=== PATIENT | male | born 1985 | race Caucasian/White ===

== ENCOUNTER 2018-10-16 18:52 | Emergency (ER) | payer SELFPAY ==
--- NOTE | 2018-10-16 19:23 | ER Document Report ---
ED Medical Screen (RME) - General Chief Complaint: Syncope Stated Complaint: SYNCOPE Time Seen by Provider: 10/16/18 19:13 Primary Care Provider: OLGA ARAUJO MD [Primary Care Provider] - Follow up as needed Mode of Arrival: Ambulatory Information source: Patient Notes: This 33-year-old male presents emergency department with reports that he has had a syncopal episode every day for the past 6 days except for today. He reports he has been increased thirst increased urination feeling very shaky. Reports he has been told he was prediabetic. Patient is very obese. Patient reports that when he wakes up he is gasping for air having to hard time breathing. Reports extreme shortness of breath. No recent trips no recent trauma. Brother reports that his lips will turn blue when he passes out. He reports syncopal episode will last 2 to 3 minutes and it is witnessed. He reports he is not standing up he is sitting down when it happens. I have greeted and performed a rapid initial assessment of this patient. A comprehensive ED assessment and evaluation of the patient, analysis of test results and completion of the medical decision making process will be conducted by additional ED providers. Dictation of this chart was performed using voice recognition software; therefore, there may be some unintended grammatical errors. TRAVEL OUTSIDE OF THE [place] IN LAST 30 DAYS: No - Related Data Allergies/Adverse Reactions: erythromycin base [Erythromycin Base] Adverse Reaction (Verified 01/04/14 10:10) fever and vomiting Past Medical History - Social History Chew tobacco use (# tins/day): No Frequency of alcohol use: None Drug Abuse: None - Past Medical History Cardiac Medical History: Reports: Hx Hypertension - does not take medications Endocrine Medical History: Reports: Hx Diabetes Mellitus Type 2 - pre-DM Renal/ Medical History: Denies: Hx Peritoneal Dialysis Past Surgical History: Reports: Hx Orthopedic Surgery - right ankle - Immunizations Hx Diphtheria, Pertussis, Tetanus Vaccination: Yes Physical Exam - Vital signs Vitals: Temp Pulse Resp BP Pulse Ox 98.9 F 134 H 30 H 183/94 H 98 10/16/18 18:58 10/16/18 18:58 10/16/18 18:58 10/16/18 18:58 10/16/18 18:58 Course - Vital Signs Vital signs: Temp Pulse Resp BP Pulse Ox 98.9 F 134 H 30 H 183/94 H 98 10/16/18 18:58 10/16/18 18:58 10/16/18 18:58 10/16/18 18:58 10/16/18 18:58 Doctor's Discharge - Discharge Referrals: OLGA ARAUJO MD [Primary Care Provider] - Follow up as needed
--- NOTE | 2018-10-16 20:19 | RADIOLOGY REPORT (SQ) ---
EXAM DESCRIPTION: CLINICAL HISTORY: 33 years Male, sob COMPARISON: None. FINDINGS: Cardiomediastinal silhouette is not enlarged. No suspicious lung pleural or bone abnormalities. IMPRESSION: Negative chest x-ray
[2018-10-16] MEDS ORDERED: NORMAL SALINE 1000 ML 1,000 ML IV ONE (20:31)
--- NOTE | 2018-10-16 20:31 | ER Document Report ---
ED General - General Chief Complaint: Syncope Stated Complaint: SYNCOPE Time Seen by Provider: 10/16/18 19:13 Primary Care Provider: OLGA ARAUJO MD [NO LOCAL MD] - Follow up as needed Mode of Arrival: Ambulatory TRAVEL OUTSIDE OF THE [place] IN LAST 30 DAYS: No - HPI Patient complains to provider of: Syncope Notes: Morbidly obese 33-year-old male presents with episode of syncope at home today. It occurred while patient was rising from a seated position. Patient suffers from obstructive sleep apnea, obese hypoventilation syndrome. Patient is constantly short of breath. Patient also endorses a weird sensation that he is cold every day. Denies chest pain, cough, nausea, vomiting, fever, chills, trauma. Patient states he does change his job and has not been able to see his family doctor secondary insurance changes. - Related Data Allergies/Adverse Reactions: erythromycin base [Erythromycin Base] Adverse Reaction (Verified 01/04/14 10:10) fever and vomiting Past Medical History - General Information source: Patient - Social History Smoking Status: Never Smoker Chew tobacco use (# tins/day): No Frequency of alcohol use: None Drug Abuse: None Family History: Reviewed & Not Pertinent Patient has suicidal ideation: No Patient has homicidal ideation: No - Past Medical History Cardiac Medical History: Reports: Hx Hypertension - does not take medications Endocrine Medical History: Reports: Hx Diabetes Mellitus Type 2 - pre-DM Renal/ Medical History: Denies: Hx Peritoneal Dialysis Past Surgical History: Reports: Hx Orthopedic Surgery - right ankle - Immunizations Hx Diphtheria, Pertussis, Tetanus Vaccination: Yes Review of Systems - Review of Systems Notes: REVIEW OF SYSTEMS: CONSTITUTIONAL: -fevers, -chills EENT: -eye pain, -difficulty swallowing, -nasal congestion CARDIOVASCULAR: -chest pain, -syncope. RESPIRATORY: -cough, -SOB GASTROINTESTINAL: -abdominal pain, -nausea, -vomiting, -diarrhea GENITOURINARY: -dysuria, -hematuria MUSCULOSKELETAL: -back pain, -neck pain SKIN: -rash or skin lesions. HEMATOLOGIC: -easy bruising or bleeding. LYMPHATIC: -swollen, enlarged glands. NEUROLOGICAL: -altered mental status or loss of consciousness, -headache, - neurologic symptoms PSYCHIATRIC: -anxiety, -depression. ALL OTHER SYSTEMS REVIEWED AND NEGATIVE. Physical Exam - Vital signs Vitals: Temp Pulse Resp BP Pulse Ox 98.9 F 134 H 30 H 183/94 H 98 10/16/18 18:58 10/16/18 18:58 10/16/18 18:58 10/16/18 18:58 10/16/18 18:58 - Notes Notes: PHYSICAL EXAMINATION: GENERAL: Well-appearing, well-nourished and in no acute distress. HEAD: Atraumatic, normocephalic. EYES: Pupils equal round and reactive to light, extraocular movements intact, sclera anicteric, conjunctiva are normal. ENT: nares patent, oropharynx clear without exudates. Moist mucous membranes. NECK: Normal range of motion, supple without lymphadenopathy LUNGS: Breath sounds clear to auscultation bilaterally and equal. No wheezes rales or rhonchi. HEART: Regular rate and rhythm without murmurs ABDOMEN: Soft, nontender, normoactive bowel sounds. No guarding, no rebound. No masses appreciated. EXTREMITIES: Normal range of motion, no pitting or edema. No cyanosis. NEUROLOGICAL: Cranial nerves grossly intact. Normal speech, normal gait. Normal sensory and motor exams. PSYCH: Normal mood, normal affect. SKIN: Warm, Dry, normal turgor, no rashes or lesions noted. Course - Re-evaluation Re-evalutation: 10/16/18 20:41 Morbidly obese 33-year-old male presents with episode of syncope. Patient associated prodromal he got hot and sweaty as he stood up. Then passed out. 10/16/18 22:51 Patient appears to vagovagal syncopal event. Patient's EKG has no ischemic changes, extensive lab work shows no signs of infection, preserved kidney function, negative troponin. Patient has CAT scan chest performed shows no pulmonary embolus or other acute process in the chest. Patient be discharged home improved follow-up PCP. Have lengthy conversation about patient's weight being over 400 pounds at the age of 33 encourage weight loss. Given strict return precautions if anything should change please return. - Vital Signs Vital signs: Temp Pulse Resp BP Pulse Ox 99.7 F 134 H 21 H 183/94 H 99 10/16/18 21:00 10/16/18 18:58 10/16/18 21:00 10/16/18 18:58 10/16/18 21:00 - Laboratory Result Diagrams: 10/16/18 20:23 10/16/18 20:23 Laboratory results interpreted by me: 10/16/18 10/16/18 10/16/18 19:20 20:23 20:23 Seg Neutrophils % 92.6 H Lymphocytes % 6.4 L Monocytes % 0.6 L Absolute Lymphocytes 0.4 L Absolute Monocytes 0.0 L Sodium 136.4 L Glucose 192 H POC Glucose 163 H Alkaline Phosphatase 178 H NT-Pro-B Natriuret Pep Albumin 3.4 L 10/16/18 20:23 Seg Neutrophils % Lymphocytes % Monocytes % Absolute Lymphocytes Absolute Monocytes Sodium Glucose POC Glucose Alkaline Phosphatase NT-Pro-B Natriuret Pep 202 H Albumin - EKG Interpretation by Me EKG shows normal: Sinus rhythm Rate: Tachycardia Additional EKG results interpreted by me: 10/16/18 20:41 Sinus tachycardia 143 bpm, no ST elevations or depressions, no pathologic T wave inversions. Normal QRS, normal QTC Discharge - Discharge Clinical Impression: Weakness Condition: Stable Disposition: HOME, SELF-CARE Instructions: Syncopal Episode ([facility]) Referrals: OLGA ARAUJO MD [NO LOCAL MD] - Follow up as needed
[2018-10-16 20:40] LABS: ABSOLUTE LYMPHOCYTES (AUTO) 0.4 10^3/uL (0.5-4.7); ABSOLUTE NEUT (AUTO) 6.2 10^3/uL (1.7-8.2); BASOPHILS % (AUTO) 0.1 % (0-2); EOSINOPHILS % (AUTO) 0.3 % (0-6); HEMATOCRIT 42.2 % (37.9-51.0); HEMOGLOBIN 14.2 g/dL (13.5-17.0); LYMPHOCYTES % (AUTO) 6.4 % (13-45); MEAN CORPUSCULAR HEMOGLOBIN 27.7 pg (27.0-33.4); MEAN CORPUSCULAR HGB CONC 33.8 g/dL (32.0-36.0); MEAN CORPUSCULAR VOLUME 82 fl (80-97); MONOCYTES % (AUTO) 0.6 % (3-13); PLATELET COUNT 225 10^3/uL (150-450); RED BLOOD COUNT 5.14 10^6/uL (4.35-5.55); RED CELL DISTRIBUTION WIDTH 13.9 % (11.5-14.0); SEGMENTED NEUTROPHILS % (AUTO) 92.6 % (42-78); TOTAL CELLS COUNTED % (AUTO) 100 %; WHITE BLOOD COUNT 6.7 10^3/uL (4.0-10.5)
[2018-10-16 20:46] LABS: INTERNATIONAL RATION (INR) 1.17; PROTHROMBIN TIME 14.9 SEC (11.4-15.4)
[2018-10-16 20:47] LABS: PARTIAL THROMBOPLASTIN TIME 25.7 SEC (23.5-35.8)
[2018-10-16 20:55] LABS: ALBUMIN 3.4 g/dL (3.5-5.0); ALKALINE PHOSPHATASE 178 U/L (38-126); ANION GAP 12 (5-19); ASPARTATE AMINO TRANSFERASE 58 U/L (17-59); BILIRUBIN,DIRECT 0.3 mg/dL (0.0-0.4); BILIRUBIN,TOTAL 0.6 mg/dL (0.2-1.3); BLOOD UREA NITROGEN 10 mg/dL (7-20); CALCIUM 8.8 mg/dL (8.4-10.2); CARBON DIOXIDE 25 mmol/L (22-30); CHLORIDE 99 mmol/L (98-107); GLUCOSE 192 mg/dL (75-110); POTASSIUM 3.6 mmol/L (3.6-5.0); TOTAL PROTEIN 7.3 g/dL (6.3-8.2)
[2018-10-16 21:25] LABS: NT PRO BNP 202 pg/mL (<125)
[2018-10-16 21:28] LABS: TROPONIN I < 0.012 ng/mL
--- NOTE | 2018-10-16 22:12 | RADIOLOGY REPORT (SQ) ---
EXAM DESCRIPTION: CT CHEST ANGIOGRAPHY WITHOUT THEN WITH IV CONTRAST COMPLETED DATE/TME: 10/16/2018 20:38 CLINICAL HISTORY: 33 years, Male, PE COMPARISON: None. TECHNIQUE: 681 Images stored on PACS. All CT scanners at this facility use dose modulation, iterative reconstruction, and/or weight based dosing when appropriate to reduce radiation dose to as low as reasonably achievable (ALARA). Axial CTA images with coronal and sagittal MIPS [facility]: Dose Right [facility]: CareDose [facility]: Dose Right [facility]: Teradose 4D [facility]: [employer] LIMITATIONS: None. FINDINGS: Contrast bolus is suboptimal. No large or central pulmonary embolus. Negative for thoracic aortic aneurysm or dissection. Heart and pericardium are unremarkable. Limited evaluation of upper abdomen shows fatty infiltrative change to the liver. Splenomegaly at 16 cm. Osseous structures are grossly intact. No pneumothorax. Visualized airways are patent. Lungs are clear IMPRESSION: No acute intrathoracic process. Fatty infiltrative change to the liver. Splenomegaly TECHNICAL DOCUMENTATION: Quality ID # 436: Final reports with documentation of one or more dose reduction techniques (e.g., Automated exposure control, adjustment of the mA and/or kV according to patient size, use of iterative reconstruction technique) copyright 2010 [employer]- All Rights Reserved
[2018-10-16 23:54] VITALS: BP 137/76
--- NOTE | 2018-10-17 08:03 | EKG REPORT ---
SEVERITY:- ABNORMAL ECG - SINUS TACHYCARDIA RIGHT AXIS DEVIATION BORDERLINE PROLONGED QT INTERVAL : Confirmed by: Sanjay Marquis MD 17-Oct-2018 08:02:46
== END 2018-10-16 23:56 | disposition home or self-care (01) ==
LOC: ER 18:52
DX: R53.1 Weakness (principal); R55 Syncope and collapse; E66.01 Morbid (severe) obesity due to excess calories; Z88.3 Allergy status to other anti-infective agents
CPT/HCPCS: 93005; 99284; 96360; 36415; 82962; 85025; 85610; 85730; 80053; 84484; 83880; 71046; 71275; 93010; J7030

== ENCOUNTER 2018-10-22 07:34 | Emergency (ER) | payer SELFPAY ==
[2018-10-22 08:02] VITALS: BP 144/86
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
== END 2018-10-22 09:19 | disposition home or self-care (01) ==
LOC: ER 07:34
DX: S30.0XXA Contusion of lower back and pelvis, initial encounter (principal); M25.552 Pain in left hip; W50.0XXA Accidental hit or strike by another person, initial encounter; E11.9 Type 2 diabetes mellitus without complications; I10 Essential (primary) hypertension
CPT/HCPCS: 99283

== ENCOUNTER 2018-10-23 20:28 | Inpatient (IN) | payer SELFPAY ==
[2018-10-23] MEDS ORDERED: ACETAMINOPHEN 325 MG TABLET PO ONE (20:37)
[2018-10-23] MEDS ORDERED: OXYCODONE-ACETAMINOPHEN 5-325 MG TABLET PO ONE (20:59)
[2018-10-23] MEDS ORDERED: NORMAL SALINE 1000 ML 1,000 ML IV ONE (20:59)
[2018-10-23] MEDS ORDERED: ONDANSETRON HCL INJ/PF 4 MG/2 ML SDV IV ONE (20:59)
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
[2018-10-23 22:27] LABS: HEMATOCRIT 37.4 % (37.9-51.0); HEMOGLOBIN 12.6 g/dL (13.5-17.0); MEAN CORPUSCULAR HEMOGLOBIN 27.8 pg (27.0-33.4); MEAN CORPUSCULAR HGB CONC 33.8 g/dL (32.0-36.0); MEAN CORPUSCULAR VOLUME 82 fl (80-97); PLATELET COUNT 274 10^3/uL (150-450); RED BLOOD COUNT 4.54 10^6/uL (4.35-5.55); RED CELL DISTRIBUTION WIDTH 14.6 % (11.5-14.0); WHITE BLOOD COUNT 21.9 10^3/uL (4.0-10.5)
[2018-10-23 22:47] LABS: ABSOLUTE MONOCYTES # (MANUAL) 0.2 10^3/uL (0.1-1.4); BASOPHILS % (MANUAL) 0 % (0-2); EOSINOPHILS % (MANUAL) 0 % (0-6); LYMPHOCYTES % (MANUAL) 9 % (13-45); MONOCYTES % (MANUAL) 1 % (3-13); SEGMENTED NEUTROPHILS % (MAN) 90 % (42-78); TOTAL CELLS COUNTED 100
[2018-10-23 22:48] LABS: ANISOCYTOSIS SLIGHT; PLATELET COMMENT ADEQUATE; POLYCHROMASIA SLIGHT
[2018-10-23 23:20] LABS: ALBUMIN 2.9 g/dL (3.5-5.0); ALKALINE PHOSPHATASE 122 U/L (38-126); ANION GAP 10 (5-19); ASPARTATE AMINO TRANSFERASE 38 U/L (17-59); BILIRUBIN,DIRECT 0.4 mg/dL (0.0-0.4); BILIRUBIN,TOTAL 1.5 mg/dL (0.2-1.3); BLOOD UREA NITROGEN 13 mg/dL (7-20); CALCIUM 8.1 mg/dL (8.4-10.2); CARBON DIOXIDE 21 mmol/L (22-30); CHLORIDE 101 mmol/L (98-107); GLUCOSE 195 mg/dL (75-110); POTASSIUM 3.6 mmol/L (3.6-5.0); TOTAL PROTEIN 7.2 g/dL (6.3-8.2)
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
--- NOTE | 2018-10-24 01:45 | RADIOLOGY REPORT (SQ) ---
EXAM DESCRIPTION: CT ABDOMEN PELVIS WITH IV CONTRAST COMPLETED DATE/TME: 10/23/2018 21:10 CLINICAL HISTORY: 33 years, Male, rectal pain,testicles swollen COMPARISON: None. TECHNIQUE: Axial images of the abdomen and pelvis were performed utilizing intravenous contrast, with sagittal and coronal reformatted images. Images stored on PACS. All CT scanners at this facility use dose modulation, iterative reconstruction, and/or weight based dosing when appropriate to reduce radiation dose to as low as reasonably achievable (ALARA). [facility]: Dose Right [facility]: CareDose [facility]: Dose Right [facility]: Teradose 4D [facility]: [employer] LIMITATIONS: None. FINDINGS: There is inflammation/edema involving the soft tissues of the medial buttock bilaterally. There is a considerable amount of gas within these soft tissues, compatible with gas-forming infection. There are probable small areas of loculated fluid in the region of the inferior prostate gland and in the region of the base of the penis, suspicious for abscesses. This finding is seen well on axial images 95-105. There is a possible hydrocele in the scrotum. There is no evidence of intra-abdominal abscess. There is fatty infiltration of the liver. There is mild bilateral inguinal adenopathy. The appendix appears normal. There is no significant radiographic abnormality of the spleen, pancreas, adrenal glands or kidneys. IMPRESSION: Gas-forming infection in the medial buttock bilaterally. Probable abscess formation in the region of the inferior prostate gland and in the region of the base of the penis. Other findings as described. TECHNICAL DOCUMENTATION: Quality ID # 436: Final reports with documentation of one or more dose reduction techniques (e.g., Automated exposure control, adjustment of the mA and/or kV according to patient size, use of iterative reconstruction technique) copyright 2011 [employer]- All Rights Reserved
[2018-10-24] MEDS ORDERED: PIPERACILLIN/TAZOBACTAM 3.375 GM VIAL IV ONE (02:26)
[2018-10-24] MEDS ORDERED: VANCOMYCIN HCL INJ 1000 MG VIAL IV ONE (02:26)
[2018-10-24] MEDS ORDERED: ONDANSETRON HCL INJ/PF 4 MG/2 ML SDV IV PRN ×2 (02:49→11:30)
[2018-10-24] MEDS ORDERED: DEXTROSE 50%-WATER 25 GM/50 ML DISP.SYRIN IV PRN ×4 (02:55)
[2018-10-24] MEDS ORDERED: GLUCAGON,HUMAN RECOMB 1 MG INJ IM PRN ×2 (02:55)
[2018-10-24] MEDS ORDERED: PIPERACILLIN/TAZOBACTAM 3.375 GM VIAL IV PRN (02:55)
[2018-10-24] MEDS ORDERED: DEXTROSE 40% GEL 15 GM TUBE PO PRN ×4 (02:55)
--- NOTE | 2018-10-24 03:09 | PDOC H&P ---
History of Present Illness Patient complains of: Perianal pain and swelling History of Present Illness: JESSICA THOMAS is a 33 year old male with a 2-day history of perianal pain and swelling. The pain worsened significantly today and began spreading. The patient reports erythema and induration, worse around the anus and extending radially to the right. Patient reports malaise, but denies fevers or chills. He denies any purulent drainage. Nothing makes the pain better. Movement and palpation make it worse. He denies chest pain, shortness of breath, headache, orthostasis, dizziness, blurry vision, hearing difficulty. Past Medical History Cardiac Medical History: Reports: Hypertension - does not take medications Endocrine Medical History: Reports: Diabetes Mellitus Type 2 Past Surgical History Past Surgical History: Reports: Orthopedic Surgery - right ankle Social History Smoking Status: Never Smoker Frequency of Alcohol Use: None Hx Recreational Drug Use: No Hx Prescription Drug Abuse: No Family History Family History: Reviewed & Not Pertinent Parental Family History Reviewed: Yes Children Family History Reviewed: Yes Sibling(s) Family History Reviewed.: Yes Medication/Allergy Home Medications: Lisinopril/Hydrochlorothiazide [Lisinopril-Hctz 20-25 mg Tab] 1 each PO DAILY #30 tablet 01/04/14 Diclofenac Sodium [Voltaren] 75 mg PO BID PRN #20 tablet. 10/22/18 Allergies/Adverse Reactions: erythromycin base [Erythromycin Base] Adverse Reaction (Verified 10/23/18 20:30) fever and vomiting Review of Systems Constitutional: ABSENT: anorexia, chills, fatigue, fever(s), headache(s) Eyes: ABSENT: visual disturbances Ears: ABSENT: hearing changes Nose, Mouth, and Throat: ABSENT: sore throat Cardiovascular: ABSENT: chest pain Respiratory: ABSENT: cough, dyspnea Gastrointestinal: ABSENT: abdominal pain Integumentary: PRESENT: erythema, other - Perirectal pain, swelling, erythema Neurological: ABSENT: confusion, convulsions, dizziness Psychiatric: ABSENT: anxiety, depression Endocrine: ABSENT: cold intolerance, heat intolerance Hematologic/Lymphatic: ABSENT: easy bleeding, easy bruising Physical Exam Vital Signs: Temp Pulse Resp BP Pulse Ox 102.2 F H 133 H 21 H 176/94 H 97 10/23/18 20:36 10/23/18 20:36 10/24/18 00:27 10/24/18 00:54 10/24/18 00:54 Intake & Output 10/22/18 10/23/18 10/24/18 06:59 06:59 06:59 Intake Total 1000 Balance 1000 Weight 192.2 kg General appearance: PRESENT: morbidly obese Head exam: PRESENT: atraumatic, normocephalic Eye exam: PRESENT: EOMI, PERRLA. ABSENT: scleral icterus Mouth exam: PRESENT: moist, neck supple Neck exam: ABSENT: meningismus, tenderness, thyromegaly, tracheal deviation Respiratory exam: PRESENT: clear to auscultation gino, unlabored. ABSENT: chest wall tenderness, tachypnea, wheezes Cardiovascular exam: PRESENT: RRR Pulses: PRESENT: normal radial pulses Vascular exam: PRESENT: normal capillary refill. ABSENT: pallor GI/Abdominal exam: PRESENT: soft. ABSENT: distended, firm, tenderness Rectal exam: PRESENT: tenderness - On rectal exam, other - Large amount of erythema and induration extending from the anus, radially to the right. Gentrourinary exam: PRESENT: scrotal swelling Extremities exam: ABSENT: clubbing Musculoskeletal exam: ABSENT: deformity Neurological exam: PRESENT: alert, awake, oriented to person, oriented to place, oriented to time, oriented to situation, CN II-XII grossly intact Psychiatric exam: ABSENT: agitated, anxious, depressed Focused psych exam: ABSENT: delusional Skin exam: PRESENT: erythema. ABSENT: cyanosis, jaundice Results Laboratory Results: 10/23/18 22:09 10/23/18 22:49 10/23/18 10/23/18 10/23/18 22:09 22:09 22:09 WBC 21.9 H RBC 4.54 Hgb 12.6 L Hct 37.4 L MCV 82 MCH 27.8 MCHC 33.8 RDW 14.6 H Plt Count 274 Seg Neutrophils % Not Reportable Lymphocytes % Not Reportable Monocytes % Not Reportable Eosinophils % Not Reportable Basophils % Not Reportable Absolute Neutrophils Not Reportable Absolute Lymphocytes Not Reportable Absolute Monocytes Not Reportable Absolute Eosinophils Not Reportable Absolute Basophils Not Reportable Sodium Cancelled Potassium Cancelled Chloride Cancelled Carbon Dioxide Cancelled Anion Gap Cancelled BUN Cancelled Creatinine Cancelled Est GFR ( Amer) Cancelled Est GFR (Non-Af Amer) Cancelled Glucose Cancelled Lactic Acid Cancelled Calcium Cancelled Total Bilirubin Cancelled AST Cancelled Alkaline Phosphatase Cancelled Total Protein Cancelled Albumin Cancelled 10/23/18 10/23/18 22:09 22:49 WBC RBC Hgb Hct MCV MCH MCHC RDW Plt Count Seg Neutrophils % Lymphocytes % Monocytes % Eosinophils % Basophils % Absolute Neutrophils Absolute Lymphocytes Absolute Monocytes Absolute Eosinophils Absolute Basophils Sodium 132.1 L Potassium 3.6 Chloride 101 Carbon Dioxide 21 L Anion Gap 10 BUN 13 Creatinine 0.82 Est GFR ( Amer) > 60 Est GFR (Non-Af Amer) > 60 Glucose 195 H Lactic Acid 3.2 H Calcium 8.1 L Total Bilirubin 1.5 H AST 38 Alkaline Phosphatase 122 Total Protein 7.2 Albumin 2.9 L Impressions: Abdomen/Pelvis CT 10/23/18 21:10 IMPRESSION: Gas-forming infection in the medial buttock bilaterally. Probable abscess formation in the region of the inferior prostate gland and in the region of the base of the penis. Other findings as described. TECHNICAL DOCUMENTATION: Quality ID # [id number]: Final reports with documentation of one or more dose reduction techniques (e.g., Automated exposure control, adjustment of the mA and/or kV according to patient size, use of iterative reconstruction technique) copyright 2011 [employer]- All Rights Reserved Assessment & Plan - Diagnosis (1) Perirectal abscess Is this a current diagnosis for this admission?: Yes - Plan Summary Plan Summary: This is a 33-year-old male with a large perirectal abscess. There is pain on rectal examination. The patient has a large amount of induration in the perirectal tissues. I have reviewed the patient's CT scan, and there is a large amount of thickening and stranding in the perirectal area with subcutaneous gas present. On examination, his perirectal abscess is readily evident. I have recommended surgical intervention for the patient. I will make him n.p.o. (he drank water immediately prior to my arrival in the emergency department). The patient has not received any intravenous fluids. 2 L normal saline bolus now. Antibiotics have been ordered, but not given. I have instructed the nursing staff to please give the antibiotics. I will consult medicine to assist with control of the patient's diabetes. I will plan for surgical intervention as soon as is feasible. Risks/benefits discussed, informed consent obtained, and all questions answered.
[2018-10-24] MEDS: NORMAL SALINE 1000 ML 1,000 ML IV PRN ×3 (03:24→10:25)
--- NOTE | 2018-10-24 03:24 | PDOC CONSULTATION ---
Consultation Consult Date: 10/24/18 Provider Consulted: DALIA DEAN History of Present Illness History of Present Illness: JESSICA THOMAS is a 33 year old male who was admitted by the surgical service for a perirectal abscess. Hospitalist service was consulted for medical man agement. He has a history of hypertension but is not on medication because does not have a doctor right now. He said he also used to take metformin for diabetes but he also does not take that now because he has no doctor to prescribe it. His blood pressures were elevated in the ER, primarily his systolic, and his blood sugar was a little bit elevated as well, near 200. Past Medical History Cardiac Medical History: Reports: Hypertension - does not take medications Endocrine Medical History: Reports: Diabetes Mellitus Type 2 Past Surgical History Past Surgical History: Reports: Orthopedic Surgery - right ankle Social History Smoking Status: Never Smoker Frequency of Alcohol Use: None Hx Recreational Drug Use: No Hx Prescription Drug Abuse: No Family History Family History: Reviewed & Not Pertinent Parental Family History Reviewed: Yes - Hypertension, diabetes Children Family History Reviewed: NA Sibling(s) Family History Reviewed.: NA Medication/Allergy Home Medications: Lisinopril/Hydrochlorothiazide [Lisinopril-Hctz 20-25 mg Tab] 1 each PO DAILY #30 tablet 01/04/14 Diclofenac Sodium [Voltaren] 75 mg PO BID PRN #20 tablet. 10/22/18 Allergies/Adverse Reactions: erythromycin base [Erythromycin Base] Adverse Reaction (Verified 10/23/18 20:30) fever and vomiting Review of Systems All systems: reviewed and no additional remarkable complaints except as stated - All systems reviewed and were negative except as noted above Physical Exam Vital Signs: Temp Pulse Resp BP Pulse Ox 102.2 F H 133 H 21 H 176/94 H 97 10/23/18 20:36 10/23/18 20:36 10/24/18 00:27 10/24/18 00:54 10/24/18 00:54 Intake & Output 10/22/18 10/23/18 10/24/18 06:59 06:59 06:59 Intake Total 1000 Balance 1000 Weight 192.2 kg General appearance: PRESENT: no acute distress, cooperative, disheveled, morbidly obese Head exam: PRESENT: atraumatic, normocephalic Eye exam: PRESENT: EOMI, PERRLA. ABSENT: conjunctival injection, nystagmus, scleral icterus Ear exam: PRESENT: normal external ear exam Mouth exam: PRESENT: moist, neck supple Throat exam: ABSENT: post pharyngeal erythema Neck exam: PRESENT: full ROM. ABSENT: carotid bruit, JVD, lymphadenopathy, meningismus, tenderness, thyromegaly Respiratory exam: PRESENT: clear to auscultation gino, symmetrical, unlabored. ABSENT: accessory muscle use, chest wall tenderness, crackles, prolonged expiratory phas, rhonchi, tachypnea, wheezes Cardiovascular exam: PRESENT: RRR, +S1, +S2 Pulses: PRESENT: normal carotid pulses Vascular exam: PRESENT: normal capillary refill GI/Abdominal exam: PRESENT: normal bowel sounds, soft. ABSENT: distended, guarding, rebound, tenderness Extremities exam: ABSENT: clubbing, pedal edema Musculoskeletal exam: PRESENT: normal inspection. ABSENT: deformity Neurological exam: PRESENT: alert, awake, oriented to person, oriented to place, oriented to time, oriented to situation, CN II-XII grossly intact. ABSENT: motor sensory deficit Psychiatric exam: PRESENT: appropriate affect, normal mood Results Laboratory Results: 10/23/18 22:09 10/23/18 22:49 10/23/18 10/23/18 10/23/18 22:09 22:09 22:09 WBC 21.9 H RBC 4.54 Hgb 12.6 L Hct 37.4 L MCV 82 MCH 27.8 MCHC 33.8 RDW 14.6 H Plt Count 274 Seg Neutrophils % Not Reportable Lymphocytes % Not Reportable Monocytes % Not Reportable Eosinophils % Not Reportable Basophils % Not Reportable Absolute Neutrophils Not Reportable Absolute Lymphocytes Not Reportable Absolute Monocytes Not Reportable Absolute Eosinophils Not Reportable Absolute Basophils Not Reportable Sodium Cancelled Potassium Cancelled Chloride Cancelled Carbon Dioxide Cancelled Anion Gap Cancelled BUN Cancelled Creatinine Cancelled Est GFR ( Amer) Cancelled Est GFR (Non-Af Amer) Cancelled Glucose Cancelled Lactic Acid Cancelled Calcium Cancelled Total Bilirubin Cancelled AST Cancelled Alkaline Phosphatase Cancelled Total Protein Cancelled Albumin Cancelled 10/23/18 10/23/18 22:09 22:49 WBC RBC Hgb Hct MCV MCH MCHC RDW Plt Count Seg Neutrophils % Lymphocytes % Monocytes % Eosinophils % Basophils % Absolute Neutrophils Absolute Lymphocytes Absolute Monocytes Absolute Eosinophils Absolute Basophils Sodium 132.1 L Potassium 3.6 Chloride 101 Carbon Dioxide 21 L Anion Gap 10 BUN 13 Creatinine 0.82 Est GFR ( Amer) > 60 Est GFR (Non-Af Amer) > 60 Glucose 195 H Lactic Acid 3.2 H Calcium 8.1 L Total Bilirubin 1.5 H AST 38 Alkaline Phosphatase 122 Total Protein 7.2 Albumin 2.9 L Impressions: Abdomen/Pelvis CT 10/23/18 21:10 IMPRESSION: Gas-forming infection in the medial buttock bilaterally. Probable abscess formation in the region of the inferior prostate gland and in the region of the base of the penis. Other findings as described. TECHNICAL DOCUMENTATION: Quality ID # [id number]: Final reports with documentation of one or more dose reduction techniques (e.g., Automated exposure control, adjustment of the mA and/or kV according to patient size, use of iterative reconstruction technique) copyright 2011 [employer]- All Rights Reserved Assessment and Plan - Diagnosis (1) Diabetes mellitus Qualifiers: Diabetes mellitus type: type 2 Diabetes mellitus long term acute care registered nurse insulin use: without long term acute care registered nurse use Diabetes mellitus complication status: with hyperglycemia Qualified Code(s): E11.65 - Type 2 diabetes mellitus with hyperglycemia Is this a current diagnosis for this admission?: Yes Plan: We will put him on a sliding scale and he can resume metformin whenever he is ready to leave the hospital. (2) Hypertension Qualifiers: Hypertension type: essential hypertension Qualified Code(s): I10 - Essential (primary) hypertension Is this a current diagnosis for this admission?: Yes Plan: He does not remember what blood pressure medicine he used to take, but will put him on some as needed hydralazine for now. (3) Perirectal abscess Is this a current diagnosis for this admission?: Yes Plan: Management per surgery (4) Morbid obesity with BMI of 60.0-69.9, adult Is this a current diagnosis for this admission?: Yes Plan: Strongly encouraged lifestyle modification - Time Time Spent with patient: 35 or more minutes
[2018-10-24] MEDS: PIPERACILLIN SODIUM/TAZOBACTAM 3.375 GM in NORMAL SALINE 100 ML IV SCH ×4 (03:25→20:37)
[2018-10-24] MEDS ORDERED: MIDAZOLAM 2 MG/2 ML INJ ONE (04:58)
[2018-10-24] MEDS ORDERED: FENTANYL CITRATE INJ/PF 100 MCG/2 ML AMPUL ONE (04:58)
[2018-10-24] MEDS ORDERED: PROPOFOL INJ 200 MG/20 ML VIAL IV ONE ×2 (04:58→05:41)
--- NOTE | 2018-10-24 06:48 | Operative Report ---
Nonrecallable Operative Report DATE OF SURGERY: 10/24/18 PREOPERATIVE DIAGNOSIS: Perirectal abscess POSTOPERATIVE DIAGNOSIS: 1. Large perirectal abscess. 2. Necrotizing soft tissue infection involving the skin, fatty tissue, and musculature of the perirectal area. OPERATION: 1. Incision and drainage of a large perirectal abscess. 2. Sharp, excisional debridement of skin, fatty soft tissue, and muscle of the perirectal area SURGEON: DERRICK JASON ANESTHESIA: LMAC - with spinal TISSUE REMOVED OR ALTERED: tissue for culture COMPLICATIONS: none apparent ESTIMATED BLOOD LOSS: 30cc PROCEDURE: Drains/implants: Kerlix soaked in Betadine. Procedure in detail: After informed consent was obtained, the patient was brought into the operating room and laid in the lithotomy position. The area of the perineum and perirectal area were prepped and draped in a normal sterile fashion. An incision was created over the area of maximal induration. Dark, thick purulent material was identified. There was also gas found within the subcutaneous tissues. Dissection was carried down through the soft tissues, into a large cavity. There was necrotic appearing tissue lateral, to the left of the sphincter complex. A large portion of this fatty tissue and muscle was debrided sharply, due to necrosis. Once all obviously necrotic tissue was removed, the cavitywas explored and found to track anteriorly and to the right. A counterincision was made to the right of the midline. The wound was then irrigated. The wound was then packed with a Kerlix soaked in Betadine. A dressing was placed, and the procedure was concluded. All sponge, instrument, and needle counts were correct x2. Condition: Fair.
[2018-10-24] MEDS ORDERED: INSULIN LISPRO 100 UNIT/ML 3 ML VIAL SUBCUT SCH (08:00)
[2018-10-24] MEDS: INSULIN LISPRO 100 UNIT/ML 3 ML VIAL SUBCUT SCH ×4 (08:41→22:08)
[2018-10-24] MEDS ORDERED: METOCLOPRAMIDE HCL INJ/PF 10 MG/2 ML SDV ONE (10:02)
[2018-10-24] MEDS ORDERED: ONDANSETRON HCL INJ/PF 4 MG/2 ML SDV ONE (10:02)
[2018-10-24] MEDS: LOSARTAN POTASSIUM 50 MG TABLET PO SCH (10:25)
[2018-10-24] MEDS: MORPHINE SULFATE 10 MG/ML INJ IV PRN (11:05)
--- NOTE | 2018-10-24 12:20 | PDOC PROGRESS REPORT ---
Subjective Progress Note for:: 10/24/18 Subjective:: Feels better. Portion of packing fell out when patient was out of bed. Reason For Visit: PERIRECTAL ABSCESS Physical Exam Vital Signs: Temp Pulse Resp BP Pulse Ox 98.4 F 96 20 142/72 H 96 10/24/18 08:28 10/24/18 08:28 10/24/18 08:28 10/24/18 08:28 10/24/18 08:28 Intake & Output 10/23/18 10/24/18 10/25/18 06:59 06:59 06:59 Intake Total 3100 1125 Balance 3100 1125 Weight 192.2 kg 192.2 kg General appearance: PRESENT: no acute distress, cooperative Respiratory exam: PRESENT: clear to auscultation gino Cardiovascular exam: PRESENT: RRR Rectal exam: PRESENT: other - Surgical wound appears clean. Half of the packing had fallen out. The exposed wound appears very clean with no necrotic tissue no foul-smelling drainage. The surrounding skin appears healthy. New Kerlex packing was placed. Results Laboratory Results: 10/23/18 22:09 10/23/18 22:49 10/23/18 10/23/18 10/23/18 22:09 22:09 22:09 WBC 21.9 H RBC 4.54 Hgb 12.6 L Hct 37.4 L MCV 82 MCH 27.8 MCHC 33.8 RDW 14.6 H Plt Count 274 Seg Neutrophils % Not Reportable Lymphocytes % Not Reportable Monocytes % Not Reportable Eosinophils % Not Reportable Basophils % Not Reportable Absolute Neutrophils Not Reportable Absolute Lymphocytes Not Reportable Absolute Monocytes Not Reportable Absolute Eosinophils Not Reportable Absolute Basophils Not Reportable Sodium Cancelled Potassium Cancelled Chloride Cancelled Carbon Dioxide Cancelled Anion Gap Cancelled BUN Cancelled Creatinine Cancelled Est GFR ( Amer) Cancelled Est GFR (Non-Af Amer) Cancelled Glucose Cancelled Lactic Acid Cancelled Calcium Cancelled Total Bilirubin Cancelled AST Cancelled Alkaline Phosphatase Cancelled Total Protein Cancelled Albumin Cancelled 10/23/18 10/23/18 10/24/18 22:09 22:49 02:44 WBC RBC Hgb Hct MCV MCH MCHC RDW Plt Count Seg Neutrophils % Lymphocytes % Monocytes % Eosinophils % Basophils % Absolute Neutrophils Absolute Lymphocytes Absolute Monocytes Absolute Eosinophils Absolute Basophils Sodium 132.1 L Potassium 3.6 Chloride 101 Carbon Dioxide 21 L Anion Gap 10 BUN 13 Creatinine 0.82 Est GFR ( Amer) > 60 Est GFR (Non-Af Amer) > 60 Glucose 195 H Lactic Acid 3.2 H 1.1 Calcium 8.1 L Total Bilirubin 1.5 H AST 38 Alkaline Phosphatase 122 Total Protein 7.2 Albumin 2.9 L Impressions: Abdomen/Pelvis CT 10/23/18 21:10 IMPRESSION: Gas-forming infection in the medial buttock bilaterally. Probable abscess formation in the region of the inferior prostate gland and in the region of the base of the penis. Other findings as described. TECHNICAL DOCUMENTATION: Quality ID # [id number]: Final reports with documentation of one or more dose reduction techniques (e.g., Automated exposure control, adjustment of the mA and/or kV according to patient size, use of iterative reconstruction technique) copyright 2011 [employer]- All Rights Reserved Assessment & Plan - Diagnosis (1) Perirectal abscess Is this a current diagnosis for this admission?: Yes Plan: Status post extensive debridement. Patient looks good postoperatively.
[2018-10-24] MEDS: HYDROCODONE/ACETAMINOPHEN 10-325 MG TABLET PO PRN (13:04)
[2018-10-24] MEDS ORDERED: LIDOCAINE 2% INJ-PF (20 MG/ML) 2 ML AMPUL ONE (14:12)
[2018-10-24] MEDS: KETOROLAC TROMETHAMINE INJ/PF 30 MG/1 ML SDV IV SCH ×2 (14:12→22:06)
[2018-10-24] MEDS ORDERED: SUCCINYLCHOLINE CHLORIDE INJ 200 MG/10 ML VIAL ONE (14:12)
[2018-10-25] MEDS: PIPERACILLIN SODIUM/TAZOBACTAM 3.375 GM in NORMAL SALINE 100 ML IV SCH ×4 (02:10→22:02)
[2018-10-25 04:32] LABS: ABSOLUTE BASOPHILS # (AUTO) 0.1 10^3/uL (0.0-0.2); ABSOLUTE MONOCYTES (AUTO) 0.8 10^3/uL (0.1-1.4); BASOPHILS % (AUTO) 0.3 % (0-2); EOSINOPHILS % (AUTO) 0.3 % (0-6); HEMATOCRIT 30.8 % (37.9-51.0); LYMPHOCYTES % (AUTO) 11.9 % (13-45); MEAN CORPUSCULAR HGB CONC 32.8 g/dL (32.0-36.0); MEAN CORPUSCULAR VOLUME 82 fl (80-97); MONOCYTES % (AUTO) 4.5 % (3-13); PLATELET COUNT 249 10^3/uL (150-450); RED BLOOD COUNT 3.75 10^6/uL (4.35-5.55); RED CELL DISTRIBUTION WIDTH 14.3 % (11.5-14.0); TOTAL CELLS COUNTED % (AUTO) 100 %; WHITE BLOOD COUNT 16.9 10^3/uL (4.0-10.5)
[2018-10-25 04:41] LABS: HEMOGLOBIN 10.1 g/dL (13.5-17.0)
[2018-10-25 04:47] LABS: ANION GAP 8 (5-19); BLOOD UREA NITROGEN 14 mg/dL (7-20); CALCIUM 7.2 mg/dL (8.4-10.2); CARBON DIOXIDE 26 mmol/L (22-30); CHLORIDE 102 mmol/L (98-107); GLUCOSE 128 mg/dL (75-110); POTASSIUM 3.7 mmol/L (3.6-5.0)
[2018-10-25] MEDS: KETOROLAC TROMETHAMINE INJ/PF 30 MG/1 ML SDV IV SCH ×3 (06:35→22:02)
[2018-10-25] MEDS: INSULIN LISPRO 100 UNIT/ML 3 ML VIAL SUBCUT SCH ×4 (07:43→22:03)
[2018-10-25] MEDS: LOSARTAN POTASSIUM 50 MG TABLET PO SCH (09:54)
--- NOTE | 2018-10-25 09:55 | PDOC PROGRESS REPORT ---
Subjective Progress Note for:: 10/25/18 Subjective:: Pains I&D site left perirectal area Reason For Visit: PERIRECTAL ABSCESS Physical Exam Vital Signs: Temp Pulse Resp BP Pulse Ox 97.8 F 91 18 157/71 H 98 10/25/18 07:41 10/25/18 07:41 10/25/18 07:41 10/25/18 07:41 10/25/18 07:41 Intake & Output 10/24/18 10/25/18 10/26/18 06:59 06:59 06:59 Intake Total 3100 4025 100 Balance 3100 4025 100 Weight 192.2 kg 191.6 kg Exam: Packing removed with foul smelling kerlix. No drainage Results Laboratory Results: 10/25/18 03:42 10/25/18 03:42 10/25/18 10/25/18 03:42 03:42 WBC 16.9 H RBC 3.75 L Hgb 10.1 L D Hct 30.8 L MCV 82 MCH 27.0 MCHC 32.8 RDW 14.3 H Plt Count 249 Seg Neutrophils % 83.0 H Lymphocytes % 11.9 L Monocytes % 4.5 Eosinophils % 0.3 Basophils % 0.3 Absolute Neutrophils 14.0 H Absolute Lymphocytes 2.0 Absolute Monocytes 0.8 Absolute Eosinophils 0.0 Absolute Basophils 0.1 Sodium 135.7 L Potassium 3.7 Chloride 102 Carbon Dioxide 26 Anion Gap 8 BUN 14 Creatinine 0.82 Est GFR ( Amer) > 60 Est GFR (Non-Af Amer) > 60 Glucose 128 H Calcium 7.2 L Impressions: Abdomen/Pelvis CT 10/23/18 21:10 IMPRESSION: Gas-forming infection in the medial buttock bilaterally. Probable abscess formation in the region of the inferior prostate gland and in the region of the base of the penis. Other findings as described. TECHNICAL DOCUMENTATION: Quality ID # [id number]: Final reports with documentation of one or more dose reduction techniques (e.g., Automated exposure control, adjustment of the mA and/or kV according to patient size, use of iterative reconstruction technique) copyright 2010 [employer]- All Rights Reserved Assessment & Plan - Diagnosis (1) Diabetes mellitus Qualifiers: Diabetes mellitus type: type 2 Diabetes mellitus long-term insulin use: without long-term use Diabetes mellitus complication status: with hyperglycemia Qualified Code(s): E11.65 - Type 2 diabetes mellitus with hyperglycemia Is this a current diagnosis for this admission?: Yes (2) Morbid obesity with BMI of 60.0-69.9, adult Is this a current diagnosis for this admission?: Yes (3) Perirectal abscess Is this a current diagnosis for this admission?: Yes - Time Time Spent with patient: 15-24 minutes - Inpatient Certification Medical Necessity: Need for IV Antibiotics - Plan Summary Plan Summary: Start Hot Sitz baths Continue IV antibiotics Resume diet but keep NPO from [employer] for possible repacking in the OR Check WBC in AM . If goes up will do re-evaluation of I&D site in the OR tomorrow.
--- NOTE | 2018-10-25 17:28 | PDOC PROGRESS REPORT ---
Subjective Progress Note for:: 10/25/18 Subjective:: This is a 33-year-old male with a past medical history of hypertension with noncompliance to medications who was admitted under surgery for perirectal abscess. Hospice service is consulted for his hypertension. He underwent an initial I&D yesterday. No acute event overnight. He denies acute complaints. He still has testicular swelling and drainage from the site of incision. He is going for repeat debridement tomorrow. He was started on losartan yesterday. Also offered HIV testing as part of current guidelines but patient refused. Reason For Visit: PERIRECTAL ABSCESS Physical Exam Vital Signs: Temp Pulse Resp BP Pulse Ox 98.7 F 84 16 149/78 H 95 10/25/18 12:00 10/25/18 12:00 10/25/18 12:00 10/25/18 12:00 10/25/18 12:00 Intake & Output 10/24/18 10/25/18 10/26/18 06:59 06:59 06:59 Intake Total 3100 4025 200 Balance 3100 4025 200 Weight 423 lb 11.655 oz 422 lb 6.491 oz General appearance: PRESENT: no acute distress, morbidly obese Head exam: PRESENT: atraumatic, normocephalic Eye exam: PRESENT: conjunctiva pink, EOMI, PERRLA. ABSENT: scleral icterus Ear exam: PRESENT: normal external ear exam Mouth exam: PRESENT: moist, tongue midline Neck exam: ABSENT: carotid bruit, JVD, lymphadenopathy, thyromegaly Respiratory exam: PRESENT: clear to auscultation gino. ABSENT: rales, rhonchi, wheezes Cardiovascular exam: PRESENT: RRR. ABSENT: diastolic murmur, rubs, systolic murmur Pulses: PRESENT: normal dorsalis pedis pul GI/Abdominal exam: PRESENT: normal bowel sounds, soft. ABSENT: distended, guarding, mass, organolmegaly, rebound, tenderness Rectal exam: PRESENT: deferred Extremities exam: PRESENT: full ROM. ABSENT: calf tenderness, clubbing, pedal edema Neurological exam: PRESENT: alert, awake, oriented to person, oriented to place, oriented to time, oriented to situation, CN II-XII grossly intact. ABSENT: motor sensory deficit Results Laboratory Results: 10/25/18 03:42 10/25/18 03:42 10/25/18 10/25/18 03:42 03:42 WBC 16.9 H RBC 3.75 L Hgb 10.1 L D Hct 30.8 L MCV 82 MCH 27.0 MCHC 32.8 RDW 14.3 H Plt Count 249 Seg Neutrophils % 83.0 H Lymphocytes % 11.9 L Monocytes % 4.5 Eosinophils % 0.3 Basophils % 0.3 Absolute Neutrophils 14.0 H Absolute Lymphocytes 2.0 Absolute Monocytes 0.8 Absolute Eosinophils 0.0 Absolute Basophils 0.1 Sodium 135.7 L Potassium 3.7 Chloride 102 Carbon Dioxide 26 Anion Gap 8 BUN 14 Creatinine 0.82 Est GFR ( Amer) > 60 Est GFR (Non-Af Amer) > 60 Glucose 128 H Calcium 7.2 L Impressions: Abdomen/Pelvis CT 10/23/18 21:10 IMPRESSION: Gas-forming infection in the medial buttock bilaterally. Probable abscess formation in the region of the inferior prostate gland and in the region of the base of the penis. Other findings as described. TECHNICAL DOCUMENTATION: Quality ID # 436: Final reports with documentation of one or more dose reduction techniques (e.g., Automated exposure control, adjustment of the mA and/or kV according to patient size, use of iterative reconstruction technique) copyright 2011 [employer]- All Rights Reserved Assessment and Plan - Diagnosis (1) Perirectal abscess Is this a current diagnosis for this admission?: Yes (2) Diabetes mellitus Qualifiers: Diabetes mellitus type: type 2 Diabetes mellitus [facility] insulin use: without superintendent container terminal use Diabetes mellitus complication status: with hyperglycemia Qualified Code(s): E11.65 - Type 2 diabetes mellitus with hyperglycemia Is this a current diagnosis for this admission?: Yes Plan: Hba1c came back at 10. Sugars are running in the 100s. Plan to initiate metformin first when he is close to discharge. (3) Hypertension Qualifiers: Hypertension type: essential hypertension Qualified Code(s): I10 - Essential (primary) hypertension Is this a current diagnosis for this admission?: Yes Plan: Blood pressure is not at goal yet. Will increase losartan to 100 mg daily. (4) Morbid obesity with BMI of 60.0-69.9, adult Is this a current diagnosis for this admission?: Yes Plan: Counseled on weight loss. - Time Time Spent with patient: 25-34 minutes
[2018-10-26] MEDS: PIPERACILLIN SODIUM/TAZOBACTAM 3.375 GM in NORMAL SALINE 100 ML IV SCH ×4 (02:32→21:53)
[2018-10-26] MEDS: NORMAL SALINE 1000 ML 1,000 ML IV PRN (02:32)
[2018-10-26 04:42] LABS: ABSOLUTE LYMPHOCYTES (AUTO) 1.9 10^3/uL (0.5-4.7); ABSOLUTE MONOCYTES (AUTO) 0.9 10^3/uL (0.1-1.4); ABSOLUTE NEUT (AUTO) 11.2 10^3/uL (1.7-8.2); BASOPHILS % (AUTO) 0.3 % (0-2); EOSINOPHILS % (AUTO) 0.3 % (0-6); HEMATOCRIT 29.3 % (37.9-51.0); HEMOGLOBIN 9.7 g/dL (13.5-17.0); LYMPHOCYTES % (AUTO) 13.5 % (13-45); MEAN CORPUSCULAR HEMOGLOBIN 27.3 pg (27.0-33.4); MEAN CORPUSCULAR HGB CONC 33.3 g/dL (32.0-36.0); MEAN CORPUSCULAR VOLUME 82 fl (80-97); MONOCYTES % (AUTO) 6.6 % (3-13); PLATELET COUNT 324 10^3/uL (150-450); RED BLOOD COUNT 3.57 10^6/uL (4.35-5.55); RED CELL DISTRIBUTION WIDTH 14.1 % (11.5-14.0); SEGMENTED NEUTROPHILS % (AUTO) 79.3 % (42-78); TOTAL CELLS COUNTED % (AUTO) 100 %; WHITE BLOOD COUNT 14.1 10^3/uL (4.0-10.5)
[2018-10-26] MEDS: KETOROLAC TROMETHAMINE INJ/PF 30 MG/1 ML SDV IV SCH ×3 (06:29→21:53)
[2018-10-26] MEDS: INSULIN LISPRO 100 UNIT/ML 3 ML VIAL SUBCUT SCH ×4 (07:41→21:52)
[2018-10-26] MEDS: HYDRALAZINE HCL INJ/PF 20 MG/1 ML SDV IV PRN ×2 (08:15→17:34)
[2018-10-26] MEDS ORDERED: MIDAZOLAM 2 MG/2 ML INJ ONE (08:55)
[2018-10-26] MEDS ORDERED: FENTANYL CITRATE INJ/PF 100 MCG/2 ML AMPUL ONE (08:55)
[2018-10-26] MEDS ORDERED: PROPOFOL INJ 200 MG/20 ML VIAL IV ONE (08:56)
[2018-10-26] MEDS ORDERED: PROMETHAZINE HCL INJ 25 MG/1 ML VIAL IV PRN ×2 (10:29)
[2018-10-26] MEDS ORDERED: MORPHINE SULFATE 10 MG/ML INJ IV PRN (10:29)
[2018-10-26] MEDS ORDERED: MEPERIDINE HCL/PF INJ 25 MG/1 ML DISP.SYRIN IV PRN (10:29)
[2018-10-26] MEDS ORDERED: ONDANSETRON HCL INJ/PF 4 MG/2 ML SDV IV PRN (10:29)
[2018-10-26] MEDS ORDERED: DIPHENHYDRAMINE HCL 50 MG/ML VIAL IV PRN (10:29)
[2018-10-26] MEDS ORDERED: FENTANYL CITRATE INJ/PF 100 MCG/2 ML AMPUL IV PRN ×3 (10:29)
[2018-10-26] MEDS ORDERED: OXYCODONE-ACETAMINOPHEN 5-325 MG TABLET PO PRN ×2 (10:29)
[2018-10-26] MEDS: LOSARTAN POTASSIUM 50 MG TABLET PO SCH (12:49)
--- NOTE | 2018-10-26 13:54 | PDOC PROGRESS REPORT ---
Subjective Progress Note for:: 10/26/18 Subjective:: This is a 33-year-old male with a past medical history of hypertension with noncompliance to medications who was admitted under surgery for perirectal abscess. Hospice service is consulted for his hypertension. 10/25: He underwent an initial I&D yesterday. No acute event overnight. He denies acute complaints. He still has testicular swelling and drainage from the site of incision. He is going for repeat debridement tomorrow. He was started on losartan yesterday. Also offered HIV testing as part of current guidelines but patient refused. 10/26: No acute event overnight. He denies acute complaints. He is going for repeat I&D today. Blood pressures are better after increasing losartan. Sugars are at goal. Reason For Visit: PERIRECTAL ABSCESS Physical Exam Vital Signs: Temp Pulse Resp BP Pulse Ox 99.1 F 81 24 H 168/72 H 99 10/26/18 12:00 10/26/18 12:00 10/26/18 12:00 10/26/18 12:00 10/26/18 12:00 Intake & Output 10/25/18 10/26/18 10/27/18 06:59 06:59 06:59 Intake Total 5025 500 4100 Output Total 3010 Balance 5025 500 1090 Weight 422 lb 6.491 oz 431 lb 0.059 oz General appearance: PRESENT: no acute distress, morbidly obese Head exam: PRESENT: atraumatic, normocephalic Eye exam: PRESENT: conjunctiva pink, EOMI, PERRLA. ABSENT: scleral icterus Ear exam: PRESENT: normal external ear exam Mouth exam: PRESENT: moist, tongue midline Neck exam: ABSENT: carotid bruit, JVD, lymphadenopathy, thyromegaly Respiratory exam: PRESENT: clear to auscultation gino. ABSENT: rales, rhonchi, wheezes Cardiovascular exam: PRESENT: RRR. ABSENT: diastolic murmur, rubs, systolic murmur Pulses: PRESENT: normal dorsalis pedis pul GI/Abdominal exam: PRESENT: normal bowel sounds, soft. ABSENT: distended, guarding, mass, organolmegaly, rebound, tenderness Rectal exam: PRESENT: deferred Extremities exam: PRESENT: full ROM. ABSENT: calf tenderness, clubbing, pedal edema Neurological exam: PRESENT: alert, awake, oriented to person, oriented to place, oriented to time, oriented to situation, CN II-XII grossly intact. ABSENT: motor sensory deficit Results Laboratory Results: 10/26/18 04:00 10/25/18 03:42 10/26/18 04:00 WBC 14.1 H RBC 3.57 L Hgb 9.7 L Hct 29.3 L MCV 82 MCH 27.3 MCHC 33.3 RDW 14.1 H Plt Count 324 Seg Neutrophils % 79.3 H Lymphocytes % 13.5 Monocytes % 6.6 Eosinophils % 0.3 Basophils % 0.3 Absolute Neutrophils 11.2 H Absolute Lymphocytes 1.9 Absolute Monocytes 0.9 Absolute Eosinophils 0.0 Absolute Basophils 0.0 Impressions: Abdomen/Pelvis CT 10/23/18 21:10 IMPRESSION: Gas-forming infection in the medial buttock bilaterally. Probable abscess formation in the region of the inferior prostate gland and in the region of the base of the penis. Other findings as described. TECHNICAL DOCUMENTATION: Quality ID # 436: Final reports with documentation of one or more dose reduction techniques (e.g., Automated exposure control, adjustment of the mA and/or kV according to patient size, use of iterative reconstruction technique) copyright 2011 [employer]- All Rights Reserved Assessment and Plan - Diagnosis (1) Perirectal abscess Is this a current diagnosis for this admission?: Yes Plan: He is going for repeat I&D today. Continue Zosyn. Blood culture ig growing gram neg rods 1/2. Culture from abscess is poymicrobial. (2) Diabetes mellitus Qualifiers: Diabetes mellitus type: type 2 Diabetes mellitus [facility] insulin use: without animal daycare provider use Diabetes mellitus complication status: with hyperglycemia Qualified Code(s): E11.65 - Type 2 diabetes mellitus with hyperglycemia Is this a current diagnosis for this admission?: Yes Plan: Hba1c came back at 10. Sugars are running in the 100s. Plan to initiate metformin first when he is close to discharge. (3) Hypertension Qualifiers: Hypertension type: essential hypertension Qualified Code(s): I10 - Essential (primary) hypertension Is this a current diagnosis for this admission?: Yes Plan: 10/25: Blood pressure is not at goal yet. Will increase losartan to 100 mg daily. 10/26: Blood pressures are better after increasing losartan. (4) Morbid obesity with BMI of 60.0-69.9, adult Is this a current diagnosis for this admission?: Yes Plan: Counseled on weight loss. - Time Time Spent with patient: 25-34 minutes
[2018-10-26] MEDS: HYDROCODONE/ACETAMINOPHEN 10-325 MG TABLET PO PRN (17:41)
--- NOTE | 2018-10-26 23:14 | Operative Report ---
Operative Report DATE OF SURGERY: 10/26/18 PREOPERATIVE DIAGNOSIS: Necrotic tissue at the prvious Debridement site at the left perirectal area POSTOPERATIVE DIAGNOSIS: same OPERATION: Debridement of necrotic tissue at the left perirectal area SURGEON: VLADIMIR ASENCIO ANESTHESIA: Spinal COMPLICATIONS: none ESTIMATED BLOOD LOSS: 30 ccs INTRAOPERATIVE FINDINGS: Necrotic tissue around the surrounding abscess cavity site and on the deep part including fascia and muscle PROCEDURE: After adequate spinal anesthesia patient was placed on the right side down decubitus position in the left perianal and perineal areas were then prepped and draped in the usual sterile fashion. An appropriate timeout was then called. With the use of scalpel and scissors the necrotic tissue around the surface of the abscess cavity was then debrided. There was some more necrotic tissue on the deep part towards the fascia area and muscle that was also sharply debrided. There was some good back bleeding noted after the debridement. The cavity was then pulse lavaged using about 3 L of saline. The cavity was subsequently packed with Kerlix soaked in Betadine. It was then dressed with 4 x 4 and ABD. Patient tolerated procedure well. Estimated blood loss was about 30 cc. Patient was then brought to the recovery room in satisfactory condition.
[2018-10-27] MEDS: LOPERAMIDE HCL 2 MG CAPSULE PO PRN (01:16)
[2018-10-27] MEDS: PIPERACILLIN SODIUM/TAZOBACTAM 3.375 GM in NORMAL SALINE 100 ML IV SCH ×4 (02:36→21:46)
[2018-10-27] MEDS: KETOROLAC TROMETHAMINE INJ/PF 30 MG/1 ML SDV IV SCH ×3 (06:33→21:45)
[2018-10-27] MEDS: INSULIN LISPRO 100 UNIT/ML 3 ML VIAL SUBCUT SCH ×4 (08:41→21:37)
[2018-10-27 09:18] LABS: ABSOLUTE EOSINOPHILS # (AUTO) 0.1 10^3/uL (0.0-0.6); ABSOLUTE LYMPHOCYTES (AUTO) 1.7 10^3/uL (0.5-4.7); ABSOLUTE MONOCYTES (AUTO) 0.6 10^3/uL (0.1-1.4); ABSOLUTE NEUT (AUTO) 8.5 10^3/uL (1.7-8.2); BASOPHILS % (AUTO) 0.4 % (0-2); EOSINOPHILS % (AUTO) 0.7 % (0-6); HEMATOCRIT 28.7 % (37.9-51.0); HEMOGLOBIN 9.7 g/dL (13.5-17.0); LYMPHOCYTES % (AUTO) 15.6 % (13-45); MEAN CORPUSCULAR HEMOGLOBIN 27.7 pg (27.0-33.4); MEAN CORPUSCULAR HGB CONC 33.8 g/dL (32.0-36.0); MEAN CORPUSCULAR VOLUME 82 fl (80-97); MONOCYTES % (AUTO) 5.9 % (3-13); PLATELET COUNT 385 10^3/uL (150-450); RED BLOOD COUNT 3.49 10^6/uL (4.35-5.55); RED CELL DISTRIBUTION WIDTH 14.2 % (11.5-14.0); SEGMENTED NEUTROPHILS % (AUTO) 77.4 % (42-78); TOTAL CELLS COUNTED % (AUTO) 100 %
[2018-10-27] MEDS: HYDROCODONE/ACETAMINOPHEN 10-325 MG TABLET PO PRN (09:24)
[2018-10-27] MEDS: LOSARTAN POTASSIUM 50 MG TABLET PO SCH (09:25)
[2018-10-27 09:33] LABS: ANION GAP 9 (5-19); BLOOD UREA NITROGEN 7 mg/dL (7-20); CALCIUM 7.6 mg/dL (8.4-10.2); CARBON DIOXIDE 24 mmol/L (22-30); CHLORIDE 102 mmol/L (98-107); GLUCOSE 167 mg/dL (75-110); POTASSIUM 3.9 mmol/L (3.6-5.0)
[2018-10-27] MEDS ORDERED: AMLODIPINE BESYLATE 5 MG TABLET PO SCH (10:00)
--- NOTE | 2018-10-27 12:34 | PDOC PROGRESS REPORT ---
Subjective Progress Note for:: 10/27/18 Subjective:: no c/o Reason For Visit: PERIRECTAL ABSCESS Physical Exam Vital Signs: Temp Pulse Resp BP Pulse Ox 98.3 F 80 17 183/90 H 98 10/27/18 11:44 10/27/18 11:44 10/27/18 11:44 10/27/18 11:44 10/27/18 11:44 Intake & Output 10/26/18 10/27/18 10/28/18 06:59 06:59 06:59 Intake Total 500 6140 100 Output Total 3710 Balance 500 2430 100 Weight 195.5 kg 195.5 kg General appearance: PRESENT: no acute distress Rectal exam: PRESENT: other - left buttock surgical wound granulating with a superficial layer of dusky tissue, minimal odor; right buttock area with small opening granulating Gentrourinary exam: PRESENT: erythema - of the scrotum, scrotal swelling Results Laboratory Results: 10/27/18 08:56 10/27/18 08:56 10/27/18 10/27/18 08:56 08:56 WBC 11.0 H RBC 3.49 L Hgb 9.7 L Hct 28.7 L MCV 82 MCH 27.7 MCHC 33.8 RDW 14.2 H Plt Count 385 Seg Neutrophils % 77.4 Lymphocytes % 15.6 Monocytes % 5.9 Eosinophils % 0.7 Basophils % 0.4 Absolute Neutrophils 8.5 H Absolute Lymphocytes 1.7 Absolute Monocytes 0.6 Absolute Eosinophils 0.1 Absolute Basophils 0.0 Sodium 134.9 L Potassium 3.9 Chloride 102 Carbon Dioxide 24 Anion Gap 9 BUN 7 Creatinine 0.74 Est GFR ( Amer) > 60 Est GFR (Non-Af Amer) > 60 Glucose 167 H Calcium 7.6 L Impressions: Abdomen/Pelvis CT 10/23/18 21:10 IMPRESSION: Gas-forming infection in the medial buttock bilaterally. Probable abscess formation in the region of the inferior prostate gland and in the region of the base of the penis. Other findings as described. TECHNICAL DOCUMENTATION: Quality ID # 436: Final reports with documentation of one or more dose reduction techniques (e.g., Automated exposure control, adjustment of the mA and/or kV according to patient size, use of iterative reconstruction technique) copyright 2011 [employer]- All Rights Reserved Assessment & Plan - Plan Summary Plan Summary: A/ POD #4 and 2 after I&D left perirectal abscess Debrided area granulating with a few superficial islands of dusky tissue WBC 11 Cx preliminary: multiple organisms, mostly gram negatives and positives as well as gram positive rods, and Streptococcus P/ continue wound dressing change with NS wet-to-dry will observe progress of wound tomorrow and possibly plan additional debridment in 2-3 days once the ischemic tissue has demarcated Insert Phelps Nystatin cream to scrotum Nystatin po 400 mg x 1, then daily 200 mg
--- NOTE | 2018-10-27 12:49 | PDOC PROGRESS REPORT ---
Subjective Progress Note for:: 10/27/18 Subjective:: This is a 33-year-old male with a past medical history of hypertension with noncompliance to medications who was admitted under surgery for perirectal abscess. Hospice service is consulted for his hypertension. 10/25: He underwent an initial I&D yesterday. No acute event overnight. He denies acute complaints. He still has testicular swelling and drainage from the site of incision. He is going for repeat debridement tomorrow. He was started on losartan yesterday. Also offered HIV testing as part of current guidelines but patient refused. 10/26: He denies acute complaints. He is going for repeat I&D today. Blood pressures are better after increasing losartan. Sugars are at goal. 10/27: No acute event overnight. He denies acute complaints. He may need further debridement in 2-3 days per surgery. Blood pressures running high on losartan. Will add amlodipine. Sugars at goal. Reason For Visit: PERIRECTAL ABSCESS Physical Exam Vital Signs: Temp Pulse Resp BP Pulse Ox 98.3 F 80 17 183/90 H 98 10/27/18 11:44 10/27/18 11:44 10/27/18 11:44 10/27/18 11:44 10/27/18 11:44 Intake & Output 10/26/18 10/27/18 10/28/18 06:59 06:59 06:59 Intake Total 500 6140 100 Output Total 3710 Balance 500 2430 100 Weight 431 lb 0.059 oz 431 lb 0.059 oz General appearance: PRESENT: no acute distress, morbidly obese Head exam: PRESENT: atraumatic, normocephalic Eye exam: PRESENT: conjunctiva pink, EOMI, PERRLA. ABSENT: scleral icterus Mouth exam: PRESENT: moist, tongue midline Neck exam: ABSENT: carotid bruit, JVD, lymphadenopathy, thyromegaly Respiratory exam: PRESENT: clear to auscultation gino. ABSENT: rales, rhonchi, wheezes Cardiovascular exam: PRESENT: RRR. ABSENT: diastolic murmur, rubs, systolic murmur Pulses: PRESENT: normal dorsalis pedis pul GI/Abdominal exam: PRESENT: normal bowel sounds, soft. ABSENT: distended, guarding, mass, organolmegaly, rebound, tenderness Rectal exam: PRESENT: deferred Neurological exam: PRESENT: alert, awake, oriented to person, oriented to place, oriented to time, oriented to situation, CN II-XII grossly intact. ABSENT: motor sensory deficit Results Laboratory Results: 10/27/18 08:56 10/27/18 08:56 10/27/18 10/27/18 08:56 08:56 WBC 11.0 H RBC 3.49 L Hgb 9.7 L Hct 28.7 L MCV 82 MCH 27.7 MCHC 33.8 RDW 14.2 H Plt Count 385 Seg Neutrophils % 77.4 Lymphocytes % 15.6 Monocytes % 5.9 Eosinophils % 0.7 Basophils % 0.4 Absolute Neutrophils 8.5 H Absolute Lymphocytes 1.7 Absolute Monocytes 0.6 Absolute Eosinophils 0.1 Absolute Basophils 0.0 Sodium 134.9 L Potassium 3.9 Chloride 102 Carbon Dioxide 24 Anion Gap 9 BUN 7 Creatinine 0.74 Est GFR ( Amer) > 60 Est GFR (Non-Af Amer) > 60 Glucose 167 H Calcium 7.6 L Impressions: Abdomen/Pelvis CT 10/23/18 21:10 IMPRESSION: Gas-forming infection in the medial buttock bilaterally. Probable abscess formation in the region of the inferior prostate gland and in the region of the base of the penis. Other findings as described. TECHNICAL DOCUMENTATION: Quality ID # 436: Final reports with documentation of one or more dose reduction techniques (e.g., Automated exposure control, adjustment of the mA and/or kV according to patient size, use of iterative reconstruction technique) copyright 2011 [employer]- All Rights Reserved Assessment and Plan - Diagnosis (1) Perirectal abscess Is this a current diagnosis for this admission?: Yes Plan: He is going for repeat I&D today. Continue Zosyn. Blood culture is growing gram neg rods 1/. Culture from abscess is poy microbial. 10/27: He may need further debridement in 2-3 days per surgery. (2) Diabetes mellitus Qualifiers: Diabetes mellitus type: type 2 Diabetes mellitus [employer] insulin use: without detention use Diabetes mellitus complication status: with hyperglycemia Qualified Code(s): E11.65 - Type 2 diabetes mellitus with hyperglycemia Is this a current diagnosis for this admission?: Yes Plan: Hba1c came back at 10. Sugars are running in the 100s. Plan to initiate metformin when he is close to discharge. (3) Hypertension Qualifiers: Hypertension type: essential hypertension Qualified Code(s): I10 - Essential (primary) hypertension Is this a current diagnosis for this admission?: Yes Plan: 10/25: Blood pressure is not at goal yet. Will increase losartan to 100 mg daily. 10/26: Blood pressures are better after increasing losartan. 10/27: Blood pressures running high on losartan. Will add amlodipine. (4) Morbid obesity with BMI of 60.0-69.9, adult Is this a current diagnosis for this admission?: Yes Plan: Counseled on weight loss. - Time Time Spent with patient: 25-34 minutes
[2018-10-27] MEDS ORDERED: FLUCONAZOLE 400 MG/NS RTU 400 MG/200 ML RTUPB IV ONE (14:00)
[2018-10-27] MEDS: NYSTATIN CREAM 15 GM TP SCH (18:05)
[2018-10-28] MEDS: PIPERACILLIN SODIUM/TAZOBACTAM 3.375 GM in NORMAL SALINE 100 ML IV SCH ×4 (02:06→21:47)
[2018-10-28] MEDS: KETOROLAC TROMETHAMINE INJ/PF 30 MG/1 ML SDV IV SCH (05:40)
[2018-10-28] MEDS: INSULIN LISPRO 100 UNIT/ML 3 ML VIAL SUBCUT SCH ×4 (08:10→22:58)
[2018-10-28] MEDS: HYDROCODONE/ACETAMINOPHEN 10-325 MG TABLET PO PRN (08:17)
[2018-10-28] MEDS: LOSARTAN POTASSIUM 50 MG TABLET PO SCH (09:11)
[2018-10-28] MEDS: AMLODIPINE BESYLATE 5 MG TABLET PO SCH (09:12)
[2018-10-28] MEDS: NYSTATIN CREAM 15 GM TP SCH ×2 (09:12→21:45)
[2018-10-28] MEDS: FLUCONAZOLE 200 MG/NS RTU 200 MG/100 ML RTUPB IV SCH (09:44)
--- NOTE | 2018-10-28 11:46 | PDOC PROGRESS REPORT ---
Subjective Progress Note for:: 10/28/18 Subjective:: This is a 33-year-old male with a past medical history of hypertension with noncompliance to medications who was admitted under surgery for perirectal abscess. Hospitalist service is consulted for his hypertension and DM. 10/25: He underwent an initial I&D yesterday. No acute event overnight. He denies acute complaints. He still has testicular swelling and drainage from the site of incision. He is going for repeat debridement tomorrow. He was started on losartan yesterday. Also offered HIV testing as part of current guidelines but patient refused. 10/26: He denies acute complaints. He is going for repeat I&D today. Blood pressures are better after increasing losartan. Sugars are at goal. 10/27: He denies acute complaints. He may need further debridement in 2-3 days per surgery. Blood pressures running high on losartan. Will add amlodipine. Sugars at goal. 10/28: No acute event overnight. Denies abdominal pain. Primary service planning to repeat debridement tomorrow. Blood pressures not at goal yet after adding amlodipine yesterday. Continue losartan 100 mg daily. Will increase amlodipine to 10 mg daily. Blood sugars remain at goal. Recommend restarting him on metformin 1000 mg bid upon discharge as he does say he was on metformin before but stopped taking it. Reason For Visit: PERIRECTAL ABSCESS Physical Exam Vital Signs: Temp Pulse Resp BP Pulse Ox 98.3 F 80 16 146/76 H 98 10/28/18 08:00 10/28/18 08:00 10/28/18 08:00 10/28/18 08:00 10/28/18 08:00 Intake & Output 10/27/18 10/28/18 10/29/18 06:59 06:59 06:59 Intake Total 6140 1080 Output Total 3710 1300 Balance 2430 -220 Weight 431 lb 0.059 oz General appearance: PRESENT: no acute distress, morbidly obese Head exam: PRESENT: atraumatic, normocephalic Eye exam: PRESENT: conjunctiva pink, EOMI, PERRLA. ABSENT: scleral icterus Ear exam: PRESENT: normal external ear exam Mouth exam: PRESENT: moist, tongue midline Neck exam: ABSENT: carotid bruit, JVD, lymphadenopathy, thyromegaly Respiratory exam: PRESENT: clear to auscultation gino. ABSENT: rales, rhonchi, wheezes Cardiovascular exam: PRESENT: RRR. ABSENT: diastolic murmur, rubs, systolic murmur Pulses: PRESENT: normal dorsalis pedis pul GI/Abdominal exam: PRESENT: normal bowel sounds, soft. ABSENT: distended, guarding, mass, organolmegaly, rebound, tenderness Rectal exam: PRESENT: deferred Neurological exam: PRESENT: alert, awake, oriented to person, oriented to place, oriented to time, oriented to situation, CN II-XII grossly intact. ABSENT: motor sensory deficit Results Laboratory Results: 10/27/18 08:56 10/27/18 08:56 Impressions: Abdomen/Pelvis CT 10/23/18 21:10 IMPRESSION: Gas-forming infection in the medial buttock bilaterally. Probable abscess formation in the region of the inferior prostate gland and in the region of the base of the penis. Other findings as described. TECHNICAL DOCUMENTATION: Quality ID # [id number]: Final reports with documentation of one or more dose reduction techniques (e.g., Automated exposure control, adjustment of the mA and/or kV according to patient size, use of iterative reconstruction technique) copyright 2011 [employer]- All Rights Reserved Assessment and Plan - Diagnosis (1) Perirectal abscess Is this a current diagnosis for this admission?: Yes Plan: He is going for repeat I&D today. Continue Zosyn. Blood culture is growing gram neg rods 1/2. Culture from abscess is poymi crobial. 10/27: He may need further debridement in 2-3 days per surgery. 10/28: Primary service planning to repeat debridement tomorrow. (2) Diabetes mellitus Qualifiers: Diabetes mellitus type: type 2 Diabetes mellitus nursing home insulin use: without termination clerk use Diabetes mellitus complication status: with hyperglycemia Qualified Code(s): E11.65 - Type 2 diabetes mellitus with hyperglycemia Is this a current diagnosis for this admission?: Yes Plan: Hba1c came back at 10. 10/27: Blood sugars remain at goal. Recommend restarting him on metformin 1000 mg bid upon discharge as he does say he was on metformin before but stopped taking it. (3) Hypertension Qualifiers: Hypertension type: essential hypertension Qualified Code(s): I10 - Essential (primary) hypertension Is this a current diagnosis for this admission?: Yes Plan: 10/25: Blood pressure is not at goal yet. Will increase losartan to 100 mg daily. 10/26: Blood pressures are better after increasing losartan. 10/27: Blood pressures running high on losartan. Will add amlodipine. 10/28: Blood pressures not at goal yet after adding amlodipine yesterday. Continue losartan 100 mg daily. Will increase amlodipine to 10 mg daily. (4) Morbid obesity with BMI of 60.0-69.9, adult Is this a current diagnosis for this admission?: Yes Plan: Counseled on weight loss. - Time Time Spent with patient: 25-34 minutes
--- NOTE | 2018-10-28 13:09 | PDOC PROGRESS REPORT ---
Subjective Progress Note for:: 10/28/18 Subjective:: no c/o Reason For Visit: PERIRECTAL ABSCESS Physical Exam Vital Signs: Temp Pulse Resp BP Pulse Ox 97.9 F 75 18 191/99 H 99 10/28/18 12:00 10/28/18 12:00 10/28/18 12:00 10/28/18 12:00 10/28/18 12:00 Intake & Output 10/27/18 10/28/18 10/29/18 06:59 06:59 06:59 Intake Total 6140 1080 Output Total 3710 1300 Balance 2430 -220 Weight 195.5 kg General appearance: PRESENT: no acute distress Respiratory exam: PRESENT: clear to auscultation gino Cardiovascular exam: PRESENT: RRR GI/Abdominal exam: PRESENT: soft, other - massively obese Rectal exam: PRESENT: other - left gluteus: surgical wound with bed granulating and areas of necrosis and purulent/fibrinous drainage witrh odor; Right gluteus; surgical wound with rick iof necrosis Gentrourinary exam: PRESENT: scrotal swelling - erythematous, indwelling catheter Results Laboratory Results: 10/27/18 08:56 10/27/18 08:56 10/23/18 22:49 Blood Blood Culture - Final Propionibacterium Species 10/24/18 05:52 Perirectal Gram Stain - Final 10/24/18 05:52 Perirectal Wound Culture - Final Escherichia Coli Enterococcus Faecalis(Group D) Group B Beta Streptococcus Impressions: Abdomen/Pelvis CT 10/23/18 21:10 IMPRESSION: Gas-forming infection in the medial buttock bilaterally. Probable abscess formation in the region of the inferior prostate gland and in the region of the base of the penis. Other findings as described. TECHNICAL DOCUMENTATION: Quality ID # [id number]: Final reports with documentation of one or more dose reduction techniques (e.g., Automated exposure control, adjustment of the mA and/or kV according to patient size, use of iterative reconstruction technique) copyright 2011 [employer]- All Rights Reserved Assessment & Plan - Diagnosis (1) Diabetes mellitus Qualifiers: Diabetes mellitus type: type 2 Diabetes mellitus medical terminologist insulin use: without usp use Diabetes mellitus complication status: with hyperglycemia Qualified Code(s): E11.65 - Type 2 diabetes mellitus with hyperglycemia Is this a current diagnosis for this admission?: Yes (2) Hypertension Qualifiers: Hypertension type: essential hypertension Qualified Code(s): I10 - Essential (primary) hypertension Is this a current diagnosis for this admission?: Yes (3) Perirectal abscess Is this a current diagnosis for this admission?: Yes - Plan Summary Plan Summary: A/ POD#4 and 2 after debridment of left and rigfht perirectal abscess Both perirectal surgical wounds have odor and drainage with areas of superficial necrosis Normal WBC 11 Wound cx are goring mutliple organisms sensitive to current ABX regimen HTN not well controlled on current regimen P/ Plan debridment right and left gluteus perirectal abscess in AM NPO after MN hold Lovenox Consult hospitalist for HTN management
[2018-10-28] MEDS ORDERED: DEXTROSE 50%-WATER 25 GM/50 ML DISP.SYRIN IV PRN ×2 (13:14)
[2018-10-28] MEDS ORDERED: GLUCAGON,HUMAN RECOMB 1 MG INJ SUBCUT PRN (13:14)
[2018-10-28] MEDS ORDERED: DEXTROSE 40% GEL 15 GM TUBE PO PRN ×2 (13:14)
[2018-10-28] MEDS: HYDRALAZINE HCL INJ/PF 20 MG/1 ML SDV IV PRN ×3 (13:24→20:44)
[2018-10-28] MEDS ORDERED: HYDRALAZINE HCL INJ/PF 20 MG/1 ML SDV ONE (16:23)
[2018-10-28] MEDS: MORPHINE SULFATE 10 MG/ML INJ IV PRN (17:30)
[2018-10-28] MEDS: HYDROCHLOROTHIAZIDE 25 MG TABLET PO SCH (19:37)
[2018-10-29] MEDS: MORPHINE SULFATE 10 MG/ML INJ IV PRN ×2 (01:42→20:29)
[2018-10-29] MEDS: HYDRALAZINE HCL INJ/PF 20 MG/1 ML SDV IV PRN ×2 (01:43→16:43)
[2018-10-29] MEDS: PIPERACILLIN SODIUM/TAZOBACTAM 3.375 GM in NORMAL SALINE 100 ML IV SCH ×4 (02:40→20:21)
[2018-10-29] MEDS: INSULIN LISPRO 100 UNIT/ML 3 ML VIAL SUBCUT SCH ×4 (08:50→22:21)
[2018-10-29] MEDS: LOSARTAN POTASSIUM 50 MG TABLET PO SCH (09:58)
[2018-10-29] MEDS: HYDROCHLOROTHIAZIDE 25 MG TABLET PO SCH (09:59)
[2018-10-29] MEDS: NYSTATIN CREAM 15 GM TP SCH ×2 (09:59→17:19)
[2018-10-29] MEDS: AMLODIPINE BESYLATE 5 MG TABLET PO SCH (09:59)
[2018-10-29] MEDS: FLUCONAZOLE 200 MG/NS RTU 200 MG/100 ML RTUPB IV SCH (10:40)
--- NOTE | 2018-10-29 11:52 | PDOC PROGRESS REPORT ---
Subjective Progress Note for:: 10/29/18 Reason For Visit: PERIRECTAL ABSCESS Physical Exam Vital Signs: Temp Pulse Resp BP Pulse Ox 97.9 F 99 18 185/89 H 97 10/29/18 01:36 10/29/18 01:36 10/29/18 01:36 10/29/18 01:36 10/29/18 01:36 Intake & Output 10/28/18 10/29/18 10/30/18 06:59 06:59 06:59 Intake Total 1080 7020 Output Total 1300 5925 Balance -220 1095 Weight 193.4 kg Results Laboratory Results: 10/27/18 08:56 10/27/18 08:56 10/23/18 22:09 Blood Blood Culture - Final NO GROWTH IN 5 DAYS 10/23/18 22:49 Blood Blood Culture - Final Propionibacterium Species 10/24/18 05:52 Perirectal Gram Stain - Final 10/24/18 05:52 Perirectal Wound Culture - Final Escherichia Coli Enterococcus Faecalis(Group D) Group B Beta Streptococcus Impressions: Abdomen/Pelvis CT 10/23/18 21:10 IMPRESSION: Gas-forming infection in the medial buttock bilaterally. Probable abscess formation in the region of the inferior prostate gland and in the region of the base of the penis. Other findings as described. TECHNICAL DOCUMENTATION: Quality ID # [id number]: Final reports with documentation of one or more dose reduction techniques (e.g., Automated exposure control, adjustment of the mA and/or kV according to patient size, use of iterative reconstruction technique) copyright 2011 [employer]- All Rights Reserved Assessment & Plan - Diagnosis (1) Perirectal abscess Is this a current diagnosis for this admission?: Yes - Plan Summary Plan Summary: This is a 33-year-old male with a perirectal abscess, extending into a necrotizing soft tissue infection of the perirectal tissues. The patient underwent reexamination with debridement several days ago. The patient is due for another examination with possible debridement today. I have discussed this with the patient. The goal is to remove all nonviable/marginal tissue, to accelerate wound healing and alleviate the infection. The patient and his mother were present for the discussion. They are in agreement with the treatment plan. Risks/benefits discussed, informed consent obtained, and all questions answered. Continue antibiotics. Continue antifungals for severe yeast infection of the groin/perineum. Lovenox for DVT prophylaxis Aggressive blood sugar control.
[2018-10-29] MEDS ORDERED: CLONIDINE HCL 0.2 MG TABLET PO ONE ×2 (13:00→15:00)
[2018-10-29] MEDS ORDERED: MIDAZOLAM 2 MG/2 ML INJ ONE (13:17)
[2018-10-29] MEDS ORDERED: FENTANYL CITRATE INJ/PF 100 MCG/2 ML AMPUL ONE (13:17)
[2018-10-29] MEDS ORDERED: PROPOFOL INJ 200 MG/20 ML VIAL IV ONE ×3 (13:18→15:01)
[2018-10-29] MEDS ORDERED: BUPIVACAINE HCL 0.25 % INJ/PF (2.5 MG/1 ML) 30 ML VIAL ONE (13:58)
[2018-10-29] MEDS ORDERED: LIDOCAINE 1% INJ-PF (10 MG/ML) 30 ML SDV ONE (13:58)
[2018-10-29] MEDS ORDERED: MEPERIDINE HCL/PF INJ 25 MG/1 ML DISP.SYRIN IV PRN (14:00)
[2018-10-29] MEDS ORDERED: PROMETHAZINE HCL INJ 25 MG/1 ML VIAL IV PRN ×2 (14:00)
[2018-10-29] MEDS ORDERED: DIPHENHYDRAMINE HCL 50 MG/ML VIAL IV PRN (14:00)
[2018-10-29] MEDS ORDERED: OXYCODONE-ACETAMINOPHEN 5-325 MG TABLET PO PRN ×2 (14:00)
[2018-10-29] MEDS ORDERED: FENTANYL CITRATE INJ/PF 100 MCG/2 ML AMPUL IV PRN ×3 (14:00)
[2018-10-29] MEDS ORDERED: MORPHINE SULFATE 10 MG/ML INJ IV PRN (14:00)
[2018-10-29] MEDS: HYDROMORPHONE HCL INJ/PF 2 MG/ML AMPULE ONE ×2 (14:50→14:55)
[2018-10-29] MEDS: FENTANYL CITRATE INJ/PF 100 MCG/2 ML AMPUL ONE ×2 (15:00→15:05)
--- NOTE | 2018-10-29 15:08 | Operative Report ---
Nonrecallable Operative Report DATE OF SURGERY: 10/29/18 PREOPERATIVE DIAGNOSIS: Necrotizing soft tissue infection in the perirectal area POSTOPERATIVE DIAGNOSIS: 1. Persistence of necrotizing soft tissue infection of the perirectal area, requiring further debridement. 2. More necrotic tissue found posteriorly, toward the sacrum OPERATION: Sharp, excisional debridement of skin, fatty tissue, and muscle in the perirectal area. SURGEON: DERRICK JASON ANESTHESIA: LMAC TISSUE REMOVED OR ALTERED: No specimens taken. COMPLICATIONS: None apparent ESTIMATED BLOOD LOSS: 30 cc PROCEDURE: Drains/implants: Kerlix soaked in Betadine. Procedure in detail: After informed consent was obtained, the patient was brought to the operating room and laid in the right lateral decubitus position. The wound was cleaned. The area was prepped and draped in a normal sterile fashion. Inspection was undertaken. There was a large amount of necrotic tissue laterally and posteriorly. This was excised away sharply using curved Felix scissors. A large cavity full of purulent material was found posteriorly, toward the sacrum. A counterincision was made over this large cavity. Again, sharp excisional debridement was used to remove skin, fatty tissue, and muscle in this area. Once all of the necrotic tissue had been excised, hemostasis was achieved using electrocautery. The wound was then packed with Kerlix soaked in Betadine. The estimated size of debridement was 25 cm. All sponge, instrument, and needle counts were correct x2. Condition: Fair.
--- NOTE | 2018-10-29 15:56 | Progress Note Acknowledgement ---
Progress Note Acknowledgement Progess Note Acknowledgement: I, the undersigned member of the medical staff with appropriate privileges and with supervisory authority over [ PAC], a dependent practice allied health professional, acknowledge that I have reviewed the progress notes entered on this patient, and in my professional judgment believe that the assessment made and/or any care evidenced was appropriate
[2018-10-29] MEDS ORDERED: METFORMIN HCL 500 MG TABLET PO SCH (16:00)
--- NOTE | 2018-10-29 16:03 | PDOC PROGRESS REPORT ---
Subjective Progress Note for:: 10/29/18 Subjective:: 10/29/2018 patient went to the OR today where sharp excisional debridement of skin fatty tissue and muscle in the perirectal area was performed. A large cavity full of purulent material was found posteriorly toward the sacrum was drained. Patient is on Diflucan's as well as Zosyn and also nystatin cream Reason For Visit: PERIRECTAL ABSCESS Physical Exam Vital Signs: Temp Pulse Resp BP Pulse Ox 98 F 90 18 179/73 H 93 10/29/18 15:50 10/29/18 15:50 10/29/18 15:50 10/29/18 15:50 10/29/18 15:50 Intake & Output 10/28/18 10/29/18 10/30/18 06:59 06:59 06:59 Intake Total 1080 7020 Output Total 1300 5925 Balance -220 1095 Weight 193.4 kg General appearance: PRESENT: mild distress Respiratory exam: PRESENT: clear to auscultation gino. ABSENT: rales, rhonchi, wheezes Cardiovascular exam: PRESENT: RRR. ABSENT: diastolic murmur, rubs, systolic murmur Rectal exam: PRESENT: deferred - General surgery Neurological exam: PRESENT: alert, awake, oriented to person, oriented to place, oriented to time, oriented to situation, CN II-XII grossly intact. ABSENT: motor sensory deficit Psychiatric exam: PRESENT: appropriate affect, normal mood. ABSENT: homicidal ideation, suicidal ideation Results Laboratory Results: 10/27/18 08:56 10/27/18 08:56 10/23/18 22:09 Blood Blood Culture - Final NO GROWTH IN 5 DAYS 10/23/18 22:49 Blood Blood Culture - Final Propionibacterium Species 10/24/18 05:52 Perirectal Gram Stain - Final 10/24/18 05:52 Perirectal Wound Culture - Final Escherichia Coli Enterococcus Faecalis(Group D) Group B Beta Streptococcus Impressions: Abdomen/Pelvis CT 10/23/18 21:10 IMPRESSION: Gas-forming infection in the medial buttock bilaterally. Probable abscess formation in the region of the inferior prostate gland and in the region of the base of the penis. Other findings as described. TECHNICAL DOCUMENTATION: Quality ID # [id number]: Final reports with documentation of one or more dose reduction techniques (e.g., Automated exposure control, adjustment of the mA and/or kV according to patient size, use of iterative reconstruction technique) copyright 2010 [id number]- All Rights Reserved Assessment and Plan - Diagnosis (1) Diabetes mellitus Qualifiers: Diabetes mellitus type: type 2 Diabetes mellitus intermediate insulin use: without intermediate use Diabetes mellitus complication status: with hyperglycemia Qualified Code(s): E11.65 - Type 2 diabetes mellitus with hyperglycemia Is this a current diagnosis for this admission?: Yes Plan: Hba1c came back at 10. 10/27: Blood sugars remain at goal. Recommend restarting him on metformin 1000 mg bid upon discharge as he does say he was on metformin before but stopped taking it. 10/29/2018 patient's hemoglobin A1c is 10 h and his metformin will be increased to thousand twice daily on metformin (2) Hypertension Qualifiers: Hypertension type: essential hypertension Qualified Code(s): I10 - Essential (primary) hypertension Is this a current diagnosis for this admission?: Yes Plan: 10/25: Blood pressure is not at goal yet. Will increase losartan to 100 mg daily. 10/26: Blood pressures are better after increasing losartan. 10/27: Blood pressures running high on losartan. Will add amlodipine. 10/28: Blood pressures not at goal yet after adding amlodipine yesterday. Continue losartan 100 mg daily. Will increase amlodipine to 10 mg daily. 10/29/2018 amlodipine increased to 10 daily losartan 100 mg daily Catapres was added today as needed (3) Morbid obesity with BMI of 60.0-69.9, adult Is this a current diagnosis for this admission?: Yes Plan: Counseled on weight loss. 10/29/2018 better control of his diabetes and his diet (4) Perirectal abscess Is this a current diagnosis for this admission?: Yes Plan: He is going for repeat I&D today. Continue Zosyn. Blood culture is growing gram neg rods 1/2. Culture from abscess is poymicrobial. 10/27: He may need further debridement in 2-3 days per surgery. 10/28: Primary service planning to repeat debridement tomorrow. 10/29/2018 event was performed again today by general surgery remains on Zosyn, Diflucan's, nystatin - Time Time Spent with patient: 25-34 minutes
[2018-10-29] MEDS: METFORMIN HCL 500 MG TABLET PO SCH (16:25)
[2018-10-29] MEDS: HYDROCODONE/ACETAMINOPHEN 10-325 MG TABLET PO PRN (17:19)
[2018-10-29] MEDS: NORMAL SALINE 1000 ML 1,000 ML IV PRN (18:04)
[2018-10-30] MEDS: MORPHINE SULFATE 10 MG/ML INJ IV PRN ×2 (00:44→16:23)
[2018-10-30] MEDS: PIPERACILLIN SODIUM/TAZOBACTAM 3.375 GM in NORMAL SALINE 100 ML IV SCH ×4 (02:22→20:44)
[2018-10-30] MEDS: NORMAL SALINE 1000 ML 1,000 ML IV PRN ×2 (08:11→22:45)
[2018-10-30] MEDS: METFORMIN HCL 500 MG TABLET PO SCH ×2 (08:11→16:23)
[2018-10-30] MEDS: INSULIN LISPRO 100 UNIT/ML 3 ML VIAL SUBCUT SCH ×4 (09:06→22:28)
[2018-10-30] MEDS: AMLODIPINE BESYLATE 5 MG TABLET PO SCH (09:13)
[2018-10-30] MEDS: LOSARTAN POTASSIUM 50 MG TABLET PO SCH (09:13)
[2018-10-30] MEDS: HYDROCHLOROTHIAZIDE 25 MG TABLET PO SCH (09:13)
[2018-10-30] MEDS: NYSTATIN CREAM 15 GM TP SCH ×2 (09:14→17:14)
[2018-10-30] MEDS ORDERED: ENOXAPARIN SODIUM INJ 40 MG/0.4 ML DISP.SYRIN SUBCUT SCH (10:00)
[2018-10-30] MEDS: HYDROCODONE/ACETAMINOPHEN 10-325 MG TABLET PO PRN ×3 (10:08→20:06)
[2018-10-30] MEDS: FLUCONAZOLE 200 MG/NS RTU 200 MG/100 ML RTUPB IV SCH (10:11)
--- NOTE | 2018-10-30 10:12 | PDOC PROGRESS REPORT ---
Subjective Progress Note for:: 10/30/18 Subjective:: no c/o Reason For Visit: PERIRECTAL ABSCESS Physical Exam Vital Signs: Temp Pulse Resp BP Pulse Ox 98.0 F 88 17 186/74 H 97 10/30/18 08:21 10/30/18 08:21 10/30/18 08:21 10/30/18 08:21 10/30/18 08:21 Intake & Output 10/29/18 10/30/18 10/31/18 06:59 06:59 06:59 Intake Total 7020 2791 Output Total 5968 3554 Balance 1095 -759 Weight 193.4 kg 200.4 kg General appearance: PRESENT: no acute distress Rectal exam: PRESENT: other - large surgical defect of left medial buttock, deep necrotic tissue,. no odor Results Laboratory Results: 10/27/18 08:56 10/27/18 08:56 Impressions: Abdomen/Pelvis CT 10/23/18 21:10 IMPRESSION: Gas-forming infection in the medial buttock bilaterally. Probable abscess formation in the region of the inferior prostate gland and in the region of the base of the penis. Other findings as described. TECHNICAL DOCUMENTATION: Quality ID # [id number]: Final reports with documentation of one or more dose reduction techniques (e.g., Automated exposure control, adjustment of the mA and/or kV according to patient size, use of iterative reconstruction technique) copyright 2011 [employer]- All Rights Reserved Assessment & Plan - Diagnosis (1) Diabetes mellitus Qualifiers: Diabetes mellitus type: type 2 Diabetes mellitus retirement insulin use: without retirement use Diabetes mellitus complication status: with hyperglycemia Qualified Code(s): E11.65 - Type 2 diabetes mellitus with hyperglycemia Is this a current diagnosis for this admission?: Yes (2) Hypertension Qualifiers: Hypertension type: essential hypertension Qualified Code(s): I10 - Essential (primary) hypertension Is this a current diagnosis for this admission?: Yes (3) Perirectal abscess Is this a current diagnosis for this admission?: Yes - Plan Summary Plan Summary: A/ pod # 6, 4, 1 after left gluteal abscess debridment Still area o necrotic tissue deep on the left gluteus P/ To OR tomorrow for debridment left buttock NPO IVF Continue IV abx
[2018-10-30] MEDS ORDERED: GLUCAGON,HUMAN RECOMB 1 MG INJ SUBCUT PRN (10:14)
[2018-10-30] MEDS ORDERED: DEXTROSE 50%-WATER 25 GM/50 ML DISP.SYRIN IV PRN ×2 (10:14)
[2018-10-30] MEDS ORDERED: DEXTROSE 40% GEL 15 GM TUBE PO PRN ×2 (10:14)
--- NOTE | 2018-10-30 11:20 | PDOC PROGRESS REPORT ---
Subjective Progress Note for:: 10/30/18 Subjective:: 10/29/2018 patient went to the OR today where sharp excisional debridement of skin fatty tissue and muscle in the perirectal area was performed. A large cavity full of purulent material was found posteriorly toward the sacrum was drained. Patient is on Diflucan's as well as Zosyn and also nystatin cream 10/30/2018 patient blood pressures are fluctuating ever they are tending to run elevated most of the time increase patient's blood pressure medication. Patient remains afebrile O2 sats 97% on room air. General surgery seeing the patient daily concerning abscess Reason For Visit: PERIRECTAL ABSCESS Physical Exam Vital Signs: Temp Pulse Resp BP Pulse Ox 98.0 F 88 17 186/74 H 97 10/30/18 08:21 10/30/18 08:21 10/30/18 08:21 10/30/18 08:21 10/30/18 08:21 Intake & Output 10/29/18 10/30/18 10/31/18 06:59 06:59 06:59 Intake Total 7020 2791 340 Output Total 5946 3550 Balance 1095 -759 340 Weight 193.4 kg 200.4 kg General appearance: PRESENT: no acute distress, well-developed, well-nourished Head exam: PRESENT: atraumatic, normocephalic Respiratory exam: PRESENT: clear to auscultation gino. ABSENT: rales, rhonchi, wheezes Cardiovascular exam: PRESENT: RRR. ABSENT: diastolic murmur, rubs, systolic murmur Rectal exam: PRESENT: other - Deferred to general surgery's care Neurological exam: PRESENT: alert, awake, oriented to person, oriented to place, oriented to time, oriented to situation, CN II-XII grossly intact. ABSENT: motor sensory deficit Psychiatric exam: PRESENT: appropriate affect, normal mood, other - Patient in good spirits. ABSENT: homicidal ideation, suicidal ideation Results Laboratory Results: 10/27/18 08:56 10/27/18 08:56 Impressions: Abdomen/Pelvis CT 10/23/18 21:10 IMPRESSION: Gas-forming infection in the medial buttock bilaterally. Probable abscess formation in the region of the inferior prostate gland and in the region of the base of the penis. Other findings as described. TECHNICAL DOCUMENTATION: Quality ID # [id number]: Final reports with documentation of one or more dose reduction techniques (e.g., Automated exposure control, adjustment of the mA and/or kV according to patient size, use of iterative reconstruction technique) copyright 2010 [employer]- All Rights Reserved Assessment and Plan - Diagnosis (1) Diabetes mellitus Qualifiers: Diabetes mellitus type: type 2 Diabetes mellitus group home insulin use: without predatory animal exterminator use Diabetes mellitus complication status: with hyperglycemia Qualified Code(s): E11.65 - Type 2 diabetes mellitus with hyperglycemia Is this a current diagnosis for this admission?: Yes Plan: Hba1c came back at 10. 10/27: Blood sugars remain at goal. Recommend restarting him on metformin 1000 mg bid upon discharge as he does say he was on metformin before but stopped taking it. 10/29/2018 patient's hemoglobin A1c is 10 h and his metformin will be increased to thousand twice daily on metformin 10/30/2018 blood sugars running around 140-to 150 patient also being covered on a sliding scale (2) Hypertension Qualifiers: Hypertension type: essential hypertension Qualified Code(s): I10 - Essential (primary) hypertension Is this a current diagnosis for this admission?: Yes Plan: 10/25: Blood pressure is not at goal yet. Will increase losartan to 100 mg daily. 10/26: Blood pressures are better after increasing losartan. 10/27: Blood pressures running high on losartan. Will add amlodipine. 10/28: Blood pressures not at goal yet after adding amlodipine yesterday. Continue losartan 100 mg daily. Will increase amlodipine to 10 mg daily. 10/29/2018 amlodipine increased to 10 daily losartan 100 mg daily Catapres was added today as needed 10/30/2018 patient's blood pressure still running high however this is day 2 on the increase of Norvasc, some of this could be related to pain, and patient not having been on medication prior to hospitalization, due to noncompliance (3) Morbid obesity with BMI of 60.0-69.9, adult Is this a current diagnosis for this admission?: Yes Plan: Counseled on weight loss. 10/29/2018 better control of his diabetes and his diet 10/30/2018 patient's weight on admission was 192 kg, patient's weight today is 200 kg, will consult dietary (4) Perirectal abscess Is this a current diagnosis for this admission?: Yes Plan: He is going for repeat I&D today. Continue Zosyn. Blood culture is growing gram neg rods 03/13. Culture from abscess is poymicrobial. 10/27: He may need further debridement in 2-3 days per surgery. 10/28: Primary service planning to repeat debridement tomorrow. 10/29/2018 event was performed again today by general surgery remains on Zosyn, Diflucan's, nystatin 10/30/2018. Patient is being seen daily by general surgery, continued debridement, continue antibiotics - Time Time Spent with patient: 25-34 minutes
[2018-10-30] MEDS: HYDRALAZINE HCL INJ/PF 20 MG/1 ML SDV IV PRN ×2 (12:42→16:47)
[2018-10-31] MEDS: MORPHINE SULFATE 10 MG/ML INJ IV PRN ×2 (00:14→23:42)
[2018-10-31] MEDS: NORMAL SALINE 1000 ML 1,000 ML IV PRN ×2 (04:45→11:21)
[2018-10-31] MEDS: METFORMIN HCL 500 MG TABLET PO SCH ×2 (08:21→16:23)
[2018-10-31] MEDS: INSULIN LISPRO 100 UNIT/ML 3 ML VIAL SUBCUT SCH ×4 (08:21→21:06)
[2018-10-31] MEDS: AMLODIPINE BESYLATE 5 MG TABLET PO SCH (08:59)
[2018-10-31] MEDS: LOSARTAN POTASSIUM 50 MG TABLET PO SCH (08:59)
[2018-10-31] MEDS: HYDROCHLOROTHIAZIDE 25 MG TABLET PO SCH (08:59)
[2018-10-31] MEDS: FLUCONAZOLE 200 MG/NS RTU 200 MG/100 ML RTUPB IV SCH (09:01)
[2018-10-31] MEDS: NYSTATIN CREAM 15 GM TP SCH ×2 (09:01→17:58)
--- NOTE | 2018-10-31 09:36 | PDOC PROGRESS REPORT ---
Subjective Progress Note for:: 10/31/18 Subjective:: no c/o Reason For Visit: PERIRECTAL ABSCESS Physical Exam Vital Signs: Temp Pulse Resp BP Pulse Ox 98.1 F 75 12 182/79 H 97 10/31/18 08:32 10/31/18 08:32 10/31/18 08:32 10/31/18 08:32 10/31/18 08:32 Intake & Output 10/30/18 10/31/18 11/01/18 06:59 06:59 06:59 Intake Total 2791 2240 Output Total 3550 3500 Balance -759 -1260 Weight 200.4 kg 194.7 kg Rectal exam: PRESENT: other - debrided area with odor and drainage, granualting, area deep by the anus and rectum Results Laboratory Results: 10/27/18 08:56 10/27/18 08:56 Impressions: Abdomen/Pelvis CT 10/23/18 21:10 IMPRESSION: Gas-forming infection in the medial buttock bilaterally. Probable abscess formation in the region of the inferior prostate gland and in the region of the base of the penis. Other findings as described. TECHNICAL DOCUMENTATION: Quality ID # [id number]: Final reports with documentation of one or more dose reduction techniques (e.g., Automated exposure control, adjustment of the mA and/or kV according to patient size, use of iterative reconstruction technique) copyright 2011 [employer]- All Rights Reserved Assessment & Plan - Diagnosis (1) Diabetes mellitus Qualifiers: Diabetes mellitus type: type 2 Diabetes mellitus termite treater helper insulin use: without termite treater helper use Diabetes mellitus complication status: with hyperglycemia Qualified Code(s): E11.65 - Type 2 diabetes mellitus with hyperglycemia Is this a current diagnosis for this admission?: Yes (2) Hypertension Qualifiers: Hypertension type: essential hypertension Qualified Code(s): I10 - Essential (primary) hypertension Is this a current diagnosis for this admission?: Yes (3) Perirectal abscess Is this a current diagnosis for this admission?: Yes - Plan Summary Plan Summary: A/ Morbid obesity POD # 7,5,2, after debridment of perirectal abscess Presence of necrotic tissue with odor and drainage from deep portion of wound by anus and rectum P/ Continue NPO Plan debridment of deep portion of abscess cavity today. Will change dressing change with Dakin's solution wet-to-dry BID
[2018-10-31 10:04] LABS: ABSOLUTE BASOPHILS # (AUTO) 0.1 10^3/uL (0.0-0.2); ABSOLUTE EOSINOPHILS # (AUTO) 0.1 10^3/uL (0.0-0.6); ABSOLUTE LYMPHOCYTES (AUTO) 2.1 10^3/uL (0.5-4.7); ABSOLUTE MONOCYTES (AUTO) 0.5 10^3/uL (0.1-1.4); ABSOLUTE NEUT (AUTO) 5.4 10^3/uL (1.7-8.2); BASOPHILS % (AUTO) 1.2 % (0-2); EOSINOPHILS % (AUTO) 1.3 % (0-6); HEMATOCRIT 32.6 % (37.9-51.0); HEMOGLOBIN 10.8 g/dL (13.5-17.0); LYMPHOCYTES % (AUTO) 25.8 % (13-45); MEAN CORPUSCULAR HEMOGLOBIN 27.3 pg (27.0-33.4); MEAN CORPUSCULAR HGB CONC 33.1 g/dL (32.0-36.0); MEAN CORPUSCULAR VOLUME 83 fl (80-97); PLATELET COUNT 460 10^3/uL (150-450); RED BLOOD COUNT 3.95 10^6/uL (4.35-5.55); RED CELL DISTRIBUTION WIDTH 14.4 % (11.5-14.0); SEGMENTED NEUTROPHILS % (AUTO) 65.7 % (42-78); TOTAL CELLS COUNTED % (AUTO) 100 %; WHITE BLOOD COUNT 8.2 10^3/uL (4.0-10.5)
[2018-10-31] MEDS: SODIUM HYPOCHLORITE 0.25% SOLN 473 ML BOTTLE TP SCH ×2 (10:11→17:37)
[2018-10-31 10:16] LABS: ANION GAP 10 (5-19); BLOOD UREA NITROGEN 13 mg/dL (7-20); CARBON DIOXIDE 24 mmol/L (22-30); CHLORIDE 101 mmol/L (98-107); GLUCOSE 142 mg/dL (75-110); POTASSIUM 4.7 mmol/L (3.6-5.0)
[2018-10-31] MEDS ORDERED: PROPOFOL INJ 200 MG/20 ML VIAL IV ONE ×2 (10:51→13:52)
[2018-10-31] MEDS ORDERED: MIDAZOLAM 2 MG/2 ML INJ ONE (10:51)
[2018-10-31] MEDS ORDERED: FENTANYL CITRATE INJ/PF 100 MCG/2 ML AMPUL ONE ×3 (10:51→14:10)
[2018-10-31] MEDS: HYDROCODONE/ACETAMINOPHEN 10-325 MG TABLET PO PRN ×3 (11:21→22:10)
[2018-10-31] MEDS ORDERED: ONDANSETRON HCL INJ/PF 4 MG/2 ML SDV IV PRN (13:07)
[2018-10-31] MEDS ORDERED: MORPHINE SULFATE 10 MG/ML INJ IV PRN (13:07)
[2018-10-31] MEDS ORDERED: DIPHENHYDRAMINE HCL 50 MG/ML VIAL IV PRN (13:07)
[2018-10-31] MEDS ORDERED: MEPERIDINE HCL/PF INJ 25 MG/1 ML DISP.SYRIN IV PRN (13:07)
[2018-10-31] MEDS ORDERED: OXYCODONE-ACETAMINOPHEN 5-325 MG TABLET PO PRN ×2 (13:07)
[2018-10-31] MEDS ORDERED: FENTANYL CITRATE INJ/PF 100 MCG/2 ML AMPUL IV PRN ×2 (13:07)
[2018-10-31] MEDS: PIPERACILLIN SODIUM/TAZOBACTAM 3.375 GM in NORMAL SALINE 100 ML IV SCH ×3 (13:20→23:43)
--- NOTE | 2018-10-31 13:58 | Operative Report ---
Nonrecallable Operative Report DATE OF SURGERY: 10/31/18 PREOPERATIVE DIAGNOSIS: necrotic tissue of perirectal abscess POSTOPERATIVE DIAGNOSIS: same OPERATION: Sharp debridment of necotric tissue ANESTHESIA: IV-Regional TISSUE REMOVED OR ALTERED: necrotic tissue COMPLICATIONS: none ESTIMATED BLOOD LOSS: minimal INTRAOPERATIVE FINDINGS: necrotic tissue PROCEDURE: see dictation
[2018-10-31] MEDS: FENTANYL CITRATE INJ/PF 100 MCG/2 ML AMPUL IV PRN ×2 (14:08→14:29)
--- NOTE | 2018-10-31 14:46 | PDOC PROGRESS REPORT ---
Subjective Progress Note for:: 10/31/18 Subjective:: 10/29/2018 patient went to the OR today where sharp excisional debridement of skin fatty tissue and muscle in the perirectal area was performed. A large cavity full of purulent material was found posteriorly toward the sacrum was drained. Patient is on Diflucan's as well as Zosyn and also nystatin cream 10/30/2018 patient blood pressures are fluctuating ever they are tending to run elevated most of the time increase patient's blood pressure medication. Patient remains afebrile O2 sats 97% on room air. General surgery seeing the patient daily concerning abscess 10/31/2018 patient was admitted to the hospital on the of this month, 7 days ago. At that time he was admitted surgery service for perirectal abscess. It is been found that the patient is hypertensive as well as diabetic ever he was not taking his medications for at least a year. Since admission patient has had debridement x3 patient has been on Zosyn since admission. For his diabetes he is on a sliding scale of insulin and currently metformin thousand milligrams twice daily was started 2 days ago. For his hypertension he currently is taking Cozaar 100 mg daily, Catapres was added today 0.2 mg every 8 hours. He is taking Norvasc 10 mg a day. And he is using Apresoline every 3 hours. On admission his blood pressure was 184/97, in the last 24 hours appears to be trending down slightly Reason For Visit: PERIRECTAL ABSCESS Physical Exam Vital Signs: Temp Pulse Resp BP Pulse Ox 98.5 F 87 12 171/71 H 93 10/31/18 13:44 10/31/18 14:09 10/31/18 14:09 10/31/18 14:09 10/31/18 14:09 Intake & Output 10/30/18 10/31/18 11/01/18 06:59 06:59 06:59 Intake Total 2791 2240 1090 Output Total 3550 3500 Balance -759 -1260 1090 Weight 200.4 kg 194.7 kg General appearance: PRESENT: no acute distress, well-developed, well-nourished Respiratory exam: PRESENT: clear to auscultation gino. ABSENT: rales, rhonchi, wheezes Cardiovascular exam: PRESENT: RRR. ABSENT: diastolic murmur, rubs, systolic murmur Neurological exam: PRESENT: alert, awake, oriented to person, oriented to place, oriented to time, oriented to situation, CN II-XII grossly intact. ABSENT: motor sensory deficit Psychiatric exam: PRESENT: appropriate affect, normal mood. ABSENT: homicidal ideation, suicidal ideation Results Laboratory Results: 10/31/18 09:46 10/31/18 09:46 10/31/18 10/31/18 09:46 09:46 WBC 8.2 RBC 3.95 L Hgb 10.8 L Hct 32.6 L MCV 83 MCH 27.3 MCHC 33.1 RDW 14.4 H Plt Count 460 H Seg Neutrophils % 65.7 Sodium 134.8 L Potassium 4.7 Chloride 101 Carbon Dioxide 24 Anion Gap 10 BUN 13 Creatinine 0.80 Est GFR ( Amer) > 60 Glucose 142 H Calcium 9.0 Impressions: Abdomen/Pelvis CT 10/23/18 21:10 IMPRESSION: Gas-forming infection in the medial buttock bilaterally. Probable abscess formation in the region of the inferior prostate gland and in the region of the base of the penis. Other findings as described. 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 10/27: Blood sugars remain at goal. Recommend restarting him on metformin 1000 mg bid upon discharge as he does say he was on metformin before but stopped taking it. 10/29/2018 patient's hemoglobin A1c is 10 h and his metformin will be increased to thousand twice daily on metformin 10/30/2018 blood sugars running around 140-to 150 patient also being covered on a sliding scale 10/31/2018 metformin thousand milligrams twice daily and his blood sugars are running around 130. (2) Hypertension Qualifiers: Hypertension type: essential hypertension Qualified Code(s): I10 - Essential (primary) hypertension Is this a current diagnosis for this admission?: Yes Plan: 10/25: Blood pressure is not at goal yet. Will increase losartan to 100 mg daily. 10/26: Blood pressures are better after increasing losartan. 10/27: Blood pressures running high on losartan. Will add amlodipine. 10/28: Blood pressures not at goal yet after adding amlodipine yesterday. Continue losartan 100 mg daily. Will increase amlodipine to 10 mg daily. 10/29/2018 amlodipine increased to 10 daily losartan 100 mg daily Catapres was added today as needed 10/30/2018 patient's blood pressure still running high however this is day 2 on the increase of Norvasc, some of this could be related to pain, and patient not having been on medication prior to hospitalization, due to noncompliance 10/31/2018 patient's blood pressures are starting to come down the average of about 170/70 .. (3) Morbid obesity with BMI of 60.0-69.9, adult Is this a current diagnosis for this admission?: Yes Plan: Counseled on weight loss. 10/29/2018 better control of his diabetes and his diet 10/30/2018 patient's weight on admission was 192 kg, patient's weight today is 200 kg, will consult dietary 10/31/2018 weight this morning is 194 kg which is down (4) Perirectal abscess Is this a current diagnosis for this admission?: Yes Plan: He is going for repeat I&D today. Continue Zosyn. Blood culture is growing gram neg rods 1/2. Culture from abscess is poymicrobial. 10/27: He may need further debridement in 2-3 days per surgery. 10/28: Primary service planning to repeat debridement tomorrow. 10/29/2018 event was performed again today by general surgery remains on Zosyn, Diflucan's, nystatin 10/30/2018. Patient is being seen daily by general surgery, continued debridement, continue antibiotics 10/31/2018 patient had a debridement procedure done today by general surgery. White count is down now to 8200 which is a dramatic drop from 21.9 admission - Time Time Spent with patient: 25-34 minutes
--- NOTE | 2018-10-31 15:40 | OPERATIVE REPORT E ---
Operative Report NAME: JESSICA THOMAS : 1985 AGE: 33Y DATE OF SURGERY: 10/31/2018 ROOM: 401 PREOPERATIVE DIAGNOSIS: Status post incision and drainage of large bilateral perirectal abscess. POSTOPERATIVE DIAGNOSIS: Status post incision and drainage of large bilateral perirectal abscess. OPERATION: Sharp debridement down to fat of multiple necrotic areas of left and right perirectal abscess sites. SURGEON: QUAN COLES M.D. SEWER CONNECTOR: None. ANESTHESIA: IV sedation provided by the anesthesiologist. ESTIMATED BLOOD LOSS: Minimal, less than 20 mL. COMPLICATIONS: None. FLUIDS: 1000 mL of crystalloid. URINE OUTPUT: None. DRAINS: None. INDICATION AND FINDINGS: This is a 33-year-old super obese male with a BMI of more than 60 who presented about a week ago complaining of perirectal pain and was found to have large bilateral perirectal abscesses. He has undergone already three debridements to the right and left gluteus. Today, he is postop day #7, 5, and 2. On the physical exam, the right and left buttock rectal abscess areas presented with multiple areas of fat necrosis as well as examination of the left buttock wound reveals the presence of deep area of necrotic tissue which is difficult to debride at bedside. The decision was made to take the patient to surgery today to undergo debridement of the multiple necrotic areas located in the left buttock. DESCRIPTION OF PROCEDURE: The procedure was done in the operating room. The patient was left on the hospital specialty bed. He was placed in a three-quarter position with the left buttock and right buttock exposed. The area was prepped with Betadine and draped in the usual fashion. The large wound located in the left buttock which was near the anus was spread with a Bragg retractor and the deep portion of the wound was examined. A large area of necrotic tissue was identified. This was sharply removed with scissors until good bleeding tissue was obtained. The debridement was then continued throughout the entire wound bed, more superficially, with removal of additional necrotic tissue until good bleeding tissue was obtained. A similar debridement was performed on the right buttock where a small round wound was present. This was debrided with good bleeding obtained. A biopsy of possible lymph tissue was obtained and sent to the lab for aerobic and anaerobic culture and Gram stain. Following this all the wounds were packed with Betadine-soaked Kerlix roll followed by ABDs and tape. The patient tolerated the procedure well and was transferred to the recovery room in satisfactory condition. DICTATING PHYSICIAN: QUAN COLES M.D. [id number] PHY#: [id number] ID: [id number] JOB#: [id number] ACCT: [id number] cc:QUAN COLES M.D. > [facility]
[2018-10-31] MEDS: CLONIDINE HCL 0.2 MG TABLET PO SCH ×2 (16:23→21:07)
[2018-10-31] MEDS ORDERED: ENOXAPARIN SODIUM INJ 40 MG/0.4 ML DISP.SYRIN SUBCUT SCH (22:00)
[2018-11-01] MEDS: PIPERACILLIN SODIUM/TAZOBACTAM 3.375 GM in NORMAL SALINE 100 ML IV SCH ×4 (05:04→23:02)
[2018-11-01] MEDS: CLONIDINE HCL 0.2 MG TABLET PO SCH ×3 (05:04→21:35)
[2018-11-01 07:13] LABS: HEMATOCRIT 30.4 % (37.9-51.0); HEMOGLOBIN 10.2 g/dL (13.5-17.0); MEAN CORPUSCULAR HGB CONC 33.6 g/dL (32.0-36.0); MEAN CORPUSCULAR VOLUME 83 fl (80-97); PLATELET COUNT 418 10^3/uL (150-450); RED BLOOD COUNT 3.65 10^6/uL (4.35-5.55); RED CELL DISTRIBUTION WIDTH 14.7 % (11.5-14.0); WHITE BLOOD COUNT 9.9 10^3/uL (4.0-10.5)
[2018-11-01] MEDS: METFORMIN HCL 500 MG TABLET PO SCH ×2 (07:48→16:21)
[2018-11-01] MEDS: INSULIN LISPRO 100 UNIT/ML 3 ML VIAL SUBCUT SCH ×4 (07:48→22:03)
--- NOTE | 2018-11-01 08:05 | PDOC PROGRESS REPORT ---
Subjective Progress Note for:: 11/01/18 Subjective:: Complains of some pain rectum over the incision site Reason For Visit: PERIRECTAL ABSCESS Physical Exam Vital Signs: Temp Pulse Resp BP Pulse Ox 98.3 F 93 16 158/80 H 97 10/31/18 23:44 10/31/18 23:44 10/31/18 23:44 10/31/18 23:44 11/01/18 00:21 Pulse Oximeter Continuous Start: 10/31/18 23:05 Freq: RTCONT Status: Active Protocol: Document 11/01/18 00:21 CMI (Rec: 11/01/18 00:24 CMI [id number]) Pulse Oximetry Assessment Oxygen Saturation (92-100) 97 Oxygen Delivery Method Room Air Fraction of Inspired Oxygen (FIO2) 21 Equipment Usage Initial Set Up Continuous Pulse Oximeter 24 Hour Charge Charge Now Continuous SpO2 Machine # 1 Intake & Output 10/31/18 11/01/18 11/02/18 06:59 06:59 06:59 Intake Total 2240 2490 Output Total 3500 2560 Balance -1260 -70 Weight 194.7 kg 192.1 kg General appearance: PRESENT: no acute distress Head exam: PRESENT: normocephalic Eye exam: PRESENT: EOMI Ear exam: PRESENT: normal external ear exam Mouth exam: PRESENT: moist Neck exam: PRESENT: full ROM Respiratory exam: PRESENT: clear to auscultation gino Cardiovascular exam: PRESENT: RRR Pulses: PRESENT: normal radial pulses, normal femoral pulses Vascular exam: PRESENT: normal capillary refill GI/Abdominal exam: PRESENT: soft, other - Orbitally obese Rectal exam: PRESENT: other - There is a large perirectal abscess that extends approx 5cm above the anus up onto the left buttock and extends to the base of the scrotum packed with kerlix gauze, upon removal of the gauze the wound is clean, min granulation min necrosis, Gentrourinary exam: PRESENT: indwelling catheter Extremities exam: PRESENT: full ROM Musculoskeletal exam: PRESENT: full ROM Neurological exam: PRESENT: alert, awake, oriented to person, oriented to place Psychiatric exam: PRESENT: appropriate affect Skin exam: PRESENT: dry Results Laboratory Results: 11/01/18 06:42 10/31/18 09:46 08/22/19 08/22/19 08/23/19 09:46 09:46 06:42 WBC 8.2 9.9 RBC 3.95 L 3.65 L Hgb 10.8 L 10.2 L Hct 32.6 L 30.4 L MCV 83 83 MCH 27.3 28.0 MCHC 33.1 33.6 RDW 14.4 H 14.7 H Plt Count 460 H 418 Seg Neutrophils % 65.7 Sodium 134.8 L Potassium 4.7 Chloride 101 Carbon Dioxide 24 Anion Gap 10 BUN 13 Creatinine 0.80 Est GFR ( Amer) > 60 Glucose 142 H Calcium 9.0 Impressions: Abdomen/Pelvis CT 10/23/18 21:10 IMPRESSION: Gas-forming infection in the medial buttock bilaterally. Probable abscess formation in the region of the inferior prostate gland and in the region of the base of the penis. Other findings as described. TECHNICAL DOCUMENTATION: Quality ID # 436: Final reports with documentation of one or more dose reduction techniques (e.g., Automated exposure control, adjustment of the mA and/or kV according to patient size, use of iterative reconstruction technique) copyright 2011 [employer]- All Rights Reserved Assessment & Plan - Plan Summary Plan Summary: Impression is extensive perirectal abscss up on the left buttock extending about 5-6 cm above the rectum and then past the anus to the base of the scrotum wound currently is clean will begin packing with dakins need to consider a colostomy.
[2018-11-01] MEDS: HYDROCHLOROTHIAZIDE 25 MG TABLET PO SCH (09:57)
[2018-11-01] MEDS: LOSARTAN POTASSIUM 50 MG TABLET PO SCH (09:59)
[2018-11-01] MEDS: AMLODIPINE BESYLATE 5 MG TABLET PO SCH (09:59)
[2018-11-01] MEDS: HYDROCODONE/ACETAMINOPHEN 10-325 MG TABLET PO PRN ×2 (09:59→21:36)
[2018-11-01] MEDS: FLUCONAZOLE 200 MG/NS RTU 200 MG/100 ML RTUPB IV SCH (10:07)
[2018-11-01] MEDS: SODIUM HYPOCHLORITE 0.25% SOLN 473 ML BOTTLE TP SCH ×2 (10:14→17:50)
[2018-11-01] MEDS: NYSTATIN CREAM 15 GM TP SCH ×2 (10:15→17:50)
--- NOTE | 2018-11-01 10:22 | PDOC PROGRESS REPORT ---
Subjective Progress Note for:: 11/01/18 Subjective:: 10/29/2018 patient went to the OR today where sharp excisional debridement of skin fatty tissue and muscle in the perirectal area was performed. A large cavity full of purulent material was found posteriorly toward the sacrum was drained. Patient is on Diflucan's as well as Zosyn and also nystatin cream 10/30/2018 patient blood pressures are fluctuating ever they are tending to run elevated most of the time increase patient's blood pressure medication. Patient remains afebrile O2 sats 97% on room air. General surgery seeing the patient daily concerning abscess 10/31/2018 patient was admitted to the hospital on the of this month, 7 days ago. At that time he was admitted surgery service for perirectal abscess. It is been found that the patient is hypertensive as well as diabetic ever he was not taking his medications for at least a year. Since admission patient has had debridement x3 patient has been on Zosyn since admission. For his diabetes he is on a sliding scale of insulin and currently metformin thousand milligrams twice daily was started 2 days ago. For his hypertension he currently is taking Cozaar 100 mg daily, Catapres was added today 0.2 mg every 8 hours. He is taking Norvasc 10 mg a day. And he is using Apresoline every 3 hours. On admission his blood pressure was 184/97, in the last 24 hours appears to be trending down slightly 11/01/2018 patient is being seen on a frequent basis by surgery. Patient continues to have debridements and at this point a colostomy is being considered. From the medical standpoint patient is actually very stable blood pressures now are acceptable with the systolics in the 140 and the diastolics in the 80s. Patient continues to remain afebrile. Serum glucose levels are also in the 140s, although fingersticks vary from 125-200 We will continue with IV antibiotics, day 8 for Zosyn, also continue his medicine as well as metformin. Weight is 192 kg which was his admission weight Reason For Visit: PERIRECTAL ABSCESS Physical Exam Vital Signs: Temp Pulse Resp BP Pulse Ox 98.3 F 93 16 158/80 H 97 10/31/18 23:44 10/31/18 23:44 10/31/18 23:44 10/31/18 23:44 11/01/18 00:21 Pulse Oximeter Continuous Start: 10/31/18 23:05 Freq: RTCONT Status: Active Protocol: Document 11/01/18 00:21 CMI (Rec: 11/01/18 00:24 CMI [email or web address]) Pulse Oximetry Assessment Oxygen Saturation (92-100) 97 Oxygen Delivery Method Room Air Fraction of Inspired Oxygen (FIO2) 21 Equipment Usage Initial Set Up Continuous Pulse Oximeter 24 Hour Charge Charge Now Continuous SpO2 Machine # 1 Intake & Output 10/31/18 11/01/18 11/02/18 06:59 06:59 06:59 Intake Total 2240 2490 Output Total 3500 2560 Balance -1260 -70 Weight 194.7 kg 192.1 kg General appearance: PRESENT: no acute distress, well-developed, well-nourished, other - She is sleeping as a result of recently being bathed and dressing changed Respiratory exam: PRESENT: clear to auscultation gino. ABSENT: rales, rhonchi, wheezes Cardiovascular exam: PRESENT: RRR. ABSENT: diastolic murmur, rubs, systolic murmur Rectal exam: PRESENT: deferred - General surgery Neurological exam: PRESENT: alert, awake, oriented to person, oriented to place, oriented to time, oriented to situation, CN II-XII grossly intact. ABSENT: motor sensory deficit Psychiatric exam: PRESENT: appropriate affect, normal mood. ABSENT: homicidal ideation, suicidal ideation Results Laboratory Results: 11/01/18 06:42 10/31/18 09:46 10/31/18 11/01/18 09:46 06:42 WBC 9.9 RBC 3.65 L Hgb 10.2 L Hct 30.4 L MCV 83 MCH 28.0 MCHC 33.6 RDW 14.7 H Plt Count 418 Sodium 134.8 L Potassium 4.7 Chloride 101 Carbon Dioxide 24 Anion Gap 10 BUN 13 Creatinine 0.80 Est GFR ( Amer) > 60 Glucose 142 H Calcium 9.0 Impressions: Abdomen/Pelvis CT 10/23/18 21:10 IMPRESSION: Gas-forming infection in the medial buttock bilaterally. Probable abscess formation in the region of the inferior prostate gland and in the region of the base of the penis. Other findings as described. 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 10/27: Blood sugars remain at goal. Recommend restarting him on metformin 1000 mg bid upon discharge as he does say he was on metformin before but stopped taking it. 10/29/2018 patient's hemoglobin A1c is 10 h and his metformin will be increased to thousand twice daily on metformin 10/30/2018 blood sugars running around 140-to 150 patient also being covered on a sliding scale 10/31/2018 metformin thousand milligrams twice daily and his blood sugars are running around 130. 10/31/2018 serum glucose yesterday was 142, fingersticks are running from the low 100s to the high 100s patient is being covered on a sliding scale in addition to his metformin (2) Hypertension Qualifiers: Hypertension type: essential hypertension Qualified Code(s): I10 - Essential (primary) hypertension Is this a current diagnosis for this admission?: Yes Plan: 10/25: Blood pressure is not at goal yet. Will increase losartan to 100 mg daily. 10/26: Blood pressures are better after increasing losartan. 10/27: Blood pressures running high on losartan. Will add amlodipine. 10/28: Blood pressures not at goal yet after adding amlodipine yesterday. Continue losartan 100 mg daily. Will increase amlodipine to 10 mg daily. 10/29/2018 amlodipine increased to 10 daily losartan 100 mg daily Catapres was added today as needed 10/30/2018 patient's blood pressure still running high however this is day 2 on the increase of Norvasc, some of this could be related to pain, and patient not having been on medication prior to hospitalization, due to noncompliance 10/31/2018 patient's blood pressures are starting to come down the average of about 170/70 .. 11/01/2018 blood pressures are under good control yesterday systolic averaged around 160 with a diastolic around 80. In light of what patient is going through as well as his infection this is probably about as good as we will get a get for now (3) Morbid obesity with BMI of 60.0-69.9, adult Is this a current diagnosis for this admission?: Yes Plan: Counseled on weight loss. 10/29/2018 better control of his diabetes and his diet 10/30/2018 patient's weight on admission was 192 kg, patient's weight today is 200 kg, will consult dietary 10/31/2018 weight this morning is 194 kg which is down 11/01/2018 patient is maintaining 194 kg (4) Perirectal abscess Is this a current diagnosis for this admission?: Yes Plan: He is going for repeat I&D today. Continue Zosyn. Blood culture is growing gram neg rods 03/13. Culture from abscess is poymicrobial. 10/27: He may need further debridement in 2-3 days per surgery. 10/28: Primary service planning to repeat debridement tomorrow. 10/29/2018 event was performed again today by general surgery remains on Zosyn, Diflucan's, nystatin 10/30/2018. Patient is being seen daily by general surgery, continued debridement, continue antibiotics 10/31/2018 patient had a debridement procedure done today by general surgery. White count is down now to 8200 which is a dramatic drop from 21.9 admission 11/01/2018 patient is being seen on a daily basis by general surgery, consideration now is being given to colostomy, probably secondary to the anatomical location of his abscess - Time Time Spent with patient: 25-34 minutes
[2018-11-01] MEDS: NORMAL SALINE 1000 ML 1,000 ML IV PRN (16:22)
[2018-11-01 18:20] LABS: APPEARANCE,URINE CLEAR; BILIRUBIN,URINE NEGATIVE (NEGATIVE); COLOR,URINE YELLOW; GLUCOSE, URINE NEGATIVE (NEGATIVE); KETONES,URINE NEGATIVE (NEGATIVE); LEUKOCYTE ESTERASE,URINE TRACE (NEGATIVE); NITRITE,URINE NEGATIVE (NEGATIVE); PROTEIN,URINE NEGATIVE (NEGATIVE); UROBILINOGEN,URINE NEGATIVE mg/dL (<2.0)
[2018-11-01] MEDS: LOPERAMIDE HCL 2 MG CAPSULE PO PRN (21:36)
[2018-11-01] MEDS: MORPHINE SULFATE 10 MG/ML INJ IV PRN (22:22)
[2018-11-02] MEDS: NORMAL SALINE 1000 ML 1,000 ML IV PRN ×2 (02:26→15:13)
[2018-11-02] MEDS: PIPERACILLIN SODIUM/TAZOBACTAM 3.375 GM in NORMAL SALINE 100 ML IV SCH ×3 (05:20→18:08)
[2018-11-02] MEDS: CLONIDINE HCL 0.2 MG TABLET PO SCH ×3 (05:21→22:08)
[2018-11-02] MEDS: INSULIN LISPRO 100 UNIT/ML 3 ML VIAL SUBCUT SCH ×4 (09:01→22:14)
[2018-11-02] MEDS: METFORMIN HCL 500 MG TABLET PO SCH (09:33)
[2018-11-02] MEDS ORDERED: DEXTROSE 40% GEL 15 GM TUBE PO PRN ×2 (09:42)
[2018-11-02] MEDS ORDERED: GLUCAGON,HUMAN RECOMB 1 MG INJ SUBCUT PRN (09:42)
[2018-11-02] MEDS ORDERED: DEXTROSE 50%-WATER 25 GM/50 ML DISP.SYRIN IV PRN ×2 (09:42)
--- NOTE | 2018-11-02 10:23 | PDOC PROGRESS REPORT ---
Subjective Progress Note for:: 11/02/18 Subjective:: The patient has no complaints of Reason For Visit: PERIRECTAL ABSCESS Physical Exam Vital Signs: Temp Pulse Resp BP Pulse Ox 97.7 F 62 18 137/58 H 98 11/02/18 05:23 11/02/18 05:23 11/02/18 05:23 11/02/18 05:23 11/02/18 08:00 Pulse Oximeter Continuous Start: 10/31/18 23:05 Freq: RTQ4 Status: Active Protocol: Document 11/02/18 08:00 LDA (Rec: 11/02/18 10:03 LDA [email or web address]) Pulse Oximetry Assessment Oxygen Saturation (92-100) 98 Oxygen Delivery Method Room Air Fraction of Inspired Oxygen (FIO2) 21 Equipment Usage Equipment in Use Continuous SpO2 Machine # [id number] Intake & Output 11/01/18 11/02/18 11/03/18 06:59 06:59 06:59 Intake Total 2590 3298 Output Total 2560 2250 Balance 30 1048 Weight 192.1 kg 192.2 kg General appearance: PRESENT: no acute distress Respiratory exam: PRESENT: clear to auscultation gino Cardiovascular exam: PRESENT: RRR GI/Abdominal exam: PRESENT: soft, other - obese Rectal exam: PRESENT: other - Large surgical defect present in the left buttock near the anus with a secondary surgical defect in the right buttock about 3 inches away from the anus, both edges are granulating with minimal odor and moderate drainage Results Laboratory Results: 11/01/18 06:42 10/31/18 09:46 11/01/18 17:50 Urine Color YELLOW Urine Appearance CLEAR Urine pH 6.0 Ur Specific [place] 1.010 Urine Protein NEGATIVE Urine Glucose (UA) NEGATIVE Urine Ketones NEGATIVE Urine Blood MODERATE H Urine Nitrite NEGATIVE Ur Leukocyte Esterase TRACE H Urine WBC (Auto) 11 Urine RBC (Auto) 16 Impressions: Abdomen/Pelvis CT 10/23/18 21:10 IMPRESSION: Gas-forming infection in the medial buttock bilaterally. Probable abscess formation in the region of the inferior prostate gland and in the region of the base of the penis. Other findings as described. 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 intermodal yard use Diabetes mellitus complication status: with hyperglycemia Qualified Code(s): E11.65 - Type 2 diabetes mellitus with hyperglycemia Is this a current diagnosis for this admission?: Yes (2) Hypertension Qualifiers: Hypertension type: essential hypertension Qualified Code(s): I10 - Essential (primary) hypertension Is this a current diagnosis for this admission?: Yes (3) Perirectal abscess Is this a current diagnosis for this admission?: Yes - Plan Summary Plan Summary: Assessment: Status post multiple incision and drainage and debridement of bilateral perirectal abscess The left buttock surgical defect is very close to the anus with constant contamination of the surgical field with stools The left perianal area has been debrided multiple times because of the continuous stool contamination which prevents healing of the wound This will prevent healing of the area and potentially would promote recurrence of additional perianal wound infections which may have a catastrophic results in these morbid obese patient Plan: After long discussion with the patient, plan is to perform either an ileostomy or an end colostomy tomorrow laparoscopically possible open Procedure, risk, benefits, and complication including the possibility of bowel ischemia and necrosis following the procedure and/or retraction of the ostomy because of his large body habitus have been explained to the patient he understands, he has questions were answered, and the decides to proceed. In addition, the possibility of pneumonia, postoperative pulmonary embolus, DVT, prolonged intubation and or have been discussed with the patient, he fully understands all the above as well and decides to proceed. The patient will undergo Gomez bowel prep with GoLYTELY and oral antibiotics (neomycin and metronidazole) Dulcolax 50 mg p.o. during the bowel prep N.p.o. after midnight IV fluids Check electrolytes today and tomorrow
[2018-11-02 11:06] LABS: ANION GAP 9 (5-19); BLOOD UREA NITROGEN 11 mg/dL (7-20); CALCIUM 8.9 mg/dL (8.4-10.2); CARBON DIOXIDE 27 mmol/L (22-30); CHLORIDE 99 mmol/L (98-107); GLUCOSE 186 mg/dL (75-110); POTASSIUM 4.3 mmol/L (3.6-5.0)
[2018-11-02] MEDS: HYDROCODONE/ACETAMINOPHEN 10-325 MG TABLET PO PRN (11:39)
[2018-11-02] MEDS: HYDROCHLOROTHIAZIDE 25 MG TABLET PO SCH (11:39)
[2018-11-02] MEDS: AMLODIPINE BESYLATE 5 MG TABLET PO SCH (11:40)
[2018-11-02] MEDS: LOSARTAN POTASSIUM 50 MG TABLET PO SCH (11:40)
[2018-11-02] MEDS: SODIUM HYPOCHLORITE 0.25% SOLN 473 ML BOTTLE TP SCH (11:42)
[2018-11-02] MEDS: NYSTATIN CREAM 15 GM TP SCH (11:43)
[2018-11-02] MEDS: FLUCONAZOLE 200 MG/NS RTU 200 MG/100 ML RTUPB IV SCH (12:48)
[2018-11-02 13:04] LABS: ABSOLUTE EOSINOPHILS # (AUTO) 0.1 10^3/uL (0.0-0.6); ABSOLUTE MONOCYTES (AUTO) 0.4 10^3/uL (0.1-1.4); EOSINOPHILS % (AUTO) 1.9 % (0-6); HEMOGLOBIN 9.9 g/dL (13.5-17.0); TOTAL CELLS COUNTED % (AUTO) 100 %
--- NOTE | 2018-11-02 13:05 | PDOC PROGRESS REPORT ---
Subjective Progress Note for:: 11/02/18 Subjective:: 10/29/2018 patient went to the OR today where sharp excisional debridement of skin fatty tissue and muscle in the perirectal area was performed. A large cavity full of purulent material was found posteriorly toward the sacrum was drained. Patient is on Diflucan's as well as Zosyn and also nystatin cream 10/30/2018 patient blood pressures are fluctuating ever they are tending to run elevated most of the time increase patient's blood pressure medication. Patient remains afebrile O2 sats 97% on room air. General surgery seeing the patient daily concerning abscess 10/31/2018 patient was admitted to the hospital on the of this month, 7 days ago. At that time he was admitted surgery service for perirectal abscess. It is been found that the patient is hypertensive as well as diabetic ever he was not taking his medications for at least a year. Since admission patient has had debridement x3 patient has been on Zosyn since admission. For his diabetes he is on a sliding scale of insulin and currently metformin thousand milligrams twice daily was started 2 days ago. For his hypertension he currently is taking Cozaar 100 mg daily, Catapres was added today 0.2 mg every 8 hours. He is taking Norvasc 10 mg a day. And he is using Apresoline every 3 hours. On admission his blood pressure was 184/97, in the last 24 hours appears to be trending down slightly 11/01/2018 patient is being seen on a frequent basis by surgery. Patient continues to have debridements and at this point a colostomy is being considered. From the medical standpoint patient is actually very stable blood pressures now are acceptable with the systolics in the 140 and the diastolics in the 80s. Patient continues to remain afebrile. Serum glucose levels are also in the 140s, although fingersticks vary from 125-200 We will continue with IV antibiotics, day 8 for Zosyn, also continue his medicine as well as metformin. Weight is 192 kg which was his admission weight 11/02/2018 and is scheduled for surgery tomorrow. Surgery has gone over all the risk and complications as well as the procedure either ileostomy or colostomy. Will DC metformin today and treat just with sliding scale, labs to be checked today as well. Patient is ready to have the surgery done. Day 9 of Zosyn, patient appears medically stable Reason For Visit: PERIRECTAL ABSCESS Physical Exam Vital Signs: Temp Pulse Resp BP Pulse Ox 97.5 F 52 L 15 150/49 H 97 11/02/18 11:02 11/02/18 11:02 11/02/18 10:00 11/02/18 11:02 11/02/18 11:13 Pulse Oximeter Continuous Start: 10/31/18 23:05 Freq: RTQ4 Status: Active Protocol: Document 11/02/18 11:13 LDA (Rec: 11/02/18 11:13 LDA [email or web address]) Pulse Oximetry Assessment Oxygen Saturation (92-100) 97 Oxygen Delivery Method Room Air Fraction of Inspired Oxygen (FIO2) 21 Equipment Usage Equipment in Use Continuous SpO2 Machine # [id number] Intake & Output 11/01/18 11/02/18 11/03/18 06:59 06:59 06:59 Intake Total 2590 3398 Output Total 2560 2250 Balance 30 1148 Weight 192.1 kg 192.2 kg General appearance: PRESENT: no acute distress Head exam: PRESENT: atraumatic, normocephalic Respiratory exam: PRESENT: clear to auscultation gino. ABSENT: rales, rhonchi, wheezes Cardiovascular exam: PRESENT: RRR. ABSENT: diastolic murmur, rubs, systolic murmur GI/Abdominal exam: PRESENT: soft, other - Orbitally obese Neurological exam: PRESENT: alert, awake, oriented to person, oriented to place, oriented to time, oriented to situation, CN II-XII grossly intact. ABSENT: motor sensory deficit Psychiatric exam: PRESENT: appropriate affect, normal mood, other - Competent to make decisions. ABSENT: homicidal ideation, suicidal ideation Results Laboratory Results: 11/01/18 06:42 11/02/18 10:42 11/01/18 11/02/18 17:50 10:42 Sodium 135.2 L Potassium 4.3 Chloride 99 Carbon Dioxide 27 Anion Gap 9 BUN 11 Creatinine 0.85 Est GFR ( Amer) > 60 Glucose 186 H Calcium 8.9 Urine Color YELLOW Urine Appearance CLEAR Urine pH 6.0 Ur Specific [place] 1.010 Urine Protein NEGATIVE Urine Glucose (UA) NEGATIVE Urine Ketones NEGATIVE Urine Blood MODERATE H Urine Nitrite NEGATIVE Ur Leukocyte Esterase TRACE H Urine WBC (Auto) 11 Urine RBC (Auto) 16 Impressions: Abdomen/Pelvis CT 10/23/18 21:10 IMPRESSION: Gas-forming infection in the medial buttock bilaterally. Probable abscess formation in the region of the inferior prostate gland and in the region of the base of the penis. Other findings as described. TECHNICAL DOCUMENTATION: Quality ID # 436: Final reports with documentation of one or more dose reduction techniques (e.g., Automated exposure control, adjustment of the mA and/or kV according to patient size, use of iterative reconstruction technique) copyright 2011 [employer]- All Rights Reserved Assessment and Plan - Diagnosis (1) Diabetes mellitus Qualifiers: Diabetes mellitus type: type 2 Diabetes mellitus detention insulin use: without detention use Diabetes mellitus complication status: with hyperglycemia Qualified Code(s): E11.65 - Type 2 diabetes mellitus with hyperglycemia Is this a current diagnosis for this admission?: Yes Plan: Hba1c came back at 10. 10/27: Blood sugars remain at goal. Recommend restarting him on metformin 1000 mg bid upon discharge as he does say he was on metformin before but stopped taking it. 10/29/2018 patient's hemoglobin A1c is 10 h and his metformin will be increased to thousand twice daily on metformin 10/30/2018 blood sugars running around 140-to 150 patient also being covered on a sliding scale 10/31/2018 metformin thousand milligrams twice daily and his blood sugars are running around 130. 10/31/2018 serum glucose yesterday was 142, fingersticks are running from the low 100s to the high 100s patient is being covered on a sliding scale in addition to his metformin 11/02/2018 most recent serum glucose today was 186, fingerstick glucoses are running anywhere from 123 up to 208. Patient's metformin will be DC'd today in preparation for surgery tomorrow and he will be covered with sliding scale of insulin (2) Hypertension Qualifiers: Hypertension type: essential hypertension Qualified Code(s): I10 - Essential (primary) hypertension Is this a current diagnosis for this admission?: Yes Plan: 10/25: Blood pressure is not at goal yet. Will increase losartan to 100 mg daily. 10/26: Blood pressures are better after increasing losartan. 10/27: Blood pressures running high on losartan. Will add amlodipine. 10/28: Blood pressures not at goal yet after adding amlodipine yesterday. Continue losartan 100 mg daily. Will increase amlodipine to 10 mg daily. 10/29/2018 amlodipine increased to 10 daily losartan 100 mg daily Catapres was added today as needed 10/30/2018 patient's blood pressure still running high however this is day 2 on the increase of Norvasc, some of this could be related to pain, and patient not having been on medication prior to hospitalization, due to noncompliance 10/31/2018 patient's blood pressures are starting to come down the average of about 170/70 .. 11/01/2018 blood pressures are under good control yesterday systolic averaged around 160 with a diastolic around 80. In light of what patient is going through as well as his infection this is probably about as good as we will get a get for now 11/02/2018 blood pressures appear stable but will not try to adjust them the day before surgery (3) Morbid obesity with BMI of 60.0-69.9, adult Is this a current diagnosis for this admission?: Yes Plan: Counseled on weight loss. 10/29/2018 better control of his diabetes and his diet 10/30/2018 patient's weight on admission was 192 kg, patient's weight today is 200 kg, will consult dietary 10/31/2018 weight this morning is 194 kg which is down 11/01/2018 patient is maintaining 194 kg. 11/02/2018 weight today is 192 kg (4) Perirectal abscess Is this a current diagnosis for this admission?: Yes Plan: He is going for repeat I&D today. Continue Zosyn. Blood culture is growing gram neg rods 1/2. Culture from abscess is poymicrobial. 10/27: He may need further debridement in 2-3 days per surgery. 10/28: Primary service planning to repeat debridement tomorrow. 10/29/2018 event was performed again today by general surgery remains on Zosyn, Diflucan's, nystatin 10/30/2018. Patient is being seen daily by general surgery, continued debridement, continue antibiotics 10/31/2018 patient had a debridement procedure done today by general surgery. White count is down now to 8200 which is a dramatic drop from 21.9 admission 11/01/2018 patient is being seen on a daily basis by general surgery, consideration now is being given to colostomy, probably secondary to the anatomical location of his abscess 11/02/2018 she will have surgery tomorrow either ileostomy or colostomy based on surgical opinion. Patient is in agreement for the surgery. Patient has had multiple debridements performed prior to the surgery tomorrow agraffe on admission white count was 21,900 most recent is 9.9 from yesterday - Time Time Spent with patient: 25-34 minutes
[2018-11-02 13:08] LABS: ABSOLUTE LYMPHOCYTES (AUTO) 1.9 10^3/uL (0.5-4.7); ABSOLUTE NEUT (AUTO) 4.4 10^3/uL (1.7-8.2); BASOPHILS % (AUTO) 0.7 % (0-2); HEMATOCRIT 30.2 % (37.9-51.0); LYMPHOCYTES % (AUTO) 27.6 % (13-45); MEAN CORPUSCULAR HEMOGLOBIN 27.4 pg (27.0-33.4); MEAN CORPUSCULAR HGB CONC 32.9 g/dL (32.0-36.0); MEAN CORPUSCULAR VOLUME 83 fl (80-97); MONOCYTES % (AUTO) 6.1 % (3-13); PLATELET COUNT 333 10^3/uL (150-450); RED BLOOD COUNT 3.63 10^6/uL (4.35-5.55); RED CELL DISTRIBUTION WIDTH 14.2 % (11.5-14.0); SEGMENTED NEUTROPHILS % (AUTO) 63.7 % (42-78); WHITE BLOOD COUNT 6.9 10^3/uL (4.0-10.5)
[2018-11-02 14:23] LABS: ANION GAP 9 (5-19); BLOOD UREA NITROGEN 11 mg/dL (7-20); CALCIUM 8.9 mg/dL (8.4-10.2); CARBON DIOXIDE 27 mmol/L (22-30); CHLORIDE 100 mmol/L (98-107); GLUCOSE 154 mg/dL (75-110); POTASSIUM 4.3 mmol/L (3.6-5.0)
[2018-11-02] MEDS ORDERED: BISACODYL 5 MG TABEC PO ONE (15:00)
[2018-11-02] MEDS ORDERED: METRONIDAZOLE 500 MG TABLET PO SCH (15:00)
[2018-11-02] MEDS ORDERED: NEOMYCIN SULFATE 500 MG TABLET PO ONE (15:00)
[2018-11-02] MEDS ORDERED: PEG 3350/NA SULF,BICARB,CL/KCL 4000 ML PO ONE (15:00)
[2018-11-02] MEDS: METRONIDAZOLE 500 MG TABLET PO SCH ×3 (15:56→22:06)
[2018-11-03] MEDS: PIPERACILLIN SODIUM/TAZOBACTAM 3.375 GM in NORMAL SALINE 100 ML IV SCH ×4 (02:54→17:50)
[2018-11-03] MEDS: NORMAL SALINE 1000 ML 1,000 ML IV PRN ×3 (02:55→22:15)
[2018-11-03 04:38] LABS: ABSOLUTE BASOPHILS # (AUTO) 0.1 10^3/uL (0.0-0.2); ABSOLUTE EOSINOPHILS # (AUTO) 0.1 10^3/uL (0.0-0.6); ABSOLUTE LYMPHOCYTES (AUTO) 2.4 10^3/uL (0.5-4.7); ABSOLUTE MONOCYTES (AUTO) 0.7 10^3/uL (0.1-1.4); ABSOLUTE NEUT (AUTO) 6.8 10^3/uL (1.7-8.2); BASOPHILS % (AUTO) 0.6 % (0-2); HEMATOCRIT 28.5 % (37.9-51.0); HEMOGLOBIN 9.8 g/dL (13.5-17.0); LYMPHOCYTES % (AUTO) 23.5 % (13-45); MEAN CORPUSCULAR HEMOGLOBIN 28.3 pg (27.0-33.4); MEAN CORPUSCULAR HGB CONC 34.4 g/dL (32.0-36.0); MEAN CORPUSCULAR VOLUME 82 fl (80-97); MONOCYTES % (AUTO) 6.8 % (3-13); PLATELET COUNT 333 10^3/uL (150-450); RED BLOOD COUNT 3.47 10^6/uL (4.35-5.55); RED CELL DISTRIBUTION WIDTH 14.3 % (11.5-14.0); SEGMENTED NEUTROPHILS % (AUTO) 68.1 % (42-78); TOTAL CELLS COUNTED % (AUTO) 100 %
[2018-11-03 05:01] LABS: ANION GAP 12 (5-19); BLOOD UREA NITROGEN 11 mg/dL (7-20); CALCIUM 8.8 mg/dL (8.4-10.2); CARBON DIOXIDE 25 mmol/L (22-30); CHLORIDE 100 mmol/L (98-107); GLUCOSE 144 mg/dL (75-110); POTASSIUM 4.3 mmol/L (3.6-5.0)
[2018-11-03] MEDS: CLONIDINE HCL 0.2 MG TABLET PO SCH ×3 (07:30→22:13)
[2018-11-03] MEDS ORDERED: PROPOFOL INJ 200 MG/20 ML VIAL IV ONE (07:42)
[2018-11-03] MEDS ORDERED: FENTANYL CITRATE INJ/PF 100 MCG/2 ML AMPUL ONE (07:42)
[2018-11-03] MEDS ORDERED: MORPHINE SULFATE 10 MG/ML INJ ONE ×2 (07:42→10:50)
[2018-11-03] MEDS ORDERED: MIDAZOLAM 2 MG/2 ML INJ ONE (07:42)
[2018-11-03] MEDS ORDERED: BUPIVACAINE HCL 0.5%-EPI 1:200000 INJ/PF 30 ML VIAL ONE (08:22)
[2018-11-03] MEDS: SODIUM HYPOCHLORITE 0.25% SOLN 473 ML BOTTLE TP SCH ×3 (08:35→17:51)
[2018-11-03] MEDS: NYSTATIN CREAM 15 GM TP SCH ×2 (08:35→10:56)
[2018-11-03] MEDS: INSULIN LISPRO 100 UNIT/ML 3 ML VIAL SUBCUT SCH ×4 (08:36→22:03)
[2018-11-03] MEDS ORDERED: DIPHENHYDRAMINE HCL 50 MG/ML VIAL IV PRN (09:25)
[2018-11-03] MEDS ORDERED: FENTANYL CITRATE INJ/PF 100 MCG/2 ML AMPUL IV PRN ×3 (09:25)
[2018-11-03] MEDS ORDERED: PROMETHAZINE HCL INJ 25 MG/1 ML VIAL IV PRN ×2 (09:25)
[2018-11-03] MEDS ORDERED: MORPHINE SULFATE 10 MG/ML INJ IV PRN ×2 (09:25→10:15)
[2018-11-03] MEDS ORDERED: MEPERIDINE HCL/PF INJ 25 MG/1 ML DISP.SYRIN IV PRN (09:25)
[2018-11-03] MEDS ORDERED: ONDANSETRON HCL INJ/PF 4 MG/2 ML SDV IV PRN (10:15)
[2018-11-03] MEDS: HYDROCHLOROTHIAZIDE 25 MG TABLET PO SCH (10:56)
[2018-11-03] MEDS: FLUCONAZOLE 200 MG/NS RTU 200 MG/100 ML RTUPB IV SCH (10:56)
[2018-11-03] MEDS: LOSARTAN POTASSIUM 50 MG TABLET PO SCH ×2 (10:56→13:03)
[2018-11-03] MEDS: AMLODIPINE BESYLATE 5 MG TABLET PO SCH (10:56)
--- NOTE | 2018-11-03 11:20 | Operative Report ---
Nonrecallable Operative Report DATE OF SURGERY: 11/03/18 PREOPERATIVE DIAGNOSIS: Morbid obesity, perirectal abscess POSTOPERATIVE DIAGNOSIS: Morbid obesity, perirectal abscess OPERATION: Laparoscopic transverse loop colostomy SURGEON: KATINA JIM 1ST BOATHOUSE KEEPER: QUAN COLES ANESTHESIA: GA TISSUE REMOVED OR ALTERED: None COMPLICATIONS: None ESTIMATED BLOOD LOSS: 10 cc INTRAOPERATIVE FINDINGS: Hepatic cirrhosis PROCEDURE: Indications for procedure; Mr. Crump is a 33-year-old morbidly obese male who presented number of days ago for a large perirectal abscess he is undergone at least 2 procedures for incision drainage and debridement of the perirectal absc ess is noted to be perianal and complicated by the fact that he continues to stool through the wound he is therefore being scheduled for this procedure. Patient was brought to the operating room and awake and alert in stable condition placed the operative table supine position induced under general anesthesia intubated his abdomen was prepped and draped in usual sterile manner for the procedure. After appropriate timeout a varies needle was placed into the umbilicus and the abdomen was insufflated with 6 L of CO2 gas an infraumbilical 10 mm incision was made with a 10 blade and a 10 mm port placed in the abdominal cavity intra- abdominal visualization revealed no evidence of Veress needle or trocar injury visualization of his liver revealed diffuse hepatic cirrhosis moderate. The amount of omentum was then lifted up out of the pelvis and retracted antecolic to the rest in the upper abdomen we identified the transverse colon. I then began dividing the omentum off the transverse colon to mobilize it somewhat to allow for a transverse loop colostomy. This was done with the LigaSure device we cleared the entire length of the transverse colon of the omentum which allowed good mobilization of the transverse colon. We then picked a point on the left anterior abdominal wall for the colostomy. The pneumoperitoneum was then reduced and a skin defect was created in the left upper quadrant for the colostomy dissection was carried down through subcutaneous tissue we removed a section of fatty tissue on top of the rectus muscle and then carried our dissection down to the rectus fascia. The anterior sheath was then opened transversely and the rectus muscle was divided somewhat with Bovie cautery to the we reached the posterior sheath which was opened also. The mid transverse colon was then brought through the wound. Using a 22 Prydeinig rubber catheter as a bridge a small defect was made in the transverse colon mesentery and the bridge was passed through it. The pneumoperitoneum was then completely reduced and the ports were removed. The stoma was then matured to the abdominal skin with interrupted placed 3-0 Vicryl sutures. The red rubber Rogel catheter was also fixed to the anterior abdominal skin with 2-0 nylon. A sterile colostomy appliance was placed over it. The laparoscopic skin incisions were then closed with standard skin clips. Estimated blood loss for the procedure was less than 25 cc sponge needle counts were correct x2 the patient was awakened in the operating room extubated and transferred recovery in stable condition
[2018-11-03] MEDS: HEPARIN SOD (PORCINE) 5,000 UNIT/ML 1 ML VIAL SUBCUT SCH ×2 (14:44→22:04)
[2018-11-03] MEDS ORDERED: NEOSTIGMINE METHYLSULFATE 10 MG/10 ML VIAL ONE (16:03)
[2018-11-03] MEDS ORDERED: SUCCINYLCHOLINE CHLORIDE INJ 200 MG/10 ML VIAL ONE (16:03)
[2018-11-03] MEDS ORDERED: ROCURONIUM BROMIDE INJ 50 MG/5 ML VIAL IV ONE (16:03)
[2018-11-03] MEDS ORDERED: GLYCOPYRROLATE 1 MG/5 ML VIAL ONE (16:03)
[2018-11-03] MEDS: HYDROCODONE/ACETAMINOPHEN 10-325 MG TABLET PO PRN ×2 (17:49→22:18)
[2018-11-03] MEDS ORDERED: SODIUM HYPOCHLORITE 0.25% SOLN 473 ML BOTTLE ONE (20:57)
[2018-11-03] MEDS: FAMOTIDINE INJ/PF 20 MG/2 ML SDV IV SCH (22:13)
[2018-11-03] MEDS: MORPHINE SULFATE 10 MG/ML INJ IV PRN (22:30)
[2018-11-04] MEDS: PIPERACILLIN SODIUM/TAZOBACTAM 3.375 GM in NORMAL SALINE 100 ML IV SCH ×4 (00:49→20:56)
[2018-11-04 05:56] LABS: HEMATOCRIT 28.9 % (37.9-51.0); HEMOGLOBIN 9.6 g/dL (13.5-17.0); MEAN CORPUSCULAR HEMOGLOBIN 27.7 pg (27.0-33.4); MEAN CORPUSCULAR HGB CONC 33.2 g/dL (32.0-36.0); MEAN CORPUSCULAR VOLUME 83 fl (80-97); PLATELET COUNT 313 10^3/uL (150-450); RED BLOOD COUNT 3.46 10^6/uL (4.35-5.55); RED CELL DISTRIBUTION WIDTH 14.5 % (11.5-14.0)
[2018-11-04 06:17] LABS: ANION GAP 10 (5-19); BLOOD UREA NITROGEN 9 mg/dL (7-20); CALCIUM 8.4 mg/dL (8.4-10.2); CARBON DIOXIDE 25 mmol/L (22-30); CHLORIDE 101 mmol/L (98-107); GLUCOSE 142 mg/dL (75-110); POTASSIUM 4.2 mmol/L (3.6-5.0)
[2018-11-04] MEDS: HEPARIN SOD (PORCINE) 5,000 UNIT/ML 1 ML VIAL SUBCUT SCH ×3 (06:44→22:50)
[2018-11-04] MEDS: MORPHINE SULFATE 10 MG/ML INJ IV PRN ×3 (06:49→22:51)
[2018-11-04] MEDS: CLONIDINE HCL 0.2 MG TABLET PO SCH (06:58)
[2018-11-04] MEDS: INSULIN LISPRO 100 UNIT/ML 3 ML VIAL SUBCUT SCH ×4 (07:43→22:50)
[2018-11-04] MEDS: AMLODIPINE BESYLATE 5 MG TABLET PO SCH (09:57)
[2018-11-04] MEDS: HYDROCHLOROTHIAZIDE 25 MG TABLET PO SCH (09:57)
[2018-11-04] MEDS: FAMOTIDINE INJ/PF 20 MG/2 ML SDV IV SCH ×2 (09:58→22:51)
[2018-11-04] MEDS: LOSARTAN POTASSIUM 50 MG TABLET PO SCH (09:58)
--- NOTE | 2018-11-04 10:10 | PDOC PROGRESS REPORT ---
Subjective Progress Note for:: 11/04/18 Subjective:: 10/29/2018 patient went to the OR today where sharp excisional debridement of skin fatty tissue and muscle in the perirectal area was performed. A large cavity full of purulent material was found posteriorly toward the sacrum was drained. Patient is on Diflucan's as well as Zosyn and also nystatin cream 10/30/2018 patient blood pressures are fluctuating ever they are tending to run elevated most of the time increase patient's blood pressure medication. Patient remains afebrile O2 sats 97% on room air. General surgery seeing the patient daily concerning abscess 10/31/2018 patient was admitted to the hospital on the of this month, 7 days ago. At that time he was admitted surgery service for perirectal abscess. It is been found that the patient is hypertensive as well as diabetic ever he was not taking his medications for at least a year. Since admission patient has had debridement x3 patient has been on Zosyn since admission. For his diabetes he is on a sliding scale of insulin and currently metformin thousand milligrams twice daily was started 2 days ago. For his hypertension he currently is taking Cozaar 100 mg daily, Catapres was added today 0.2 mg every 8 hours. He is taking Norvasc 10 mg a day. And he is using Apresoline every 3 hours. On admission his blood pressure was 184/97, in the last 24 hours appears to be trending down slightly 11/01/2018 patient is being seen on a frequent basis by surgery. Patient continues to have debridements and at this point a colostomy is being considered. From the medical standpoint patient is actually very stable blood pressures now are acceptable with the systolics in the 140 and the diastolics in the 80s. Patient continues to remain afebrile. Serum glucose levels are also in the 140s, although fingersticks vary from 125-200 We will continue with IV antibiotics, day 8 for Zosyn, also continue his medicine as well as metformin. Weight is 192 kg which was his admission weight 11/02/2018 and is scheduled for surgery tomorrow. Surgery has gone over all the risk and complications as well as the procedure either ileostomy or colostomy. Will DC metformin today and treat just with sliding scale, labs to be checked today as well. Patient is ready to have the surgery done. Day 9 of Zosyn, patient appears medically stable. 11/03/2018 he is going down today to the OR for surgery. Patient had all of his questions answered will follow medically after surgery 11/04/2018 patient had surgery yesterday and underwent a colostomy. Patient tolerated procedure well and is doing well today vital signs are stable he is afebrile 98 3 pulse 52 blood pressure 154/79, sats are 99% on room air. Pain is well controlled. Patient's white count remains normal 8000 H&H 9.6 28.9. Serum glucose today is stable at 142, fingersticks are running about the same, will resume metformin thousand milligrams twice daily today. We will defer diet and discharge date to general surgery Reason For Visit: PERIRECTAL ABSCESS Physical Exam Vital Signs: Temp Pulse Resp BP Pulse Ox 98.3 F 52 L 16 154/79 H 99 11/04/18 08:16 11/04/18 08:16 11/04/18 08:16 11/04/18 08:16 11/04/18 08:16 Pulse Oximeter Continuous Start: 10/31/18 23:05 Freq: RTQ4 Status: Active Protocol: Document 11/04/18 04:15 CMI (Rec: 11/04/18 04:18 CMI [id number]) Pulse Oximetry Assessment Oxygen Saturation (92-100) 99 Oxygen Flow Rate (L/min) 2 Oxygen Delivery Method Nasal Cannula Fraction of Inspired Oxygen (FIO2) 28 Equipment Usage Equipment in Use Continuous Pulse Oximeter 24 Hour Charge Charge Now Continuous SpO2 Machine # 1 Intake & Output 11/03/18 11/04/18 11/05/18 06:59 06:59 06:59 Intake Total 4174 3120 Output Total 4900 2460 Balance -726 660 Weight 191.5 kg General appearance: PRESENT: no acute distress Respiratory exam: PRESENT: clear to auscultation gino. ABSENT: rales, rhonchi, wheezes Cardiovascular exam: PRESENT: RRR. ABSENT: diastolic murmur, rubs, systolic murmur GI/Abdominal exam: PRESENT: other - Defer to surgery for wound care Psychiatric exam: PRESENT: appropriate affect, normal mood, other - We discussed pain management and he understands to use pain medicine as needed. ABSENT: cristal icidal ideation, suicidal ideation Results Laboratory Results: 11/04/18 05:19 11/04/18 05:19 11/04/18 11/04/18 05:19 05:19 WBC 8.0 RBC 3.46 L Hgb 9.6 L Hct 28.9 L MCV 83 MCH 27.7 MCHC 33.2 RDW 14.5 H Plt Count 313 Sodium 135.9 L Potassium 4.2 Chloride 101 Carbon Dioxide 25 Anion Gap 10 BUN 9 Creatinine 0.83 Est GFR ( Amer) > 60 Glucose 142 H Calcium 8.4 Impressions: Abdomen/Pelvis CT 10/23/18 21:10 IMPRESSION: Gas-forming infection in the medial buttock bilaterally. Probable abscess formation in the region of the inferior prostate gland and in the region of the base of the penis. Other findings as described. TECHNICAL DOCUMENTATION: Quality ID # 436: Final reports with documentation of one or more dose reduction techniques (e.g., Automated exposure control, adjustment of the mA and/or kV according to patient size, use of iterative reconstruction technique) copyright 2011 [employer]- All Rights Reserved Assessment and Plan - Diagnosis (1) Diabetes mellitus Qualifiers: Diabetes mellitus type: type 2 Diabetes mellitus tank terminal gauger insulin use: without mcc use Diabetes mellitus complication status: with hyperglycemia Qualified Code(s): E11.65 - Type 2 diabetes mellitus with hyperglycemia Is this a current diagnosis for this admission?: Yes Plan: Hba1c came back at 10. 10/27: Blood sugars remain at goal. Recommend restarting him on metformin 1000 mg bid upon discharge as he does say he was on metformin before but stopped taking it. 10/29/2018 patient's hemoglobin A1c is 10 h and his metformin will be increased to thousand twice daily on metformin 10/30/2018 blood sugars running around 140-to 150 patient also being covered on a sliding scale 10/31/2018 metformin thousand milligrams twice daily and his blood sugars are running around 130. 10/31/2018 serum glucose yesterday was 142, fingersticks are running from the low 100s to the high 100s patient is being covered on a sliding scale in addition to his metformin 11/02/2018 most recent serum glucose today was 186, fingerstick glucoses are running anywhere from 123 up to 208. Patient's metformin will be DC'd today in preparation for surgery tomorrow and he will be covered with sliding scale of insulin. 11/03/2018 patient underwent surgery today for colostomy sugars are well controlled on sliding scale of insulin 11/04/2018 serum glucose is running around 150 as well as fingersticks. Will resume metformin thousand milligrams twice daily today (2) Hypertension Qualifiers: Hypertension type: essential hypertension Qualified Code(s): I10 - Essential (primary) hypertension Is this a current diagnosis for this admission?: Yes Plan: 10/25: Blood pressure is not at goal yet. Will increase losartan to 100 mg daily. 10/26: Blood pressures are better after increasing losartan. 10/27: Blood pressures running high on losartan. Will add amlodipine. 10/28: Blood pressures not at goal yet after adding amlodipine yesterday. Continue losartan 100 mg daily. Will increase amlodipine to 10 mg daily. 10/29/2018 amlodipine increased to 10 daily losartan 100 mg daily Catapres was added today as needed 10/30/2018 patient's blood pressure still running high however this is day 2 on the increase of Norvasc, some of this could be related to pain, and patient not having been on medication prior to hospitalization, due to noncompliance 10/31/2018 patient's blood pressures are starting to come down the average of about 170/70 .. 11/01/2018 blood pressures are under good control yesterday systolic averaged around 160 with a diastolic around 80. In light of what patient is going through as well as his infection this is probably about as good as we will get a get for now 11/02/2018 blood pressures appear stable but will not try to adjust them the day before surgery 11/03/2018 blood pressures today are slightly elevated in the 170s over 70 this may be due in anticipation for surgery and anxiety. Will cover with as needed 11/04/2018 blood pressures are much more controlled and at his baseline 140/80 and 154/79. Catapres 0.2 every 8 hours we will increase this to 0.3 they need to switch to a TTS patch (3) Morbid obesity with BMI of 60.0-69.9, adult Is this a current diagnosis for this admission?: Yes Plan: Counseled on weight loss. 10/29/2018 better control of his diabetes and his diet 10/30/2018 patient's weight on admission was 192 kg, patient's weight today is 200 kg, will consult dietary 10/31/2018 weight this morning is 194 kg which is down 11/01/2018 patient is maintaining 194 kg. 11/02/2018 weight today is 192 kg 11/03/2018 weight remains stable 11/04/2018 today is postop day 1 from colostomy, weight is 191.5 (4) Perirectal abscess Is this a current diagnosis for this admission?: Yes Plan: He is going for repeat I&D today. Continue Zosyn. Blood culture is growing gram neg rods 03/13. Culture from abscess is po ymicrobial. 10/27: He may need further debridement in 2-3 days per surgery. 10/28: Primary service planning to repeat debridement tomorrow. 10/29/2018 event was performed again today by general surgery remains on Zosyn, Diflucan's, nystatin 10/30/2018. Patient is being seen daily by general surgery, continued debridement, continue antibiotics 10/31/2018 patient had a debridement procedure done today by general surgery. White count is down now to 8200 which is a dramatic drop from 21.9 admission 11/01/2018 patient is being seen on a daily basis by general surgery, con sideration now is being given to colostomy, probably secondary to the anatomical location of his abscess 11/02/2018 she will have surgery tomorrow either ileostomy or colostomy based on surgical opinion. Patient is in agreement for the surgery. Patient has had multiple debridements performed prior to the surgery tomorrow agraffe on admission white count was 21,900 most recent is 9.9 from yesterday. 11/03/2018 she is for surgery today fact has had a colostomy. Patient did well with surgery 11/03/2018 postop day 1 patient has had no complications blood sugars are well maintained blood pressure medicine will be adjusted today ,to increase the Catapres this appears to help will change to a TTS patch Will let general surgery direct diet and potential discharge date - Time Time Spent with patient: 25-34 minutes
[2018-11-04] MEDS: SODIUM HYPOCHLORITE 0.25% SOLN 473 ML BOTTLE TP SCH ×2 (10:14→22:49)
[2018-11-04] MEDS ORDERED: ONDANSETRON HCL INJ/PF 4 MG/2 ML SDV IV PRN (11:00)
[2018-11-04] MEDS: NORMAL SALINE 1000 ML 1,000 ML IV PRN (13:09)
--- NOTE | 2018-11-04 13:50 | PDOC PROGRESS REPORT ---
Subjective Progress Note for:: 11/04/18 Subjective:: Patient having some abdominal pain, otherwise tolerated the operation well. Reason For Visit: PERIRECTAL ABSCESS Physical Exam Vital Signs: Temp Pulse Resp BP Pulse Ox 97.6 F 55 L 20 159/71 H 97 11/04/18 11:10 11/04/18 11:10 11/04/18 11:10 11/04/18 11:10 11/04/18 12:40 Pulse Oximeter Continuous Start: 10/31/18 23:05 Freq: RTQ4 Status: Active Protocol: Document 11/04/18 12:40 [facility] (Rec: 11/04/18 13:33 [facility] [id number]) Pulse Oximetry Assessment Oxygen Saturation (92-100) 97 Oxygen Flow Rate (L/min) 2 Oxygen Delivery Method Room Air Fraction of Inspired Oxygen (FIO2) 28 Equipment Usage Equipment in Use Continuous SpO2 Machine # N1 Intake & Output 11/03/18 11/04/18 11/05/18 06:59 06:59 06:59 Intake Total 4174 3120 1100 Output Total 4900 2460 Balance -394 760 4976 Weight 191.5 kg General appearance: PRESENT: no acute distress GI/Abdominal exam: PRESENT: other - The abdomen has incisions consistent with recent surgery. The colostomy appliance, bridge, and mucosa inspected and felt to be consistent with the postoperative findings. The abdomen is appropriately tender. Results Laboratory Results: 11/04/18 05:19 11/04/18 05:19 11/04/18 11/04/18 05:19 05:19 WBC 8.0 RBC 3.46 L Hgb 9.6 L Hct 28.9 L MCV 83 MCH 27.7 MCHC 33.2 RDW 14.5 H Plt Count 313 Sodium 135.9 L Potassium 4.2 Chloride 101 Carbon Dioxide 25 Anion Gap 10 BUN 9 Creatinine 0.83 Est GFR ( Amer) > 60 Glucose 142 H Calcium 8.4 Impressions: Abdomen/Pelvis CT 10/23/18 21:10 IMPRESSION: Gas-forming infection in the medial buttock bilaterally. Probable abscess formation in the region of the inferior prostate gland and in the region of the base of the penis. Other findings as described. TECHNICAL DOCUMENTATION: Quality ID # 436: Final reports with documentation of one or more dose reduction techniques (e.g., Automated exposure control, adjustment of the mA and/or kV according to patient size, use of iterative reconstruction technique) copyright 2011 [employer]- All Rights Reserved Assessment & Plan - Diagnosis (1) Status post colostomy Is this a current diagnosis for this admission?: Yes Plan: Impression: Patient is 1 day status post diverting transverse colon loop colostomy doing well. Recommendations: 1. We will get out of bed to chair 2. Leave Phelps catheter in. 3. Continue IV antibiotics. (2) Perirectal abscess Is this a current diagnosis for this admission?: Yes (3) Morbid obesity with BMI of 60.0-69.9, adult Is this a current diagnosis for this admission?: Yes
[2018-11-04] MEDS: CLONIDINE HCL 0.1 MG TABLET PO SCH ×2 (14:51→22:49)
[2018-11-04] MEDS: HYDROCODONE/ACETAMINOPHEN 10-325 MG TABLET PO PRN (14:59)
[2018-11-05] MEDS: PIPERACILLIN SODIUM/TAZOBACTAM 3.375 GM in NORMAL SALINE 100 ML IV SCH ×4 (01:06→18:47)
[2018-11-05] MEDS: HEPARIN SOD (PORCINE) 5,000 UNIT/ML 1 ML VIAL SUBCUT SCH ×3 (05:50→22:18)
[2018-11-05] MEDS: CLONIDINE HCL 0.1 MG TABLET PO SCH ×3 (05:55→22:10)
[2018-11-05] MEDS: NORMAL SALINE 1000 ML 1,000 ML IV PRN ×2 (05:55→22:17)
[2018-11-05] MEDS: FAMOTIDINE INJ/PF 20 MG/2 ML SDV IV SCH ×2 (09:04→22:11)
[2018-11-05] MEDS: LOSARTAN POTASSIUM 50 MG TABLET PO SCH (09:04)
[2018-11-05] MEDS: HYDROCODONE/ACETAMINOPHEN 10-325 MG TABLET PO PRN (09:04)
[2018-11-05] MEDS: HYDROCHLOROTHIAZIDE 25 MG TABLET PO SCH (09:04)
[2018-11-05] MEDS: INSULIN LISPRO 100 UNIT/ML 3 ML VIAL SUBCUT SCH ×4 (09:43→22:10)
--- NOTE | 2018-11-05 10:27 | PDOC PROGRESS REPORT ---
Subjective Progress Note for:: 11/05/18 Subjective:: No adverse events overnight. No new complaints. He is got a little bit of gas in his colostomy bag. Blood sugars have been in the mid 100s. Blood pressures are improved this morning, have been a bit elevated the last few days but he has started back on oral antihypertensive therapy. Reason For Visit: PERIRECTAL ABSCESS Physical Exam Vital Signs: Temp Pulse Resp BP Pulse Ox 98.3 F 47 L 20 147/70 H 99 11/05/18 07:32 11/05/18 07:32 11/05/18 07:32 11/05/18 07:32 11/05/18 08:34 Pulse Oximeter Continuous Start: 10/31/18 23:05 Freq: RTQ4 Status: Active Protocol: Document 11/05/18 08:34 NSM (Rec: 11/05/18 08:35 [facility]M [id number]) Pulse Oximetry Assessment Oxygen Saturation (92-100) 99 Oxygen Flow Rate (L/min) 2 Oxygen Delivery Method Nasal Cannula Fraction of Inspired Oxygen (FIO2) 28 Equipment Usage Equipment in Use Continuous SpO2 Machine # N1 Intake & Output 11/04/18 11/05/18 11/06/18 06:59 06:59 06:59 Intake Total 3120 2618 Output Total 2460 650 Balance 660 1968 Weight 191.5 kg General appearance: PRESENT: no acute distress, cooperative, disheveled, morbidly obese Respiratory exam: PRESENT: clear to auscultation gino, symmetrical, unlabored. ABSENT: accessory muscle use, chest wall tenderness, crackles, prolonged expiratory phas, rhonchi, tachypnea, wheezes Cardiovascular exam: PRESENT: RRR, +S1, +S2 Pulses: PRESENT: normal carotid pulses Vascular exam: PRESENT: normal capillary refill GI/Abdominal exam: PRESENT: hypoactive bowel sounds, soft, other - Left lower quadrant colostomy with some gas and minimal drainage in the bag. ABSENT: distended, guarding, rebound, tenderness Extremities exam: ABSENT: clubbing, pedal edema Musculoskeletal exam: PRESENT: normal inspection. ABSENT: deformity Neurological exam: PRESENT: alert, awake, oriented to person, oriented to place, oriented to situation Psychiatric exam: PRESENT: flat affect Skin exam: PRESENT: dry, warm Results Laboratory Results: 11/04/18 05:19 11/04/18 05:19 Impressions: Abdomen/Pelvis CT 10/23/18 21:10 IMPRESSION: Gas-forming infection in the medial buttock bilaterally. Probable abscess formation in the region of the inferior prostate gland and in the region of the base of the penis. Other findings as described. TECHNICAL DOCUMENTATION: Quality ID # 436: Final reports with documentation of one or more dose reduction techniques (e.g., Automated exposure control, adjustment of the mA and/or kV according to patient size, use of iterative reconstruction technique) copyright 2011 [employer]- All Rights Reserved Assessment and Plan - Diagnosis (1) Diabetes mellitus Qualifiers: Diabetes mellitus type: type 2 Diabetes mellitus prison insulin use: without watermaster use Diabetes mellitus complication status: with hyperglycemia Qualified Code(s): E11.65 - Type 2 diabetes mellitus with hyperglycemia Is this a current diagnosis for this admission?: Yes Plan: Blood sugars are currently well controlled on his current regimen (2) Hypertension Qualifiers: Hypertension type: essential hypertension Qualified Code(s): I10 - Essential (primary) hypertension Is this a current diagnosis for this admission?: Yes Plan: He is now on 4 different oral agents. These have been recently resumed. We will see how his blood pressure does on these agents before consideration of adjustment of coverage. (3) Perirectal abscess Is this a current diagnosis for this admission?: Yes Plan: Management per surgery (4) Morbid obesity with BMI of 60.0-69.9, adult Is this a current diagnosis for this admission?: Yes Plan: We will strongly encouraged lifestyle and dietary modification. - Time Time Spent with patient: 15-24 minutes
[2018-11-05] MEDS: AMLODIPINE BESYLATE 10 MG TABLET PO SCH (11:55)
[2018-11-05] MEDS: MORPHINE SULFATE 10 MG/ML INJ IV PRN (11:56)
--- NOTE | 2018-11-05 12:55 | PDOC PROGRESS REPORT ---
Subjective Progress Note for:: 11/05/18 Reason For Visit: PERIRECTAL ABSCESS Physical Exam Vital Signs: Temp Pulse Resp BP Pulse Ox 98.2 F 55 L 18 131/74 H 99 11/05/18 11:10 11/05/18 11:10 11/05/18 11:10 11/05/18 11:10 11/05/18 12:15 Pulse Oximeter Continuous Start: 10/31/18 23:05 Freq: RTQ4 Status: Active Protocol: Document 11/05/18 12:15 NSM (Rec: 11/05/18 12:15 NSM [email or web address]) Pulse Oximetry Assessment Oxygen Saturation (92-100) 99 Oxygen Flow Rate (L/min) 2 Oxygen Delivery Method Nasal Cannula Fraction of Inspired Oxygen (FIO2) 28 Equipment Usage Equipment in Use Continuous SpO2 Machine # N1 Intake & Output 11/04/18 11/05/18 11/06/18 06:59 06:59 06:59 Intake Total 3120 2718 Output Total 2460 650 Balance 660 2068 Weight 191.5 kg General appearance: PRESENT: no acute distress Head exam: PRESENT: normocephalic Eye exam: PRESENT: EOMI Ear exam: PRESENT: normal external ear exam Mouth exam: PRESENT: dry mucosa Neck exam: PRESENT: full ROM Respiratory exam: PRESENT: clear to auscultation gino Cardiovascular exam: PRESENT: RRR Pulses: PRESENT: normal radial pulses, normal femoral pulses GI/Abdominal exam: PRESENT: soft - Is soft nontender the stoma is pink however nonproductive yet of any stool or flatus Rectal exam: PRESENT: other - Perirectal incision is healing well there is no evidence of areas of necrosis or purulence there is good granulation bed improved from 2 days ago Gentrourinary exam: PRESENT: indwelling catheter Extremities exam: PRESENT: full ROM Musculoskeletal exam: PRESENT: full ROM Neurological exam: PRESENT: alert, awake, oriented to place Psychiatric exam: PRESENT: appropriate affect Skin exam: PRESENT: dry Results Laboratory Results: 11/04/18 05:19 11/04/18 05:19 Impressions: Abdomen/Pelvis CT 10/23/18 21:10 IMPRESSION: Gas-forming infection in the medial buttock bilaterally. Probable abscess formation in the region of the inferior prostate gland and in the region of the base of the penis. Other findings as described. TECHNICAL DOCUMENTATION: Quality ID # 436: Final reports with documentation of one or more dose reduction techniques (e.g., Automated exposure control, adjustment of the mA and/or kV according to patient size, use of iterative reconstruction technique) copyright 2011 [employer]- All Rights Reserved Assessment & Plan - Plan Summary Plan Summary: Patient status post incision and drainage of large perirectal abscess status post diverting colostomy Patient doing better this morning wound is markedly improved from 2 days ago We will start clear liquid diet await return of bowel function from the colostomy before advancing his diet Patient probably will be able to be discharged home after his colostomy started functioning
[2018-11-05] MEDS: SODIUM HYPOCHLORITE 0.25% SOLN 473 ML BOTTLE TP SCH ×2 (14:15→18:48)
[2018-11-06] MEDS: PIPERACILLIN SODIUM/TAZOBACTAM 3.375 GM in NORMAL SALINE 100 ML IV SCH ×4 (01:00→17:20)
[2018-11-06] MEDS: HEPARIN SOD (PORCINE) 5,000 UNIT/ML 1 ML VIAL SUBCUT SCH ×3 (05:22→22:41)
[2018-11-06] MEDS: MORPHINE SULFATE 10 MG/ML INJ IV PRN (06:47)
[2018-11-06] MEDS: CLONIDINE HCL 0.1 MG TABLET PO SCH ×3 (06:51→22:40)
[2018-11-06] MEDS: INSULIN LISPRO 100 UNIT/ML 3 ML VIAL SUBCUT SCH ×4 (07:50→22:41)
[2018-11-06] MEDS: LOSARTAN POTASSIUM 50 MG TABLET PO SCH (10:27)
[2018-11-06] MEDS: AMLODIPINE BESYLATE 10 MG TABLET PO SCH (10:27)
[2018-11-06] MEDS: SODIUM HYPOCHLORITE 0.25% SOLN 473 ML BOTTLE TP SCH ×2 (10:28→17:03)
[2018-11-06] MEDS: FAMOTIDINE INJ/PF 20 MG/2 ML SDV IV SCH ×2 (10:28→22:41)
[2018-11-06] MEDS: HYDROCHLOROTHIAZIDE 25 MG TABLET PO SCH (10:28)
[2018-11-06] MEDS: NORMAL SALINE 1000 ML 1,000 ML IV PRN (12:31)
[2018-11-06 15:21] LABS: APPEARANCE,URINE CLEAR; BILIRUBIN,URINE NEGATIVE (NEGATIVE); COLOR,URINE STRAW; GLUCOSE, URINE NEGATIVE (NEGATIVE); KETONES,URINE NEGATIVE (NEGATIVE); LEUKOCYTE ESTERASE,URINE NEGATIVE (NEGATIVE); NITRITE,URINE NEGATIVE (NEGATIVE); PROTEIN,URINE NEGATIVE (NEGATIVE); URINE SPECIFIC GRAVITY 1.009; UROBILINOGEN,URINE NEGATIVE mg/dL (<2.0)
--- NOTE | 2018-11-06 15:30 | PDOC PROGRESS REPORT ---
Subjective Progress Note for:: 11/06/18 Subjective:: No adverse events overnight. No new complaints. Blood pressure remains fairly well controlled. Blood sugars remain mostly in the mid 100s. Surgery has decided to advance his diet a little bit today. Reason For Visit: PERIRECTAL ABSCESS Physical Exam Vital Signs: Temp Pulse Resp BP Pulse Ox 98.5 F 52 L 17 150/73 H 99 11/06/18 14:52 11/06/18 14:52 11/06/18 14:52 11/06/18 14:52 11/06/18 14:52 Pulse Oximeter Continuous Start: 10/31/18 23:05 Freq: RTQ4 Status: Active Protocol: Document 11/06/18 12:32 NSM (Rec: 11/06/18 13:54 NSM [email or web address]) Pulse Oximetry Assessment Oxygen Delivery Method Room Air Fraction of Inspired Oxygen (FIO2) 21 Equipment Usage Equipment Standby Continuous SpO2 Machine # N1 Intake & Output 11/05/18 11/06/18 11/07/18 06:59 06:59 06:59 Intake Total 2718 2405 2596 Output Total 650 6600 1175 Balance 2068 -4195 1421 Weight 191 kg General appearance: PRESENT: no acute distress, cooperative, disheveled, morbidly obese Respiratory exam: PRESENT: clear to auscultation gino, symmetrical, unlabored. ABSENT: accessory muscle use, chest wall tenderness, crackles, prolonged expiratory phas, rhonchi, tachypnea, wheezes Cardiovascular exam: PRESENT: RRR, +S1, +S2 Pulses: PRESENT: normal carotid pulses Vascular exam: PRESENT: normal capillary refill GI/Abdominal exam: PRESENT: hypoactive bowel sounds, soft, other - Left lower quadrant colostomy with some gas and minimal drainage in the bag. ABSENT: distended, guarding, rebound, tenderness Extremities exam: ABSENT: clubbing, pedal edema Musculoskeletal exam: PRESENT: normal inspection. ABSENT: deformity Neurological exam: PRESENT: alert, awake, oriented to person, oriented to place, oriented to situation Psychiatric exam: PRESENT: flat affect Skin exam: PRESENT: dry, warm Results Laboratory Results: 11/04/18 05:19 11/04/18 05:19 11/06/18 14:54 Urine Color STRAW Urine Appearance CLEAR Urine pH 6.0 Ur Specific [place] 1.009 Urine Protein NEGATIVE Urine Glucose (UA) NEGATIVE Urine Ketones NEGATIVE Urine Blood NEGATIVE Urine Nitrite NEGATIVE Ur Leukocyte Esterase NEGATIVE Urine WBC (Auto) 1 Urine RBC (Auto) 1 10/31/18 13:17 Buttocks - Left Gram Stain - Final 10/31/18 13:17 Buttocks - Left Wound Culture - Final Escherichia Coli C.albicans/C.dubliniensis Impressions: Abdomen/Pelvis CT 10/23/18 21:10 IMPRESSION: Gas-forming infection in the medial buttock bilaterally. Probable abscess formation in the region of the inferior prostate gland and in the region of the base of the penis. Other findings as described. TECHNICAL DOCUMENTATION: Quality ID # [id number]: Final reports with documentation of one or more dose reduction techniques (e.g., Automated exposure control, adjustment of the mA and/or kV according to patient size, use of iterative reconstruction technique) copyright 2011 [employer]- All Rights Reserved Assessment and Plan - Diagnosis (1) Diabetes mellitus Qualifiers: Diabetes mellitus type: type 2 Diabetes mellitus watermaster insulin use: without watermaster use Diabetes mellitus complication status: with hyperglycemia Qualified Code(s): E11.65 - Type 2 diabetes mellitus with hyperglycemia Is this a current diagnosis for this admission?: Yes Plan: Blood sugars are currently well controlled on his current regimen (2) Hypertension Qualifiers: Hypertension type: essential hypertension Qualified Code(s): I10 - Essential (primary) hypertension Is this a current diagnosis for this admission?: Yes Plan: He is now on 4 different oral agents. These have been recently resumed. Blood pressure control is fair. (3) Perirectal abscess Is this a current diagnosis for this admission?: Yes Plan: Management per surgery (4) Morbid obesity with BMI of 60.0-69.9, adult Is this a current diagnosis for this admission?: Yes Plan: We will strongly encouraged lifestyle and dietary modification. - Time Time Spent with patient: 15-24 minutes
--- NOTE | 2018-11-06 19:30 | PDOC PROGRESS REPORT ---
Subjective Progress Note for:: 11/06/18 Reason For Visit: PERIRECTAL ABSCESS Physical Exam Vital Signs: Temp Pulse Resp BP Pulse Ox 98.5 F 52 L 17 150/73 H 96 11/06/18 14:52 11/06/18 14:52 11/06/18 14:52 11/06/18 14:52 11/06/18 16:05 Pulse Oximeter Continuous Start: 10/31/18 23:05 Freq: RTQ4 Status: Active Protocol: Document 11/06/18 16:05 NSM (Rec: 11/06/18 18:29 NSM [id number]) Pulse Oximetry Assessment Oxygen Saturation (92-100) 96 Oxygen Delivery Method Room Air Fraction of Inspired Oxygen (FIO2) 21 Equipment Usage Equipment Standby Continuous SpO2 Machine # N1 Intake & Output 11/05/18 11/06/18 11/07/18 06:59 06:59 06:59 Intake Total 2718 2405 2816 Output Total 650 6600 1600 Balance 2068 4195 1216 Weight 191 kg Results Laboratory Results: 11/04/18 05:19 11/04/18 05:19 11/06/18 14:54 Urine Color STRAW Urine Appearance CLEAR Urine pH 6.0 Ur Specific [place] 1.009 Urine Protein NEGATIVE Urine Glucose (UA) NEGATIVE Urine Ketones NEGATIVE Urine Blood NEGATIVE Urine Nitrite NEGATIVE Ur Leukocyte Esterase NEGATIVE Urine WBC (Auto) 1 Urine RBC (Auto) 1 10/31/18 13:17 Buttocks - Left Gram Stain - Final 10/31/18 13:17 Buttocks - Left Wound Culture - Final Escherichia Coli C.albicans/C.dubliniensis Impressions: Abdomen/Pelvis CT 10/23/18 21:10 IMPRESSION: Gas-forming infection in the medial buttock bilaterally. Probable abscess formation in the region of the inferior prostate gland and in the region of the base of the penis. Other findings as described. TECHNICAL DOCUMENTATION: Quality ID # 436: Final reports with documentation of one or more dose reduction techniques (e.g., Automated exposure control, adjustment of the mA and/or kV according to patient size, use of iterative reconstruction technique) copyright 2011 [employer]- All Rights Reserved Assessment & Plan - Diagnosis (1) Perirectal abscess Is this a current diagnosis for this admission?: Yes (2) Necrotizing soft tissue infection Is this a current diagnosis for this admission?: Yes - Plan Summary Plan Summary: This is a 33-year-old morbidly obese male with a perirectal abscess, turned necrotizing soft tissue infection. The patient is status post multiple debridements. His wound appears healthy. There is no further necrosis, or infection. I changed his packing at the bedside today with the help of the nursing staff. His colostomy is pink and productive. Overall, he is much improved. Advance diet. Ambulate in the hallway. Remove Phelps. Discharge planning. Anticipate discharge tomorrow, as long as home health is arranged and patient continues to progress well.
[2018-11-07] MEDS: PIPERACILLIN SODIUM/TAZOBACTAM 3.375 GM in NORMAL SALINE 100 ML IV SCH ×2 (01:03→06:36)
[2018-11-07] MEDS: MORPHINE SULFATE 10 MG/ML INJ IV PRN (02:36)
[2018-11-07] MEDS: HEPARIN SOD (PORCINE) 5,000 UNIT/ML 1 ML VIAL SUBCUT SCH ×2 (06:31→15:45)
[2018-11-07] MEDS: NORMAL SALINE 1000 ML 1,000 ML IV PRN (06:36)
[2018-11-07] MEDS: CLONIDINE HCL 0.1 MG TABLET PO SCH ×2 (06:36→15:46)
[2018-11-07] MEDS: INSULIN LISPRO 100 UNIT/ML 3 ML VIAL SUBCUT SCH ×2 (08:01→12:24)
[2018-11-07] MEDS: LOSARTAN POTASSIUM 50 MG TABLET PO SCH (10:12)
[2018-11-07] MEDS: HYDROCHLOROTHIAZIDE 25 MG TABLET PO SCH (10:13)
[2018-11-07] MEDS: FAMOTIDINE INJ/PF 20 MG/2 ML SDV IV SCH (10:13)
[2018-11-07] MEDS: AMLODIPINE BESYLATE 10 MG TABLET PO SCH (10:13)
[2018-11-07] MEDS: SODIUM HYPOCHLORITE 0.25% SOLN 473 ML BOTTLE TP SCH (12:25)
--- NOTE | 2018-11-07 15:34 | PDOC DISCHARGE SUMMARY ---
General - Admit/Disc Date/PCP Admission Date/Primary Care Provider: 10/24/18 03:09 Discharge Date: 11/07/18 - Discharge Diagnosis (1) Diabetes mellitus Is this a current diagnosis for this admission?: Yes (2) Morbid obesity with BMI of 60.0-69.9, adult Is this a current diagnosis for this admission?: Yes (3) Perirectal abscess Is this a current diagnosis for this admission?: Yes - Additional Information Resuscitation Status: Full Code Home Medications: Diclofenac Sodium [Voltaren] 75 mg PO BID 10/24/18 History of Present Illness History of Present Illness: JESSICA THOMAS is a 33 year old male who was admitted for a large left perirectal abscess on 10/24/18. Hospital Course Hospital Course: There is a 33-year-old male who was admitted on 10/24/2018 for large left perirectal abscess. On the same day of admission patient underwent debridement of large perirectal abscess under spinal anesthesia done by Dr. Joseph. On 10/26/2018 underwent a second debridement of the perirectal abscess done by Dr. Jackman again on spinal anesthesia. On 10/29/2018 underwent a third debridement by Dr. Joseph and on 10/31/2018 and the debridement by Dr. Fairbanks. On 11/03/2018 patient underwent a laparoscopic transverse colostomy diversion to prevent soiling of the rectal area where the abscess was close by. This was was done by Dr. Rhodes assisted by Dr. Fairbanks. Patient able to tolerate regular diet on 11/07/2018 prior to discharge. Arrangements were made for him to be followed at home by the by the visiting nurse. Also arrangements were made for him to be followed at the wound care center. A prescription for appliance for colostomy were given also a prescription for Toradol 10 mg p.o. every 12 hours as needed for pain was given. Patient was then discharged improved 11/07/2018 and also to be followed at the surgical clinic for eventual 12 reversal of the colostomy when the perirectal wound heals. Physical Exam Vital Signs: Temp Pulse Resp BP Pulse Ox 97.4 F 56 L 14 118/65 98 11/07/18 11:26 11/07/18 11:26 11/07/18 11:26 11/07/18 11:26 11/07/18 11:26 Pulse Oximeter Continuous Start: 10/31/18 23:05 Freq: RTQ4 Status: Active Protocol: Document 11/07/18 12:00 [facility] (Rec: 11/07/18 12:56 [facility] [id number]) Pulse Oximetry Assessment Equipment Usage Equipment Standby Continuous SpO2 Machine # N1 Intake & Output 11/06/18 11/07/18 11/08/18 06:59 06:59 06:59 Intake Total 2405 4616 Output Total 6600 1900 Balance -4195 2716 Weight 191 kg 187.3 kg Exam: colostomy is functioning well Persistent perirectal wound Results Laboratory Results: 11/04/18 05:19 11/04/18 05:19 10/31/18 13:17 Buttocks - Left Gram Stain - Final 10/31/18 13:17 Buttocks - Left Wound Culture - Final Escherichia Coli C.albicans/C.dubliniensis Impressions: Abdomen/Pelvis CT 10/23/18 21:10 IMPRESSION: Gas-forming infection in the medial buttock bilaterally. Probable abscess formation in the region of the inferior prostate gland and in the region of the base of the penis. Other findings as described. TECHNICAL DOCUMENTATION: Quality ID # 436: Final reports with documentation of one or more dose reduction techniques (e.g., Automated exposure control, adjustment of the mA and/or kV according to patient size, use of iterative reconstruction technique) copyright 2011 [employer]- All Rights Reserved Qualifiers - * PATIENT BEING DISCHARGED WITH ANY OF THE FOLLOWING DIAGNOSIS: No Acute Heart Failure - Is this a Heart Failure Patient?: No Plan Discharge Plan: [facility] home visits for colostomy care and perirectal abscess care Follow up surgical clinic and wound care center Time Spent: Less than 30 Minutes
[2018-11-07 16:49] VITALS: BP 153/63
== END 2018-11-07 17:14 | disposition home health service (06) | DRG 330 ==
LOC: ER 20:28 → EH 10-24 03:09 → 4N 10-24 08:26
PROVIDERS: ADMIT Surgery; ATTEND Surgery
PROC: 0KBM0ZZ Excision of Perineum Muscle, Open Approach (ICD-10-PCS; 2018-10-24)
PROC: 0KBM0ZZ Excision of Perineum Muscle, Open Approach (ICD-10-PCS; 2018-10-26)
PROC: 0KBM0ZZ Excision of Perineum Muscle, Open Approach (ICD-10-PCS; 2018-10-29)
PROC: 0JB90ZZ Excision of Buttock Subcutaneous Tissue and Fascia, Open Approach (ICD-10-PCS; 2018-10-31)
PROC: 0D1L4Z4 Bypass Transverse Colon to Cutaneous, Percutaneous Endoscopic Approach (ICD-10-PCS; principal; 2018-11-03 08:30)
DX: K61.1 Rectal abscess (principal); L02.31 Cutaneous abscess of buttock; E66.2 Morbid (severe) obesity with alveolar hypoventilation; Z68.44 Body mass index [BMI] 60.0-69.9, adult; E11.65 Type 2 diabetes mellitus with hyperglycemia; I10 Essential (primary) hypertension; K62.89 Other specified diseases of anus and rectum; N50.89 Other specified disorders of the male genital organs; B96.20 Unspecified Escherichia coli [E. coli] as the cause of diseases classified elsewhere; B95.2 Enterococcus as the cause of diseases classified elsewhere; B96.89 Other specified bacterial agents as the cause of diseases classified elsewhere; Z91.14 Patient's other noncompliance with medication regimen
CPT/HCPCS: 36415; 74177; 790; 80048; 80053; 81001; 82272; 82962; 83036; 83605; 85025; 85027; 86850; 86900; 86901; 86920; 87040; 87070; 87075; 87077; 87186; 87205; 87493; 902; 94762; 94799; 96361; 96374; 99284; J0330; J0360; J1170; J1450; J1644; J1650; J1815; J1885; J2250; J2270; J2405; J2543; J2704; J2710; J2765; J3010; J3370; J3490; J7030; J7050; S0028

== ENCOUNTER → 2018-12-26 | Outpatient (CLI) | payer OTHER ==
[2018-12-26 08:24] LABS: ABSOLUTE EOSINOPHILS # (AUTO) 0.2 10^3/uL (0.0-0.6); ABSOLUTE LYMPHOCYTES (AUTO) 1.9 10^3/uL (0.5-4.7); ABSOLUTE MONOCYTES (AUTO) 0.5 10^3/uL (0.1-1.4); ABSOLUTE NEUT (AUTO) 5.5 10^3/uL (1.7-8.2); BASOPHILS % (AUTO) 0.2 % (0-2); EOSINOPHILS % (AUTO) 2.1 % (0-6); HEMATOCRIT 38.6 % (37.9-51.0); HEMOGLOBIN 13.1 g/dL (13.5-17.0); LYMPHOCYTES % (AUTO) 23.7 % (13-45); MEAN CORPUSCULAR HGB CONC 33.8 g/dL (32.0-36.0); MEAN CORPUSCULAR VOLUME 80 fl (80-97); MONOCYTES % (AUTO) 5.8 % (3-13); PLATELET COUNT 301 10^3/uL (150-450); RED BLOOD COUNT 4.83 10^6/uL (4.35-5.55); RED CELL DISTRIBUTION WIDTH 15.1 % (11.5-14.0); SEGMENTED NEUTROPHILS % (AUTO) 68.2 % (42-78); TOTAL CELLS COUNTED % (AUTO) 100 %
[2018-12-26 08:50] LABS: ANION GAP 12 (5-19); BLOOD UREA NITROGEN 10 mg/dL (7-20); CALCIUM 9.5 mg/dL (8.4-10.2); CARBON DIOXIDE 29 mmol/L (22-30); CHLORIDE 99 mmol/L (98-107); CHOLESTEROL 148.24 mg/dL (0-200); GLUCOSE 169 mg/dL (75-110); POTASSIUM 3.5 mmol/L (3.6-5.0); TRIGLYCERIDES 130 mg/dL (<150)
[2018-12-26 09:09] LABS: DIRECT LDL 89 mg/dL (<100)
[2018-12-27 05:37] LABS: HEPATITIS C VIRUS AB <0.1 s/co ratio (0.0-0.9)
[2018-12-27 08:40] LABS: HEPATITS B SURFACE ANTIGEN Negative (Negative)
== END ==
LOC: CCC 07:04
DX: E11.8 Type 2 diabetes mellitus with unspecified complications (principal); I10 Essential (primary) hypertension; D64.9 Anemia, unspecified; K74.69 Other cirrhosis of liver
CPT/HCPCS: 36415; 80048; 80061; 83036; 84443; 85025; 86317; 86709; 86803; 86804; 87340

== ENCOUNTER 2019-02-13 08:52 | Inpatient (IN) | payer MEDICAID ==
[~2019-02-13 08:52] MED LIST: CEFAZOLIN SODIUM 2 GM in DEXTROSE 5%-WATER 100 ML IV PRN; LIDOCAINE 0.5% INJ-PF (5 MG/ML) 50 ML SDV SUBCUT PRN; METRONIDAZOLE 500 MG/NS RTU 500 MG/100 ML RTUPB IV PRN
[2019-02-13] MEDS ORDERED: METRONIDAZOLE 500 MG/NS RTU 500 MG/100 ML RTUPB IV ONE (10:02)
[2019-02-13] MEDS ORDERED: DEXAMETHASONE SOD PHOSPHATE INJ 4 MG/1 ML VIAL ONE (11:24)
[2019-02-13] MEDS ORDERED: FENTANYL CITRATE INJ/PF 250 MCG/5 ML AMPULE ONE (11:24)
[2019-02-13] MEDS ORDERED: MIDAZOLAM 2 MG/2 ML INJ ONE (11:24)
[2019-02-13] MEDS ORDERED: ONDANSETRON HCL INJ/PF 4 MG/2 ML SDV ONE (11:24)
[2019-02-13] MEDS ORDERED: PROPOFOL INJ 200 MG/20 ML VIAL IV ONE (11:25)
[2019-02-13] MEDS ORDERED: BUPIVACAINE INJ/PF LIPOSOME/PF 266 MG/20 ML SDV ONE (11:31)
[2019-02-13] MEDS ORDERED: PROMETHAZINE HCL INJ 25 MG/1 ML VIAL IV PRN (12:09)
[2019-02-13] MEDS ORDERED: DIPHENHYDRAMINE HCL 50 MG/ML VIAL IV PRN (12:09)
[2019-02-13] MEDS ORDERED: MEPERIDINE HCL/PF INJ 25 MG/1 ML DISP.SYRIN IV PRN (12:09)
[2019-02-13] MEDS ORDERED: FENTANYL CITRATE INJ/PF 100 MCG/2 ML AMPUL IV PRN ×3 (12:09)
[2019-02-13] MEDS ORDERED: SUCCINYLCHOLINE CHLORIDE INJ 200 MG/10 ML VIAL ONE (13:55)
[2019-02-13] MEDS ORDERED: NEOSTIGMINE METHYLSULFATE 10 MG/10 ML VIAL ONE (13:55)
[2019-02-13] MEDS ORDERED: GLYCOPYRROLATE 1 MG/5 ML VIAL ONE (13:55)
[2019-02-13] MEDS ORDERED: ROCURONIUM BROMIDE INJ 50 MG/5 ML VIAL IV ONE (13:55)
[2019-02-13] MEDS ORDERED: DEXTROSE 50%-WATER 25 GM/50 ML DISP.SYRIN IV PRN ×2 (13:56)
[2019-02-13] MEDS ORDERED: GLUCAGON,HUMAN RECOMB 1 MG INJ SUBCUT PRN (13:56)
[2019-02-13] MEDS ORDERED: ONDANSETRON HCL INJ/PF 4 MG/2 ML SDV IV PRN (13:56)
[2019-02-13] MEDS ORDERED: DEXTROSE 40% GEL 15 GM TUBE PO PRN ×2 (13:56)
--- NOTE | 2019-02-13 14:09 | Operative Report ---
Nonrecallable Operative Report DATE OF SURGERY: 02/13/19 PREOPERATIVE DIAGNOSIS: Transverse loop colostomy POSTOPERATIVE DIAGNOSIS: History of transverse loop colostomy OPERATION: Colostomy reversal SURGEON: KATINA BLANCO DISABILITY SPECIALIST: ELICIA STEIN ANESTHESIA: GA TISSUE REMOVED OR ALTERED: Old stoma site COMPLICATIONS: None ESTIMATED BLOOD LOSS: 50 cc INTRAOPERATIVE FINDINGS: See dictation PROCEDURE: Patient was brought to the operating awake alert in stable condition placed on the operative table supine position induced under general anesthesia intubated. After appropriate timeout and site verification the procedure commenced. The previous colostomy was double-barreled in the left lower quadrant circumferentially we came around the mucosal's cutaneous margin with the Bovie cautery. Then using Metzenbaum scissors we dissected down to the subcutaneous tissue and freed the stoma from the subcutaneous tissue and rectus fascia. Once the stoma was completely freed the proximal distal loop was able to be eviscerated from the wound and brought up in 2 view. Using Bovie cautery I amputated off the old stoma X excise that. Using a HAFSA stapler with place one limb in each loop of the proximal and distal closed and fired creating a colocolostomy. I then oversewed the end of the stoma in 2 layers the inner layer being a running 3-0 Vicryl and the outer layer was interrupted placed 2-0 silk in a Lembert fashion. We then dropped the loop of colon back into the abdominal cavity. We closed the the fascia with interrupted placed #2 Vicryl sutures. The wound was then copiously irrigated normal saline suctioned dry and the skin was closed with standard skin clips which completed the procedure estimated blood loss was less than 50 cc sponge needle counts were correct x2 the patient was awakened in the operating x-ray transferred recovery in stable condition no complications. Elicia MENDOZA was present for the entire procedure for help with wound retraction wound closure.
[2019-02-13] MEDS ORDERED: MORPHINE SULFATE 10 MG/ML INJ ONE (14:16)
[2019-02-13] MEDS: MORPHINE SULFATE 10 MG/ML INJ IV PRN ×4 (14:19→23:19)
[2019-02-13] MEDS: HEPARIN SOD (PORCINE) 5,000 UNIT/ML 1 ML VIAL SUBCUT SCH ×2 (15:16→21:30)
[2019-02-13] MEDS: POTASSI CL 20 MEQ/D5-1/2NS 1L 1,000 ML IV PRN ×2 (15:45→23:16)
[2019-02-13] MEDS ORDERED: AMLODIPINE BESYLATE 5 MG TABLET PO ONE (16:45)
[2019-02-13] MEDS: ACETAMINOPHEN INJ/PF 1000 MG/100 ML SDV IV SCH ×2 (17:19→23:16)
[2019-02-13] MEDS: FAMOTIDINE INJ/PF 20 MG/2 ML SDV IV SCH (21:30)
[2019-02-14 05:53] LABS: ABSOLUTE LYMPHOCYTES (AUTO) 1.4 10^3/uL (0.5-4.7); ABSOLUTE MONOCYTES (AUTO) 0.8 10^3/uL (0.1-1.4); ABSOLUTE NEUT (AUTO) 15.9 10^3/uL (1.7-8.2); BASOPHILS % (AUTO) 0.1 % (0-2); HEMATOCRIT 41.6 % (37.9-51.0); LYMPHOCYTES % (AUTO) 7.7 % (13-45); MEAN CORPUSCULAR HEMOGLOBIN 26.1 pg (27.0-33.4); MEAN CORPUSCULAR HGB CONC 33.7 g/dL (32.0-36.0); MEAN CORPUSCULAR VOLUME 78 fl (80-97); MONOCYTES % (AUTO) 4.6 % (3-13); PLATELET COUNT 300 10^3/uL (150-450); RED BLOOD COUNT 5.36 10^6/uL (4.35-5.55); RED CELL DISTRIBUTION WIDTH 14.1 % (11.5-14.0); SEGMENTED NEUTROPHILS % (AUTO) 87.6 % (42-78); TOTAL CELLS COUNTED % (AUTO) 100 %; WHITE BLOOD COUNT 18.2 10^3/uL (4.0-10.5)
[2019-02-14 06:15] LABS: ANION GAP 10 (5-19); BLOOD UREA NITROGEN 11 mg/dL (7-20); CALCIUM 9.3 mg/dL (8.4-10.2); CARBON DIOXIDE 24 mmol/L (22-30); CHLORIDE 104 mmol/L (98-107); GLUCOSE 161 mg/dL (75-110); POTASSIUM 4.3 mmol/L (3.6-5.0)
[2019-02-14] MEDS: HEPARIN SOD (PORCINE) 5,000 UNIT/ML 1 ML VIAL SUBCUT SCH ×3 (06:38→21:00)
[2019-02-14] MEDS: POTASSI CL 20 MEQ/D5-1/2NS 1L 1,000 ML IV PRN ×2 (06:38→21:00)
[2019-02-14] MEDS: ACETAMINOPHEN INJ/PF 1000 MG/100 ML SDV IV SCH ×4 (06:38→23:01)
--- NOTE | 2019-02-14 08:56 | PDOC PROGRESS REPORT ---
Subjective Progress Note for:: 02/14/19 Subjective:: feels well passed flatus Reason For Visit: COLOSTOMY REVERSAL Physical Exam Vital Signs: Temp Pulse Resp BP Pulse Ox 97.4 F 105 H 16 148/89 H 94 02/13/19 22:00 02/13/19 22:00 02/13/19 22:00 02/13/19 22:00 02/13/19 22:00 Intake & Output 02/13/19 02/14/19 02/15/19 06:59 06:59 06:59 Intake Total 3970 Output Total 1350 Balance 2620 Weight 181.1 kg General appearance: PRESENT: no acute distress, morbidly obese Head exam: PRESENT: normocephalic Eye exam: PRESENT: EOMI Ear exam: PRESENT: normal external ear exam Mouth exam: PRESENT: moist Neck exam: PRESENT: full ROM Respiratory exam: PRESENT: clear to auscultation gino Cardiovascular exam: PRESENT: RRR Pulses: PRESENT: normal radial pulses, normal femoral pulses Vascular exam: PRESENT: normal capillary refill GI/Abdominal exam: PRESENT: soft, other - wound clean, no cellulitis Rectal exam: PRESENT: deferred Extremities exam: PRESENT: full ROM Musculoskeletal exam: PRESENT: full ROM Neurological exam: PRESENT: alert, awake, oriented to person, oriented to place Psychiatric exam: PRESENT: appropriate affect Skin exam: PRESENT: dry Results Laboratory Results: 02/14/19 05:21 02/14/19 05:21 02/14/19 02/14/19 05:21 05:21 WBC 18.2 H RBC 5.36 Hgb 14.0 Hct 41.6 MCV 78 L MCH 26.1 L MCHC 33.7 RDW 14.1 H Plt Count 300 Seg Neutrophils % 87.6 H Sodium 137.9 Potassium 4.3 Chloride 104 Carbon Dioxide 24 Anion Gap 10 BUN 11 Creatinine 0.75 Est GFR ( Amer) > 60 Glucose 161 H Calcium 9.3 Assessment & Plan - Time Time Spent with patient: 25-34 minutes - Plan Summary Plan Summary: doing well pod 1 s/p colocolostomy has had some flatus will start clears.
[2019-02-14] MEDS: FAMOTIDINE INJ/PF 20 MG/2 ML SDV IV SCH ×2 (10:30→21:00)
[2019-02-15] MEDS: MORPHINE SULFATE 10 MG/ML INJ IV PRN (00:02)
[2019-02-15] MEDS: ACETAMINOPHEN INJ/PF 1000 MG/100 ML SDV IV SCH ×4 (05:00→23:18)
[2019-02-15] MEDS: POTASSI CL 20 MEQ/D5-1/2NS 1L 1,000 ML IV PRN ×3 (05:00→20:56)
[2019-02-15] MEDS: HEPARIN SOD (PORCINE) 5,000 UNIT/ML 1 ML VIAL SUBCUT SCH ×3 (05:50→21:00)
--- NOTE | 2019-02-15 07:56 | PDOC PROGRESS REPORT ---
Subjective Progress Note for:: 02/15/19 Subjective:: feels well passed stool and flatus gadiel full liquid diet Reason For Visit: COLOSTOMY REVERSAL Physical Exam Vital Signs: Temp Pulse Resp BP Pulse Ox 97.4 F 87 17 154/85 H 100 02/15/19 03:07 02/15/19 03:07 02/15/19 03:07 02/15/19 03:07 02/15/19 03:07 Intake & Output 02/14/19 02/15/19 02/16/19 06:59 06:59 06:59 Intake Total 3970 2240 Output Total 1350 900 Balance 2620 1340 Weight 181.1 kg 181.1 kg General appearance: PRESENT: no acute distress Head exam: PRESENT: normocephalic Eye exam: PRESENT: EOMI Ear exam: PRESENT: normal external ear exam Mouth exam: PRESENT: moist Neck exam: PRESENT: full ROM Respiratory exam: PRESENT: clear to auscultation gino Cardiovascular exam: PRESENT: RRR Pulses: PRESENT: normal radial pulses, normal femoral pulses GI/Abdominal exam: PRESENT: soft Rectal exam: PRESENT: deferred Musculoskeletal exam: PRESENT: full ROM Neurological exam: PRESENT: alert, awake, oriented to person, oriented to place Psychiatric exam: PRESENT: appropriate affect Skin exam: PRESENT: dry Results Laboratory Results: 02/14/19 05:21 02/14/19 05:21 Assessment & Plan - Time Time Spent with patient: 25-34 minutes - Plan Summary Plan Summary: s/p colocolostomy doing well passing stool and flatus wound clean dry will advance diet poss home in am
[2019-02-15 08:48] LABS: ABSOLUTE BASOPHILS # (AUTO) 0.2 10^3/uL (0.0-0.2); ABSOLUTE EOSINOPHILS # (AUTO) 0.1 10^3/uL (0.0-0.6); ABSOLUTE LYMPHOCYTES (AUTO) 3.2 10^3/uL (0.5-4.7); ABSOLUTE MONOCYTES (AUTO) 0.7 10^3/uL (0.1-1.4); ABSOLUTE NEUT (AUTO) 8.8 10^3/uL (1.7-8.2); BASOPHILS % (AUTO) 1.3 % (0-2); EOSINOPHILS % (AUTO) 0.5 % (0-6); HEMATOCRIT 40.7 % (37.9-51.0); HEMOGLOBIN 13.5 g/dL (13.5-17.0); LYMPHOCYTES % (AUTO) 24.9 % (13-45); MEAN CORPUSCULAR HEMOGLOBIN 26.1 pg (27.0-33.4); MEAN CORPUSCULAR HGB CONC 33.3 g/dL (32.0-36.0); MEAN CORPUSCULAR VOLUME 79 fl (80-97); MONOCYTES % (AUTO) 5.6 % (3-13); PLATELET COUNT 284 10^3/uL (150-450); RED BLOOD COUNT 5.19 10^6/uL (4.35-5.55); RED CELL DISTRIBUTION WIDTH 14.3 % (11.5-14.0); SEGMENTED NEUTROPHILS % (AUTO) 67.7 % (42-78); TOTAL CELLS COUNTED % (AUTO) 100 %
[2019-02-15 08:49] LABS: ANION GAP 9 (5-19); BLOOD UREA NITROGEN 10 mg/dL (7-20); CALCIUM 9.1 mg/dL (8.4-10.2); CARBON DIOXIDE 27 mmol/L (22-30); CHLORIDE 105 mmol/L (98-107); GLUCOSE 120 mg/dL (75-110); POTASSIUM 3.8 mmol/L (3.6-5.0)
[2019-02-15] MEDS: METFORMIN HCL 500 MG TABLET PO SCH ×2 (09:45→17:04)
[2019-02-15] MEDS: FAMOTIDINE INJ/PF 20 MG/2 ML SDV IV SCH ×2 (09:46→21:00)
[2019-02-15] MEDS: AMLODIPINE BESYLATE 10 MG TABLET PO SCH (09:46)
[2019-02-15] MEDS ORDERED: HYDRALAZINE HCL INJ/PF 20 MG/1 ML SDV ONE (20:47)
[2019-02-15] MEDS: HYDRALAZINE HCL INJ/PF 20 MG/1 ML SDV IV PRN ×2 (20:53→23:18)
[2019-02-16] MEDS: HYDRALAZINE HCL INJ/PF 20 MG/1 ML SDV IV PRN (03:33)
[2019-02-16] MEDS ORDERED: HYDRALAZINE HCL INJ/PF 20 MG/1 ML SDV ONE (04:48)
[2019-02-16] MEDS: HEPARIN SOD (PORCINE) 5,000 UNIT/ML 1 ML VIAL SUBCUT SCH (05:00)
[2019-02-16] MEDS: ACETAMINOPHEN INJ/PF 1000 MG/100 ML SDV IV SCH (05:00)
[2019-02-16] MEDS ORDERED: HYDRALAZINE HCL INJ/PF 20 MG/1 ML SDV IV ONE (05:00)
--- NOTE | 2019-02-16 08:08 | PDOC DISCHARGE SUMMARY ---
General - Admit/Disc Date/PCP Admission Date/Primary Care Provider: 02/13/19 08:52 LYNDSAY CHRISTIANSON PA-C Discharge Date: 02/16/19 - Discharge Diagnosis Final Diagnosis: colostomy post reversal - Assessment Summary: Patient was admitted for elective colostomy reversal underwent the procedure on the day of admission. he did well postoperatively had a routine benign postop course she was started on a clear liquid diet on the first hospital day. pt had return of bowel function, and diet was advanced pt now gadiel reg diet having bm's and ready for dc home today. - Additional Information Resuscitation Status: Full Code Discharge Diet: As Tolerated Discharge Activity: Activity As Tolerated, No Lifting Over 10 Pounds Referrals: KATINA JIM MD [ACTIVE STAFF] - Home Medications: Amlodipine Besylate [Norvasc 10 mg Tablet] 10 mg PO DAILY 02/13/19 Metformin HCl 250 mg PO BID 02/13/19 History of Present Illiness History of Present Illness: JESSICA THOMAS is a 33 year old male Physical Exam Vital Signs: Temp Pulse Resp BP Pulse Ox 97.6 F 90 16 154/84 H 100 02/16/19 04:39 02/16/19 06:08 02/16/19 03:15 02/16/19 06:08 02/16/19 06:08 Intake & Output 02/15/19 02/16/19 02/17/19 06:59 06:59 06:59 Intake Total 2240 3000 Output Total 900 Balance 1340 3000 Weight 181.1 kg 177.9 kg Results Laboratory Results: WBC 13.0 10^3/uL (4.0-10.5) H 02/15/19 08:15 RBC 5.19 10^6/uL (4.35-5.55) 02/15/19 08:15 Hgb 13.5 g/dL (13.5-17.0) 02/15/19 08:15 Hct 40.7 % (37.9-51.0) 02/15/19 08:15 MCV 79 fl (80-97) L 02/15/19 08:15 MCH 26.1 pg (27.0-33.4) L 02/15/19 08:15 MCHC 33.3 g/dL (32.0-36.0) 02/15/19 08:15 RDW 14.3 % (11.5-14.0) H 02/15/19 08:15 Plt Count 284 10^3/uL (150-450) 02/15/19 08:15 Lymph % (Auto) 24.9 % (13-45) 02/15/19 08:15 Davis % (Auto) 5.6 % (3-13) 02/15/19 08:15 Eos % (Auto) 0.5 % (0-6) 02/15/19 08:15 Baso % (Auto) 1.3 % (0-2) 02/15/19 08:15 Absolute Neuts (auto) 8.8 10^3/uL (1.7-8.2) H 02/15/19 08:15 Absolute Lymphs (auto) 3.2 10^3/uL (0.5-4.7) 02/15/19 08:15 Absolute Monos (auto) 0.7 10^3/uL (0.1-1.4) 02/15/19 08:15 Absolute Eos (auto) 0.1 10^3/uL (0.0-0.6) 02/15/19 08:15 Absolute Basos (auto) 0.2 10^3/uL (0.0-0.2) 02/15/19 08:15 Seg Neutrophils % 67.7 % (42-78) 02/15/19 08:15 Sodium 141.4 mmol/L (137-145) 02/15/19 08:15 Potassium 3.8 mmol/L (3.6-5.0) 02/15/19 08:15 Chloride 105 mmol/L (98-107) 02/15/19 08:15 Carbon Dioxide 27 mmol/L (22-30) 02/15/19 08:15 Anion Gap 9 (5-19) 02/15/19 08:15 BUN 10 mg/dL (7-20) 02/15/19 08:15 Creatinine 0.76 mg/dL (0.52-1.25) 02/15/19 08:15 Est GFR ( Amer) > 60 (>60) 02/15/19 08:15 Est GFR (MDRD) Non-Af > 60 (>60) 02/15/19 08:15 Glucose 120 mg/dL (75-110) H 02/15/19 08:15 POC Glucose 140 mg/dL (70-110) H 02/15/19 08:14 Calcium 9.1 mg/dL (8.4-10.2) 02/15/19 08:15
[2019-02-16] MEDS: METFORMIN HCL 500 MG TABLET PO SCH (08:25)
[2019-02-16 09:24] LABS: ABSOLUTE EOSINOPHILS # (AUTO) 0.1 10^3/uL (0.0-0.6); ABSOLUTE LYMPHOCYTES (AUTO) 2.2 10^3/uL (0.5-4.7); ABSOLUTE MONOCYTES (AUTO) 0.7 10^3/uL (0.1-1.4); ABSOLUTE NEUT (AUTO) 8.2 10^3/uL (1.7-8.2); BASOPHILS % (AUTO) 0.3 % (0-2); EOSINOPHILS % (AUTO) 1.1 % (0-6); HEMOGLOBIN 14.1 g/dL (13.5-17.0); LYMPHOCYTES % (AUTO) 19.5 % (13-45); MEAN CORPUSCULAR HEMOGLOBIN 26.4 pg (27.0-33.4); MEAN CORPUSCULAR HGB CONC 33.4 g/dL (32.0-36.0); MEAN CORPUSCULAR VOLUME 79 fl (80-97); MONOCYTES % (AUTO) 6.2 % (3-13); PLATELET COUNT 276 10^3/uL (150-450); RED BLOOD COUNT 5.33 10^6/uL (4.35-5.55); RED CELL DISTRIBUTION WIDTH 14.4 % (11.5-14.0); SEGMENTED NEUTROPHILS % (AUTO) 72.9 % (42-78); TOTAL CELLS COUNTED % (AUTO) 100 %; WHITE BLOOD COUNT 11.3 10^3/uL (4.0-10.5)
[2019-02-16 09:39] LABS: ANION GAP 11 (5-19); BLOOD UREA NITROGEN 7 mg/dL (7-20); CALCIUM 9.5 mg/dL (8.4-10.2); CARBON DIOXIDE 26 mmol/L (22-30); CHLORIDE 102 mmol/L (98-107); GLUCOSE 123 mg/dL (75-110); POTASSIUM 3.8 mmol/L (3.6-5.0)
[2019-02-16] MEDS: AMLODIPINE BESYLATE 10 MG TABLET PO SCH (10:58)
[2019-02-16] MEDS: FAMOTIDINE INJ/PF 20 MG/2 ML SDV IV SCH (10:58)
[2019-02-16 11:17] VITALS: BP 154/84
== END 2019-02-16 11:45 | disposition home or self-care (01) | DRG 330 ==
LOC: INOR 08:52 → UNDOADMIN 08:52 → INOR 15:10 → 5 15:10
PROVIDERS: ADMIT Surgery; ATTEND Surgery
PROC: 0DBL0ZZ Excision of Transverse Colon, Open Approach (ICD-10-PCS; principal; 2019-02-13 11:30)
DX: Z43.3 Encounter for attention to colostomy (principal); Z68.43 Body mass index [BMI] 50.0-59.9, adult; E11.9 Type 2 diabetes mellitus without complications; I10 Essential (primary) hypertension; E66.9 Obesity, unspecified; Z87.891 Personal history of nicotine dependence; Z88.1 Allergy status to other antibiotic agents; Z79.84 Long term (current) use of oral hypoglycemic drugs
CPT/HCPCS: 36415; 80048; 82962; 840; 85025; 94799; C9290; J0131; J0330; J0360; J0690; J1100; J2250; J2270; J2405; J2704; J2710; J3010; J3480; J3490; J7060; S0028